=== PATIENT | female | born 1990 | race Caucasian/White ===

== ENCOUNTER → 2016-09-28 | Outpatient (CLI) | payer MEDICAID | END | disposition home or self-care (01) | LOC: LABWHC1 14:36 | PROVIDERS: ATTEND Internal Medicine Endocrinology, Diabetes & Metabolism | DX: E03.8 Other specified hypothyroidism (principal) | CPT/HCPCS: 36415; 84443 ==

== ENCOUNTER → 2017-02-01 | Outpatient (CLI) | payer MEDICAID | END | disposition home or self-care (01) | LOC: LABWHC1 07:43 | PROVIDERS: ATTEND Internal Medicine Endocrinology, Diabetes & Metabolism | DX: E03.8 Other specified hypothyroidism (principal) | CPT/HCPCS: 36415; 84443 ==

== ENCOUNTER → 2017-03-18 | Outpatient (CLI) | payer MEDICAID | END | disposition home or self-care (01) | LOC: LABWHC1 07:55 | PROVIDERS: ATTEND Internal Medicine Endocrinology, Diabetes & Metabolism | DX: E03.8 Other specified hypothyroidism (principal) | CPT/HCPCS: 36415; 84443 ==

== ENCOUNTER → 2017-03-30 | Outpatient (CLI) | payer MEDICAID ==
--- NOTE | 2017-03-30 15:01 | US ---
EXAMINATION TYPE: US OB <=14 wks transvag DATE OF EXAM: 03/30/2017 COMPARISON: NONE CLINICAL HISTORY: O46.91 BLEEDING AND SPOTTING. EXAM PERFORMED: Transvaginal (TV) and Transabdominal (TA) EXAM MEASUREMENTS: GESTATIONAL AGE / DATING Physician Established: Not established Dates by LMP: (7 weeks/3 days) EDC: 11/13/2017 Dates by First Scan: No previous Dates by Current Scan for: No pole visualized on this exam MATERNAL ANATOMY Uterus: 7.4 x 3.4 x 4.2 cm Right Ovary: 3.2 x 1.3 x 1.3 Left Ovary: 3.2 x 2.3 x 2.8 Post CDS / Adnexa: wnl Presence of free fluid: No Presence of corpus luteal cyst: Hypoechoic area visualized on left ovary measuring 1.6 x 1.1 x 1.3 cm Presence of subchorionic bleed: Yes, measuring 0.4 x 0.1 x 0.4 cm GESTATION / SURVEY MSD: 0.6 cm - too early to date IUP: No yolk sac or pole visualized on this exam Date of LMP: 02/06/2017 Beta HcG (if available): Not available at time of exam Anteverted uterus is seen. Endometrium appears thickened up to 17 mmr. There is 6 x 6 x 7 mm round an echoic area could reflect early gestational sac.No yolk sac or pole is present. No free fluid i s seen in pelvic cul-de-sac. Tiny curvilinear fluid collection inferiorly could reflect tiny subchori onic hemorrhage related to implantation. Both ovaries are identified. Within left ovary there is 1.6 cm hypoechoic hypervascular area in perip danyell could reflect corpus luteal cyst. No suspicious solid or cystic extraovarian adnexal masses are noted. IMPRESSION: Findings favor too early to visualize intrauterine however spontaneous is in diffe rential and ectopic is not excluded. Serial beta hCG and ultrasound follow-up is advised.
== END | disposition home or self-care (01) ==
LOC: RADUSWWP 13:10
PROVIDERS: ATTEND Obstetrics & Gynecology
DX: O46.91 Antepartum hemorrhage, unspecified, first trimester (principal); Z3A.14 14 weeks gestation of pregnancy
CPT/HCPCS: 76801; 76817; 84702; 86850; 86900; 86901

== ENCOUNTER → 2017-04-01 | Outpatient (CLI) | payer MEDICAID | END | disposition home or self-care (01) | LOC: LABWHC1 15:16 | PROVIDERS: ATTEND Obstetrics & Gynecology | DX: Z34.01 Encounter for supervision of normal first pregnancy, first trimester (principal) | CPT/HCPCS: 36415; 84702; 86850; 86870; 86880; 86900; 86901 ==

== ENCOUNTER → 2017-04-08 | Outpatient (CLI) | payer MEDICAID ==
[2017-04-08 13:09] LABS: Basophils % (A) 0 %; CH 31.3; CHCM 35.2; Eosinophils # (A) 0.2 k/uL (0-0.7); Eosinophils % (A) 1 %; HCT 43.8 % (34.0-46.0); HDW 2.59; HGB 14.9 gm/dL (11.4-16.0); Luc % (Auto) 1; Lymphocytes # (A) 2.1 k/uL (1.0-4.8); Lymphocytes % (A) 19 %; MCH 30.3 pg (25.0-35.0); MCV 89.3 fL (80.0-100.0); Mean Platelet Volume 6.5; Monocytes # (A) 0.5 k/uL (0-1.0); Monocytes % (A) 4 %; Neutrophils % (A) 74 %; RDW 13.7 % (11.5-15.5); WBC 10.8 k/uL (3.8-10.6); WBC (Perox) 11.17
[2017-04-08 14:11] LABS: ALT 32 U/L (9-52); AST 17 U/L (14-36); Alkaline Phosphatase 72 U/L (38-126); Anion Gap 10 mmol/L; Blood Urea Nitrogen 10 mg/dL (7-17); Calcium 9.9 mg/dL (8.4-10.2); Carbon Dioxide 26 mmol/L (22-30); Chloride 104 mmol/L (98-107); Cholesterol 152 mg/dL (<200); Glucose 84 mg/dL (74-99); HDL Cholesterol 33 mg/dL (40-60); Non-African American GFR(MDRD) >60 (>60 ml/min/1.73 sqM); Potassium 4.2 mmol/L (3.5-5.1); Sodium 140 mmol/L (137-145); Total Protein 7.1 g/dL (6.3-8.2)
[2017-04-08 15:00] LABS: Vitamin B12 561 pg/mL (239-931)
[2017-04-08 20:43] LABS: Hemoglobin A1C 4.9 % (4.2-6.1)
--- NOTE | 2017-04-09 09:08 | US ---
EXAMINATION TYPE: US OB <=14 wks transvag DATE OF EXAM: 04/08/2017 COMPARISON: 03/30/2017 CLINICAL HISTORY: Z36 FOLLOW UP PREV ADN US. Follow up prior abnormal ultrasound 03/30/17, miscarriage yesterday EXAM PERFORMED: Transvaginal (TV) and Transabdominal (TA) EXAM MEASUREMENTS: GESTATIONAL AGE / DATING Physician Established: not established Dates by LMP: (8 weeks/5 days) EDC: 11/13/17 Dates by First Scan: no pole visualized Dates by Current Scan for: no evidence of IUP seen today MATERNAL ANATOMY Uterus: 8.3 x 3.8 x 5.4cm Right Ovary: 3.5 x 2.6 x 1.6cm Left Ovary: 2.5 x 2.0 x 2.2cm Post CDS / Adnexa: wnl Presence of free fluid: no GESTATION / SURVEY IUP: No IUP seen at this time Date of LMP: 02/06/17 Beta HcG (if available): unavailable No evidence of IUP at this time. Nabothian cysts noted. Ectopic and spontaneous could be within the differential. Previous suspected gesta tional sac within the endometrial canal is not identified at this time. IMPRESSION: 1. No intrauterine gestation identified. Correlate with beta hCG. Follow-up exams can be performed as clinically indicated.
== END ==
LOC: RADUSWWP 11:49
PROVIDERS: ATTEND Obstetrics & Gynecology
DX: Z36 Encounter for antenatal screening of mother (principal); O99.281 Endocrine, nutritional and metabolic diseases complicating pregnancy, first trimester; E03.9 Hypothyroidism, unspecified; O99.89 Other specified diseases and conditions complicating pregnancy, childbirth and the puerperium; R73.9 Hyperglycemia, unspecified; O99.284 Endocrine, nutritional and metabolic diseases complicating childbirth; E78.4 Other hyperlipidemia; O26.811 Pregnancy related exhaustion and fatigue, first trimester; Z3A.00 Weeks of gestation of pregnancy not specified
CPT/HCPCS: 76801; 76817; 80053; 80061; 82306; 82607; 83036; 84439; 84443; 84702; 85025

== ENCOUNTER → 2017-04-16 | Outpatient (CLI) | payer MEDICAID | END | disposition home or self-care (01) | LOC: LABWHC1 08:18 | PROVIDERS: ATTEND Obstetrics & Gynecology | DX: O02.1 Missed abortion (principal) | CPT/HCPCS: 36415; 84702 ==

== ENCOUNTER → 2017-09-21 | Outpatient (CLI) | payer MEDICAID ==
[2017-09-21 08:24] LABS: HCT 38.5 % (34.0-46.0); HGB 13.3 gm/dL (11.4-16.0); MCH 29.5 pg (25.0-35.0); MCHC 34.5 g/dL (31.0-37.0); MCV 85.4 fL (80.0-100.0); Mean Platelet Volume 6.3; Platelet Count 346 k/uL (150-450); RBC 4.51 m/uL (3.80-5.40); RDW 13.1 % (11.5-15.5); WBC 12.5 k/uL (3.8-10.6)
[2017-09-21 08:44] LABS: Glucose 86 mg/dL (74-99)
[2017-09-21 08:50] LABS: T4, Free (Free Thyroxine) 1.11 ng/dL (0.78-2.19)
[2017-09-21 12:16] LABS: HIV AB P24 Non-Reactive (Non-Reactive); HIV P24 AG Non-Reactive (Non-Reactive)
[2017-09-22 04:21] LABS: Toxoplasma Antibody (IgG) <3.0 IU/mL (<7.2); Toxoplasma Antibody (IgM) <3.0 AU/mL (<8.0)
--- NOTE | 2017-09-22 08:22 | US ---
EXAMINATION TYPE: US OB <= 14 wk fetus DATE OF EXAM: 09/21/2017 COMPARISON: NONE CLINICAL HISTORY: Z36 CONFIRM DATES. Dates EXAM PERFORMED: Transabdominal (TA) EXAM MEASUREMENTS: GESTATIONAL AGE / DATING Dates by LMP: (8 weeks/5 days) EDC: 04/28/2018 Dates by Current Scan: (7 weeks/5 days) EDC: 05/05/2018 MATERNAL ANATOMY Uterus: 8.8 x 5.3 x 4.8 cm Right Ovary: 2.6 x 1.5 x 1.5 cm Left Ovary: 3.2 x 2.6 x 2.5 cm Post CDS / Adnexa: no free fluid Presence of free fluid: no Presence of subchorionic bleed: no GESTATION / SURVEY CRL: 1.4 cm (7 weeks/5 days) MSD: Seen, not measured Yolk Sac (normal less than 6mm): 2.5 Heart Rate: 168 bpm Rhythm: Normal IUP: Viable IUP Date of LMP: 07/22/2017, Beta HcG (if available): Not available at this time Live single IUP measuring 7 weeks 5 days. Left ovarian cystic appearing lesion seen = 2.5 x 1.9 x 2. 2 cm IMPRESSION: 1. Single intrauterine gestation estimated at 7 weeks 5 days gestation based on the current ultrasoun d measurements of the crown-rump length. This would have a calculated EDC of 05/05/2018. 2. Cardiac activity measures 168 bpm.
== END | disposition home or self-care (01) ==
LOC: RADUSWWP 07:50
PROVIDERS: ATTEND Obstetrics & Gynecology
DX: O26.811 Pregnancy related exhaustion and fatigue, first trimester (principal); O99.284 Endocrine, nutritional and metabolic diseases complicating childbirth; E03.8 Other specified hypothyroidism; Z3A.01 Less than 8 weeks gestation of pregnancy
CPT/HCPCS: 36415; 76801; 82565; 82947; 84439; 84443; 85027; 86762; 86777; 86778; 86780; 86850; 86900; 86901; 87340; 87390

== ENCOUNTER → 2017-10-18 | Outpatient (CLI) | payer MEDICAID ==
[2017-10-18 08:46] LABS: T4, Free (Free Thyroxine) 0.95 ng/dL (0.78-2.19)
== END | disposition home or self-care (01) ==
LOC: LABWHC1 07:46
PROVIDERS: ATTEND Internal Medicine Endocrinology, Diabetes & Metabolism
DX: E03.8 Other specified hypothyroidism (principal)
CPT/HCPCS: 36415; 84439; 84443

== ENCOUNTER → 2017-11-04 | Outpatient (CLI) | payer MEDICAID ==
--- NOTE | 2017-11-05 07:52 | ECHOF ---
Referral Reason:Palpitations MEASUREMENTS -------- HEIGHT: 157.5 cm WEIGHT: 65.8 kg BP: 117/70 RVIDd: 2.3 cm (< 3.3) IVSd: 0.8 cm (0.6 - 1.1) LVIDd: 4.5 cm (3.9 - 5.3) LVPWd: 0.9 cm (0.6 - 1.1) IVSs: 1.4 cm LVIDs: 2.8 cm LVPWs: 1.4 cm LAESV Index (A-L): 20.08 ml/m Ao Diam: 2.6 cm (2.0 - 3.7) AV Cusp: 2.0 cm (1.5 - 2.6) MV EXCURSION: 17.961 mm (> 18.000) MV EF SLOPE: 130 mm/s (70 - 150) EPSS: 0.4 cm MV E Adi: 0.80 m/s MV DecT: 205 ms MV A Adi: 0.50 m/s MV E/A Ratio: 1.61 RAP: 5.00 mmHg RVSP: 20.05 mmHg FINDINGS -------- Sinus rhythm. This was a technically good study. The left ventricular size is normal. Left ventricular wall thickness is normal. Overall left vent ricular systolic function is normal with, an EF between 60 - 65 %. The right ventricle is normal in size and function. Normal LA size by volume 22+/-6 ml/m2. The right atrium is normal in size. The aortic valve is trileaflet, and appears structurally normal. No aortic stenosis or regurgitation. The mitral valve is normal. Trace tricuspid regurgitation present. Right ventricular systolic pressure is normal at < 35 mmHg. Trace/mild (physiologic) pulmonic regurgitation. The aortic root size is normal. Normal inferior vena cava with normal inspiratory collapse consistent with estimated right atrial pre ssure of 5 mmHg. There is no pericardial effusion. CONCLUSIONS -------- 1. Sinus rhythm. 2. This was a technically good study. 3. The left ventricular size is normal. 4. Left ventricular wall thickness is normal. 5. Overall left ventricular systolic function is normal with, an EF between 60 - 65 %. 6. The right ventricle is normal in size and function. 7. Normal LA size by volume 22+/-6 ml/m2. 8. The right atrium is normal in size. 9. The aortic valve is trileaflet, and appears structurally normal. No aortic stenosis or regurgitati on. 10. The mitral valve is normal. 11. Trace tricuspid regurgitation present. 12. Right ventricular systolic pressure is normal at < 35 mmHg. 13. Trace/mild (physiologic) pulmonic regurgitation. 14. The aortic root size is normal. 15. Normal inferior vena cava with normal inspiratory collapse consistent with estimated right atrial pressure of 5 mmHg. 16. There is no pericardial effusion. DIRECTOR OF STRATEGIC SOURCING: Divya Vines RDCS
== END | disposition home or self-care (01) ==
LOC: RADECHMAIN 12:31
PROVIDERS: ATTEND Internal Medicine Interventional Cardiology
DX: I07.1 Rheumatic tricuspid insufficiency (principal); I37.1 Nonrheumatic pulmonary valve insufficiency; R00.2 Palpitations
CPT/HCPCS: 93225; 93226; 93306

== ENCOUNTER → 2017-12-14 | Outpatient (CLI) | payer MEDICAID ==
--- NOTE | 2017-12-15 10:37 | US ---
EXAMINATION TYPE: US OB anatomy transabd DATE OF EXAM: 12/14/2017 COMPARISON: US HISTORY: O36.62XO Maternal care for excessive growth, TECHNIQUE: Transabdominal (TA) EXAM MEASUREMENTS: GESTATIONAL AGE / DATING Physician Established: (19 weeks/5 days) EDC: 05/05/2018 Dates by LMP: (20 weeks/5 days) EDC: 04/28/2018 Dates by First Scan: (19 weeks/5 days) EDC: 05/05/2018 Dates by Current Scan for: (20 weeks/0 days) EDC: 05/03/2018 SURVEY IUP: Single PLACENTA: Posterior PREVIA: No previa LINN: 16.3 cm Normal CERVICAL LENGTH (transabdominal: norm > 3.0cm): 3.9 cm BIOMETRY PRESENTATION: Breech BPD: 4.7 cm 20 weeks / 1 days HC: 17.2 cm 19 weeks / 5 days AC: 15.8 cm 20 weeks / 6 days FL: 3.3 cm 20 weeks / 2 days ESTIMATED WEIGHT IN GRAMS: 360 grams ESTIMATED WEIGHT IN LBS/OZ: 0 lbs. 13 oz. WEIGHT PERCENTAGE BASED ON ESTABLISHED DATE: 88.3 % HC/AC: 1.0 Normal FL/AC: 20.9 Normal HEART RATE: 146 bpm RHYTHM: Normal ANATOMY SEEN (within normal limits): * Lateral Vent (< 1 cm) 0.8 cm * Cisterna Magna (< 1.1 cm) 0.6 cm * Nuchal Fold (< 0.6 cm) 0.3 cm * Cerebellum (varies with age) 2.2 cm Choroid Plexus (bilateral) Midline Falx Cavus Septi Pellucidi Four Chamber Heart Outflow tracts: LVOT/RVOT Stomach Situs Nose / Lips Diaphragm Kidneys (bilateral) Bladder Cord Insert Three Vessel Cord Longitudinal Spine Transverse Spine Arms (bilateral) Legs (bilateral) Growth according to dates, all anatomy appears normal. IMPRESSION: 1. Single intrauterine gestation estimated at 20 weeks 0 days gestation. This would have a calculated EDC of 05/03/2018. Correlate this with her physician established EDC of 05/05/2018. 2. Cardiac activity measures 146 bpm.
== END | disposition home or self-care (01) ==
LOC: RADUSWWP 16:24
PROVIDERS: ATTEND Obstetrics & Gynecology
DX: O36.62X0 Maternal care for excessive fetal growth, second trimester, not applicable or unspecified (principal); Z3A.20 20 weeks gestation of pregnancy
CPT/HCPCS: 76811

== ENCOUNTER → 2017-12-25 | Outpatient (CLI) | payer MEDICAID | END | disposition home or self-care (01) | LOC: LABWHC1 10:30 | PROVIDERS: ATTEND Internal Medicine Endocrinology, Diabetes & Metabolism | DX: E03.8 Other specified hypothyroidism (principal); E55.9 Vitamin D deficiency, unspecified | CPT/HCPCS: 36415; 82306; 84443 ==

== ENCOUNTER → 2018-01-13 | Outpatient (CLI) | payer MEDICAID ==
[2018-01-13 17:53] LABS: HCT 35.3 % (34.0-46.0); HGB 11.8 gm/dL (11.4-16.0); MCH 30.8 pg (25.0-35.0); MCHC 33.2 g/dL (31.0-37.0); MCV 92.6 fL (80.0-100.0); Mean Platelet Volume 5.9; Platelet Count 263 k/uL (150-450); RBC 3.82 m/uL (3.80-5.40); WBC 13.6 k/uL (3.8-10.6)
== END | disposition home or self-care (01) ==
LOC: LABWHC1 16:27
PROVIDERS: ATTEND Obstetrics & Gynecology
DX: Z34.82 Encounter for supervision of other normal pregnancy, second trimester (principal); Z3A.00 Weeks of gestation of pregnancy not specified
CPT/HCPCS: 36415; 82950; 83655; 85027; 86850

== ENCOUNTER → 2018-01-17 | Outpatient (CLI) | payer MEDICAID ==
[2018-01-17 12:51] LABS: Glucose 3 Hour, Gest 106 mg/dL
== END | disposition home or self-care (01) ==
LOC: LABWHC1 08:21
PROVIDERS: ATTEND Obstetrics & Gynecology
DX: O99.810 Abnormal glucose complicating pregnancy (principal); Z3A.00 Weeks of gestation of pregnancy not specified
CPT/HCPCS: 36415; 82951; 82952

== ENCOUNTER 2018-02-14 17:47 | Outpatient (CLI) | payer MEDICAID ==
[2018-02-14 18:46] VITALS: BP 130/72; PULSE 102; RESP 18; TEMP 97.8
--- NOTE | 2018-02-15 05:58 | P.MSEPDOC ---
Presenting Problems - Arrival Data Date of Arrival on Unit: 02/14/18 Time of Arrival on Unit: 17:47 Mode of Transport: Ambulatory - Complaint OB-Reason for Admission/Chief Complaint: Pain Comment: cramping Medical History - Information : 2 Para: 0 Term: 0 : 0 Abortions: Spontaneous or Elective: 1 Number of Living Children: 0 - Gestational Age Gestational Age by CHER (wks/days): 28 Weeks and 4 Days Review of Systems - Review of Systems Constitutional: No problems Breast: No problems ENT: No problems Cardiovascular: No problems Respiratory: No problems Gastrointestinal: No problems Genitourinary: No problems Musculoskeletal: No problems Neurological: No problems Skin: No problems Vital Signs - Temperature Temperature: 97.8 F Temperature Source: Temporal Artery Scan - Pulse Right Brachial Pulse Rate: 102 Pulse Assessment Method: Automatic Cuff - Respirations Respiratory Rate: 18 Oxygen Delivery Method: Room Air O2 Sat by Pulse Oximetry: 98 - Blood Pressure Right Arm Blood Pressure: 130/72 Blood Pressure Mean: 91 Blood Pressure Source: Automatic Cuff Medical Screen Scoring (Pre) - Cervical Exam Dilation: 0 cm = 0 Effacement: Exam Deferred Membranes: Intact - Uterine Contractions Frequency: N/A, > 5 minutes apart = 1 Duration: N/A Intensity: N/A - Maternal Vital Signs Maternal Temperature: N/A Maternal Blood Pressure: N/A Signs of Preeclampsia: N/A Maternal Respirations: N/A - Pain Assessment Pain Location and Character: Abdomen Pain Scale Used: Numeric (1 - 10) Pain Intensity: 4 Pain Management Goal: 2 Pain Description: *Acute Pain Radiation Location: none Pain Frequency: Intermittent Pain Behavior: Vocalization - Maternal Trauma Maternal Trauma: N/A - Assessment Baseline FHR: 140 Heart Rate - NICHD Category: Category I (Normal) = 0 NST: Reactive Position: N/A Station: N/A - Total Score Total Score (Pre): 1 - Level of Risk Level of Risk: Low (0-5) Physician Notification (Pre) - Physician Notified Physician Notified Date: 02/14/18 Physician Notified Time: 18:30 Physician/Practitioner Notifed:: Dr. Recinos Spoke With: Dr. Recinos New Order Received: Yes - Notification Comment Comment: discharge pt home, increase oral fluids, return if it gets stronger or more intense Disposition - Disposition OB Disposition: Discharge to home, Written follow up instructions reviewed Discharge Date: 02/14/18 Discharge Time: 18:40 I agree with the RN Medical Screening Exam: Yes Risk & Benefit of care provided described in d/c instruction: Yes Diagnosis: FALSE LABOR BEFORE 37 COMPLETED WEEKS OF GEST, THIRD TRI
== END 2018-02-14 18:40 | disposition home or self-care (01) ==
LOC: FBPOP 17:47
PROVIDERS: ATTEND Obstetrics & Gynecology
DX: O47.03 False labor before 37 completed weeks of gestation, third trimester (principal); Z3A.28 28 weeks gestation of pregnancy
CPT/HCPCS: 59025; 99213

== ENCOUNTER → 2018-03-31 | Outpatient (CLI) | payer MEDICAID | END | disposition home or self-care (01) | LOC: LABWHC1 07:41 | PROVIDERS: ATTEND Internal Medicine Endocrinology, Diabetes & Metabolism | DX: E03.8 Other specified hypothyroidism (principal) | CPT/HCPCS: 36415; 84443 ==

== ENCOUNTER → 2018-04-01 | Outpatient (CLI) | payer MEDICAID ==
--- NOTE | 2018-04-04 09:27 | US ---
EXAMINATION TYPE: US OB anatomy transabd DATE OF EXAM: 04/01/2018 COMPARISON: 12/14/2017 HISTORY: 27-year-old female O36.63X0 Maternal care for excessive growth, TECHNIQUE: Transabdominal (TA) FINDINGS: EXAM MEASUREMENTS: GESTATIONAL AGE / DATING Physician Established: (35 weeks/1 days) EDC: 05/05/2018 Dates by LMP: (36 weeks/1 days) EDC: 04/28/2018 Dates by First Scan: (35 weeks/1 days) EDC: 05/05/2018 Dates by Current Scan for: (36 weeks/2 days) EDC: 04/27/2018 (six days more growth than expected from 12/14/17). SURVEY IUP: Single PLACENTA: Fundal PREVIA: No previa LINN: 13.9 cm Normal CERVICAL LENGTH (transabdominal: norm > 3.0cm): 3.3 cm BIOMETRY PRESENTATION: Vertex BPD: 9.1 cm 36 weeks / 5 days HC: 32.1 cm 36 weeks / 1 days AC: 33.3 cm 37 weeks / 1 days FL: 7.1 cm 36 weeks / 3 days ESTIMATED WEIGHT IN GRAMS: 3046 grams ESTIMATED WEIGHT IN LBS/OZ: 6 lbs. 11 oz. WEIGHT PERCENTAGE BASED ON ESTABLISHED DATE: 90 % (previously 88th percentile) HC/AC: 0.96 Normal FL/AC: 21.40 Normal HEART RATE: 126 bpm RHYTHM: Normal ANATOMY SEEN (within normal limits): Midline Falx Four Chamber Heart Stomach Situs Diaphragm Kidneys (bilateral) Bladder Three Vessel Cord Transverse Spine ANATOMY NOT SEEN: Due to relatively advanced age Lateral Vent Cisterna Magna Cerebellum (varies with age) Choroid Plexus (bilateral) Cavus Septi Pellucidi Outflow Tracts: LVOT/RVOT Cord Insert Longitudinal Spine Arms (bilateral) Legs (bilateral) Nose / Lips Buffing Machine Tender notes: Viable single IUP measuring 36 weeks 2 days with a heart rate of 126bpm and an est imated delivery date of 04/27/2018. IMPRESSION: 1. Single live intrauterine with established gestational age of 35 weeks 1 day. There has b een 6 days more growth than expected from the patient's ultrasound of 12/14/2017 with measurements tucker cing the gestation now at 36 weeks 2 days. 2. EFW percentile has moved from the 88th percentile now to the 90th percentile. Continued follow-up as indicated.
== END ==
LOC: RADUSWWP 15:51
PROVIDERS: ATTEND Obstetrics & Gynecology
DX: O36.63X0 Maternal care for excessive fetal growth, third trimester, not applicable or unspecified (principal); Z3A.35 35 weeks gestation of pregnancy
CPT/HCPCS: 76811

== ENCOUNTER 2018-04-13 16:32 | Inpatient (IN) | payer MEDICAID ==
--- NOTE | 2018-04-13 17:20 | P.HPOB ---
History of Present Illness H&P Date: 04/13/18 Chief Complaint: Hypertension This patient is a pleasant 27-year-old 2 para 0 female estimated date of confinement 05/05/2018 estimated gestational age 36-6/7 weeks who presented to my office this afternoon for a routine visit. Patient's blood pressure was elevated to 130/88 and 132/82 at that time. Patient states that her blood pressure has been elevated the last 1-2 days at work and at home. 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 Patient has had some peripheral edema. Otherwise is without symptomatology. care has otherwise been uncomplicated with the exception of a kidney stone which she passed. Blood pressure here in labor and delivery has been elevated. Review of Systems Genitourinary: Reports Menstruation: Reports amenorrhea Past Medical History Past Medical History: Thyroid Disorder Additional Past Medical History / Comment(s): Patient has a history of hypothyroidism and renal calculi. History of Any Multi-Drug Resistant Organisms: None Reported Past Surgical History: Orthopedic Surgery Additional Past Surgical History / Comment(s): left foot Past Anesthesia/Blood Transfusion Reactions: No Reported Reaction Past Psychological History: No Psychological Hx Reported Smoking Status: Never smoker Past Alcohol Use History: None Reported Past Drug Use History: None Reported Medications and Allergies Home Medications Medication Instructions Recorded Confirmed Type Folic Acid 0.4 mg PO DAILY 02/14/18 04/13/18 History Levothyroxine Sodium [Tirosint] 88 mcg PO DAILY 02/14/18 04/13/18 History Pnv,Calcium 72/Iron/Folic Acid 1 tab PO DAILY 02/14/18 04/13/18 History [ Plus Tablet] Allergies Allergy/AdvReac Type Severity Reaction Status Date / Time bacitracin AdvReac Rash/Hives Verified 04/13/18 16:44 Exam Intake and Output 04/13/18 04/13/18 04/13/18 06:59 14:59 22:59 Other: Weight 80.739 kg - OBG Physical Exam Abdomen: bowel sounds normal, no diffuse tenderness, no bruit present, no guarding noted, no hepatomegaly, no splenomegaly, no mass Vulva: both: normal Vagina: normal moisture, no discharge Cervix: no lesion (Cervix is 2 cm dilated and uneffaced at this time.), no discharge Uterus: enlarged (Fundal height in the office is 37 cm) Results blood work shows she is A negative, rubella immune, RPR nonreactive, HIV nonreactive, hepatitis B negative, she did receive RhoGAM on February 02, Glucola was abnormal with a normal three-hour gtt. Group B strep was negative. Ultrasound approximately 12 days ago showed the baby to be 6 lbs. 11 oz. with normal fluid index. Assessment and Plan (1) Gestational hypertension Narrative/Plan: This is a pleasant 27-year-old 2 para 0 female 36-6/7 weeks gestation who has gestational hypertension. I have some blood work to rule out preeclampsia. Patient's blood pressure is significantly elevated at this time recommendations are to proceed with delivery at 37 weeks, for this reason we will proceed with induction of labor tomorrow. If there is evidence of maternal or compromise or laboratory abnormalities prior to that we'll proceed with delivery this evening. Patient and I and her family have discussed clinical circumstances and recommendations for delivery and all questions are answered. Current Visit: Yes Status: Acute Code(s): O13.9 - GESTATIONAL HTN W/O SIGNIFICANT PROTEINURIA, UNSP TRIMESTER SNOMED Code(s): 000896545 (2) Rh negative status during Current Visit: Yes Status: Chronic Code(s): O09.899 - SUPERVISION OF OTHER HIGH RISK PREGNANCIES, UNSP TRIMESTER; Z67.91 - UNSPECIFIED BLOOD TYPE, RH NEGATIVE SNOMED Code(s): 615964151
[2018-04-13 17:37] LABS: Basophils % (A) 0 %; Eosinophils # (A) 0.2 k/uL (0-0.7); Eosinophils % (A) 1 %; HCT 39.4 % (34.0-46.0); HGB 12.9 gm/dL (11.4-16.0); Lymphocytes # (A) 1.7 k/uL (1.0-4.8); Lymphocytes % (A) 14 %; MCH 29.7 pg (25.0-35.0); MCHC 32.8 g/dL (31.0-37.0); MCV 90.6 fL (80.0-100.0); Mean Platelet Volume 6.9; Monocytes # (A) 0.8 k/uL (0-1.0); Monocytes % (A) 6 %; Neutrophils # (A) 9.6 k/uL (1.3-7.7); Neutrophils % (A) 78 %; Platelet Count 241 k/uL (150-450); RBC 4.35 m/uL (3.80-5.40); RDW 14.5 % (11.5-15.5); WBC 12.4 k/uL (3.8-10.6)
[2018-04-13 17:40] LABS: Amorphous Sediment,Urine Rare /hpf; Appearance,Urine Clear (Clear); Bacteria,Urine Rare /hpf; Bilirubin,Urine Negative (Negative); Blood,Urine Negative (Negative); Color,Urine Yellow; Glucose,Urine (UA) Negative (Negative); Ketones,Urine Negative (Negative); Leukocyte Esterase,Urine Negative (Negative); Mucus,Urine Rare /hpf; Nitrite,Urine Negative (Negative); Protein,Urine 1+ (Negative); RBC,Urine 1 /hpf (0-5); Specific Gravity,Urine 1.009 (1.001-1.035); Squamous Epithelial Cell,Urine 5 /hpf (0-4); Urobilinogen,Urine <2.0 mg/dL (<2.0); WBC,Urine 3 /hpf (0-5)
[2018-04-13 17:44] LABS: ALT 34 U/L (9-52); AST 29 U/L (14-36); Blood Urea Nitrogen 11 mg/dL (7-17); LDH 522 U/L (313-618); Uric Acid 5.7 mg/dL (3.7-7.4)
[2018-04-14] MEDS ORDERED: OXYTOCIN 10 UNIT/ML 1 ML VIAL IM PRN (05:18)
[2018-04-14] MEDS ORDERED: TERBUTALINE 1 MG/ML VIAL SQ PRN (05:18)
[2018-04-14] MEDS ORDERED: METHYLERGONOVINE 0.2 MG/ML 1 ML AMP IM PRN (05:18)
[2018-04-14] MEDS ORDERED: OXYTOCIN 20 UNITS/1000 ML NS 1,000 ML IV SCH ×2 (05:18→23:15)
[2018-04-14] MEDS ORDERED: CARBOPROST TROMETHAMINE 250 MCG/ML 1 ML AMP IM PRN (05:18)
[2018-04-14] MEDS ORDERED: LIDOCAINE 0.5% (PF) 5 MG/ML (50 ML SDV) SQ PRN (05:18)
[2018-04-14] MEDS: LACTATED RINGERS 1,000 ML IV SCH ×3 (06:00→14:47)
--- NOTE | 2018-04-14 06:15 | P.PN ---
Progress Note - Text Progress Note Date: 04/14/18 Hospital day #2. Patient is resting overnight blood pressures remained 130s over 70s to 80s. Patient's highest blood pressures 150/100. Preeclampsia labs were normal. She does have 1+ proteinuria. As per our discussion last evening plan is to proceed with induction of labor at this time secondary to gestational hypertension. Examination shows patient be to simmers dilated and artificial rupture membranes was done for clear fluid. Plan is induction with Pitocin per protocol.
--- NOTE | 2018-04-14 06:45 | P.MSEPDOC ---
Presenting Problems - Arrival Data Date of Arrival on Unit: 04/13/18 Time of Arrival on Unit: 16:32 Mode of Transport: Ambulatory Vital Signs - Blood Pressure Right Arm Blood Pressure: 131/82 Blood Pressure Mean: 98 Blood Pressure Source: Automatic Cuff Physician Notification (Pre) - Physician Notified Spoke With: Kristopher New Order Received: No - Notification Comment Comment: Called Dr. Summers and reported PIH lab results and most recent blood pressure all wnl other than 1+ protein in urine Physician Notification (Post) - Notification Comment Comment: Dr. Recinos evaluated at [facility] in triage, pt admit to [facility] 10 Disposition - Disposition OB Disposition: [facility] Suite I agree with the RN Medical Screening Exam: Yes Risk & Benefit of care provided described in d/c instruction: Yes Diagnosis: GESTATIONAL HTN W/O SIGNIFICANT PROTEINURIA, THIRD TRIMESTER
[2018-04-14] MEDS ORDERED: ROPIVACAINE 5MG/ML 20ML VIAL ONE (14:35)
[2018-04-14] MEDS ORDERED: SODIUM CHLORIDE 0.9% 100 ML BAG ONE (14:35)
[2018-04-14] MEDS ORDERED: fentaNYL (PF) 50 MCG/ML 5 ML AMP ONE (14:35)
[2018-04-14] MEDS ORDERED: AMPICILLIN 2,000 MG in SODIUM CHLORIDE 0.9% 100 ML IVPB STA (17:57)
[2018-04-14] MEDS ORDERED: CITRIC ACID-SODIUM CITRATE 15 ML CUP PO ONE ×2 (18:52→22:02)
[2018-04-14] MEDS ORDERED: AMPICILLIN 1,000 MG in SODIUM CHLORIDE 0.9% 50 ML IVPB SCH (22:00)
[2018-04-14] MEDS ORDERED: ceFAZolin IN SWFI 2 GM/20 ML SYRINGE IVP STA (22:07)
[2018-04-14] MEDS ORDERED: MORPHINE SULFATE (PF) 0.3 MG/0.3 ML SYR ONE (22:23)
[2018-04-14] MEDS ORDERED: ONDANSETRON 4 MG/2 ML VIAL ONE (22:23)
[2018-04-14] MEDS ORDERED: OXYTOCIN 10 UNIT/ML 1 ML VIAL ONE (22:23)
[2018-04-14] MEDS ORDERED: PHENYLEPHRINE-0.9% NACL SYG 1 MG/10 ML SYRINGE ONE (22:23)
[2018-04-14] MEDS ORDERED: ZOLPIDEM 5 MG TAB PO PRN (23:09)
[2018-04-14] MEDS ORDERED: METOCLOPRAMIDE 5 MG/ML 2 ML VIAL IVP PRN (23:09)
[2018-04-14] MEDS ORDERED: SIMETHICONE 80 MG CHEWABLE PO PRN (23:09)
[2018-04-14] MEDS ORDERED: diphenhydrAMINE 50 MG/ML 1 ML VIAL IVP PRN (23:09)
[2018-04-14] MEDS ORDERED: ONDANSETRON 4 MG/2 ML VIAL IVP PRN (23:09)
[2018-04-14] MEDS ORDERED: LANOLIN CREAM 5 GM TUBE TOPICAL PRN (23:09)
[2018-04-14] MEDS ORDERED: Rhogam IMMUNE GLOBULIN 1,500 UNIT/1 ML IM ONE (23:09)
[2018-04-14] MEDS ORDERED: ACETAMINOPHEN TAB 325 MG TAB PO PRN (23:09)
[2018-04-14] MEDS ORDERED: NALOXONE 0.4 MG/ML 1 ML VIAL IV PRN (23:09)
[2018-04-14] MEDS ORDERED: diphenhydrAMINE 25 MG CAP PO PRN (23:09)
--- NOTE | 2018-04-14 23:20 | P.OP ---
Date of Procedure: 04/14/18 Preoperative Diagnosis: #1: 37-0/7 week . #2: Gestational hypertension. #3: Failure to progress and cephalopelvic dystocia. Postoperative Diagnosis: Same Procedure(s) Performed: Primary low transverse section Anesthesia: spinal Surgeon: Rober Recinos [employer] Production Liaison #1: Olga Lidia Villatoro Estimated Blood Loss (ml): 600 Pathology: other (Placenta) Condition: stable Disposition: floor Indications for Procedure: Please see dictated H&P for intimate details of this patient's admission. Brief summary this is a pleasant 27-year-old 2 para 0 female 37-0/7 weeks gestation admitted from the office with gestational hypertension. Preeclampsia evaluation was negative patient had persistent blood pressure elevations greater than 140/90. This time we elected proceed with induction per recommendations. Patient is 2 cm dilated and progressed well today to 7 cm but despite adequate labor did not progress past -1 station and 7 cm. At this time I discussed continued labor versus section she requests a section at this time. Patient stands the surgery and risks including risks of infection, bleeding, possible injury bowel, bladder, vessels, and/or other organs. Understands risk of DVT and pulmonary embolism. His questions are answered and a written consent is obtained. Operative Findings: This is a viable female infant Apgars 8 and 9 delivery time is 20-39 hours. Infant was in the right occiput transverse presentation. Description of Procedure: This patient has a Grey catheter placed to straight drain. Patient subsequently taken to the operating room where she sat up and the epidural catheter is removed and spinal anesthetic is administered without incident. With adequate level of anesthesia she has abdominal prep and drape. Scalpels and taken Pfannenstiel skin incision is then made. A second scalpel is taken down the fascia the fascia scored with a knife. Fascial incision extended bilaterally using the Fuller scissors. Fascia dissected off the rectus muscles sharply. Rectus muscles are the peritoneum identified and entered sharply. The peritoneal incision extended superior and inferior without difficulty. Bladder blade is then placed. Bladder peritoneum was taken sharply off the lower uterine segment. Scalpels then taken a low transverse uterine incision is then made. Using a hemostat I enter the uterine cavity bluntly and there is loss of clear fluid. This incision is extended bluntly. Infant's head is then guided through the incision with fundal pressure. Infant' s head is found to be right occiput transverse presentation. Mouth and nares are bulb suctioned. There is no evidence of nuchal cord. We then have deliver the rest this 's body. This is a vigorous viable female infant Apgars are 8 and 9 delivery time is 20-39 hours. After delivery of the infant the umbilical cord is doubly clamped and cut appears to be trivascular. Cord blood is obtained for Rh status placenta is manually removed intact. Uterus is externalized and uterine incision demarcated with Barnes clamps and closed using 0 Vicryl running locked fashion 2 layers. Excellent hemostasis is noted. Bladder peritoneum was then reapproximated using a 3-0 running fashion. Excess fluid is removed from the abdomen and pelvis uterus placed back into the abdomen. Uterus tubes and ovary appear normal for term gestation. Parietal peritoneum was then closed using 0 Vicryl running fashion. Rectus muscles reapproximated Vicryl interrupted fashion. Fascial incision is closed using 0 PDS in a running fashion. Fascial incision is intact and hemostatic. Subcutaneous tissues and closed using a 3-0 Vicryl. Skin is and closed using basilia. All counts are correct 3. There are no complications. Infant and mother taken the birthing suite in satisfactory condition.
[2018-04-15] MEDS: KETOROLAC 30 MG/ML 1 ML VIAL IVP PRN ×2 (00:57→07:21)
[2018-04-15] MEDS: LACTATED RINGERS 1,000 ML IV SCH ×4 (00:59→17:08)
[2018-04-15] MEDS: ceFAZolin IN SWFI 2 GM/20 ML SYRINGE IVP SCH ×2 (05:54→12:08)
--- NOTE | 2018-04-15 05:57 | P.PNOBGPC ---
Subjective - Subjective Patient reports: Reports appetite normal, Reports voiding normally, Reports pain well controlled, Reports ambulating normally : doing well Objective - Vital Signs Latest vital signs: Vital Signs Temp Pulse Resp BP Pulse Ox 04/15/18 04:00 98.2 F 80 16 138/70 99 04/15/18 01:14 93 16 134/68 04/15/18 00:44 98.3 F 96 16 144/69 97 04/15/18 00:14 98.3 F 90 16 138/78 98 04/14/18 23:59 92 16 148/75 98 04/14/18 23:44 104 H 16 129/73 94 L 04/14/18 23:20 111 H 16 140/80 96 04/14/18 23:05 98.4 F 121 H 16 130/62 100 04/14/18 06:45 131/82 Intake and Output 04/14/18 04/14/18 04/15/18 14:59 22:59 06:59 Intake Total 1000 52.5 Output Total 100 Balance 1000 -47.5 Intake: Intake, IV Titration 1000 52.5 Amount Lactated Ringers 1,000 ml 1000 @ 125 mls/hr IV .Q8H MAI Rx#:[id number] Oxytocin 20 Units/1000 ml 52.5 Ns 1,000 ml @ 1 MILLIUNIT/MIN 3 mls/hr IV .Q24H MAI Rx#:[id number] Output: Urine 100 Other: # Voids 4 - Exam Lungs: bilateral: normal Chest: Normal S1, Normal S2 Extremities: Present: normal Abdomen: Present: normal appearance, soft. Absent: distention, tenderness Incision: Present: normal, dry, intact Uterus: Present: normal, firm Assessment and Plan Assessment: Post operative day #1. Patient is resting without complaints. Vital signs are stable she's afebrile. Uterus is firm nontender and her incision is intact and dry. Blood pressures are remaining stable. My impression is a normal postoperative course. Plan is to advance her diet, encourage ambulation, check a CBC, and continue routine postoperative care (1) Gestational hypertension Current Visit: Yes Status: Acute Code(s): O13.9 - GESTATIONAL HTN W/O SIGNIFICANT PROTEINURIA, UNSP TRIMESTER SNOMED Code(s): 816332543 (2) Rh negative status during Current Visit: Yes Status: Chronic Code(s): O09.899 - SUPERVISION OF OTHER HIGH RISK PREGNANCIES, UNSP TRIMESTER; Z67.91 - UNSPECIFIED BLOOD TYPE, RH NEGATIVE SNOMED Code(s): 025819339
[2018-04-15 08:11] LABS: Basophils % (A) 0 %; Eosinophils # (A) 0.1 k/uL (0-0.7); Eosinophils % (A) 0 %; HCT 36.9 % (34.0-46.0); HGB 12.4 gm/dL (11.4-16.0); Lymphocytes # (A) 1.6 k/uL (1.0-4.8); Lymphocytes % (A) 8 %; MCH 30.3 pg (25.0-35.0); MCHC 33.7 g/dL (31.0-37.0); MCV 89.9 fL (80.0-100.0); Mean Platelet Volume 7.2; Monocytes # (A) 0.8 k/uL (0-1.0); Monocytes % (A) 4 %; Neutrophils # (A) 17.5 k/uL (1.3-7.7); Neutrophils % (A) 88 %; Platelet Count 218 k/uL (150-450); RDW 14.4 % (11.5-15.5)
[2018-04-15] MEDS: SENNOSIDES-DOCUSATE SODIUM 1 EACH TAB PO SCH ×2 (08:41→20:30)
--- NOTE | 2018-04-15 10:48 | P.PN ---
Progress Note - Text Progress Note Date: 04/15/18 Postoperative day 1 status post section under spinal anesthesia, and intrathecal morphine given for postoperative analgesia, patient doing well, there is no anesthesia related complications, Patient had no headache, vital signs stable , Assessment and plan= postop day 1 status post , doing well there is no anesthesia related complication.
[2018-04-15] MEDS: IBUPROFEN 600 MG TAB PO PRN ×2 (14:26→20:30)
[2018-04-15] MEDS: HYDROcodone/APAP 5-325MG 1 EACH TAB PO PRN (23:27)
--- NOTE | 2018-04-16 06:28 | P.PNOBGPC ---
Subjective - Subjective Patient reports: Reports appetite normal, Reports voiding normally, Reports pain well controlled, Reports ambulating normally : doing well Objective - Vital Signs Latest vital signs: Vital Signs Temp Pulse Resp BP Pulse Ox 04/16/18 00:00 98.0 F 68 16 120/55 04/15/18 20:00 98.2 F 85 18 117/60 04/15/18 16:00 98.0 F 79 18 117/58 95 04/15/18 12:00 98.9 F 90 18 138/77 98 04/15/18 08:00 98.9 F 88 18 124/82 95 Intake and Output 04/15/18 04/15/18 04/16/18 14:59 22:59 06:59 Intake Total 600 Output Total 100 450 Balance 500 -450 Intake: Oral 600 Output: Urine 100 450 Other: # Voids 800 - Exam Lungs: bilateral: normal Chest: Normal S1, Normal S2 Extremities: Present: normal Abdomen: Present: normal appearance, soft. Absent: distention, tenderness Incision: Present: normal, dry, intact Uterus: Present: normal, firm - Labs Labs: Abnormal Lab Results - Last 24 Hours (Table) 04/15/18 Range/Units 07:37 WBC 20.0 H (3.8-10.6) k/uL Neutrophils # 17.5 H (1.3-7.7) k/uL Assessment and Plan Assessment: Post operative day #2. Patient is resting without complaints. Vital signs are stable blood pressures are excellent. Uterus is firm nontender her incision is intact and dry. My impression this is a normal postoperative course. Plan is to continue routine postoperative care and discharge home tomorrow. (1) Gestational hypertension Current Visit: Yes Status: Acute Code(s): O13.9 - GESTATIONAL HTN W/O SIGNIFICANT PROTEINURIA, UNSP TRIMESTER SNOMED Code(s): 394045935 (2) Rh negative status during Current Visit: Yes Status: Chronic Code(s): O09.899 - SUPERVISION OF OTHER HIGH RISK PREGNANCIES, UNSP TRIMESTER; Z67.91 - UNSPECIFIED BLOOD TYPE, RH NEGATIVE SNOMED Code(s): 365152900
[2018-04-16] MEDS: SENNOSIDES-DOCUSATE SODIUM 1 EACH TAB PO SCH ×2 (08:49→20:52)
[2018-04-16] MEDS: IBUPROFEN 600 MG TAB PO PRN ×2 (08:49→20:52)
[2018-04-16] MEDS: HYDROcodone/APAP 5-325MG 1 EACH TAB PO PRN ×3 (11:17→23:09)
[2018-04-17] MEDS: IBUPROFEN 600 MG TAB PO PRN (05:01)
--- NOTE | 2018-04-17 07:36 | P.PNOBGPC ---
Subjective - Subjective Patient reports: Reports appetite normal, Reports voiding normally, Reports pain well controlled, Reports ambulating normally : doing well Objective - Vital Signs Latest vital signs: Vital Signs Temp Pulse Resp BP Pulse Ox 04/16/18 23:27 97.8 F 81 16 128/80 04/16/18 16:00 98.5 F 85 18 115/67 97 04/16/18 08:45 97.7 F 78 18 114/62 97 Intake and Output 04/16/18 04/17/18 04/17/18 22:59 06:59 14:59 Other: # Voids 3 2 - Exam Lungs: bilateral: normal Chest: Normal S1, Normal S2 Extremities: Present: normal Abdomen: Present: normal appearance, soft. Absent: distention, tenderness Incision: Present: normal, dry, intact Uterus: Present: normal, firm Assessment and Plan Assessment: Post operative day #3. Patient is resting without complaints wishes to go home. Vital signs are stable and she is afebrile. Uterus is firm nontender and her incision is intact and dry. My impression is a normal postoperative course. Plan is to continue routine postoperative care and discharge home later today. (1) Gestational hypertension Current Visit: Yes Status: Acute Code(s): O13.9 - GESTATIONAL HTN W/O SIGNIFICANT PROTEINURIA, UNSP TRIMESTER SNOMED Code(s): 854939299 (2) Rh negative status during Current Visit: Yes Status: Chronic Code(s): O09.899 - SUPERVISION OF OTHER HIGH RISK PREGNANCIES, UNSP TRIMESTER; Z67.91 - UNSPECIFIED BLOOD TYPE, RH NEGATIVE SNOMED Code(s): 024655736
--- NOTE | 2018-04-17 07:54 | P.DS ---
Providers Date of admission: 04/13/18 17:08 Expected date of discharge: 04/17/18 Attending physician: Rober Recinos Primary care physician: Stated None - Discharge Diagnosis(es) (1) Gestational hypertension Current Visit: Yes Status: Acute (2) Rh negative status during Current Visit: Yes Status: Chronic Hospital Course: Please see dictated H&P for intimate details of this patient's admission. Brief summary this a pleasant 27-year-old 2 para 0 female 37 weeks gestation admitted for gestational hypertension. Patient has induction of labor and subsequent was on have a primary low transverse section for cephalopelvic dystocia. Postoperative patient does well. Blood pressures returned to normal after delivery. Postoperative 3 she felt to be stable for discharge home follow up with me in 1 week. Procedures: Induction of labor and primary low transverse section. Patient Condition at Discharge: Good Plan - Discharge Summary New Discharge Prescriptions: New HYDROcodone/APAP 5-325MG [Magee 5-325] 2 each PO Q4HR PRN #36 tab PRN Reason: Pain Ibuprofen [Motrin] 600 mg PO Q6HR PRN #40 tab PRN Reason: Mild Pain Or Fever >= 100.5 No Action Folic Acid 0.4 mg PO DAILY Pnv,Calcium 72/Iron/Folic Acid [ Plus Tablet] 1 tab PO DAILY Levothyroxine Sodium [Tirosint] 88 mcg PO DAILY Discharge Medication List Folic Acid 0.4 mg PO DAILY 02/14/18 [History] Levothyroxine Sodium [Tirosint] 88 mcg PO DAILY 02/14/18 [History] Pnv,Calcium 72/Iron/Folic Acid [ Plus Tablet] 1 tab PO DAILY 02/14/18 [ History] HYDROcodone/APAP 5-325MG [Magee 5-325] 2 each PO Q4HR PRN #36 tab 04/17/18 [Rx] Ibuprofen [Motrin] 600 mg PO Q6HR PRN #40 tab 04/17/18 [Rx] Follow up Appointment(s)/Referral(s): Rober Recinos MD [STAFF PHYSICIAN] - 04/25/18 1:30 pm (Please see me for your check as well on Wednesday, May 25 at 2:30 PM.) Patient Instructions/Handouts: (DC) Activity/Diet/Wound Care/Special Instructions: No strenuous activity or heavy lifting for 6 weeks. No intercourse or anything per vagina for 6 weeks. Please call if any fever, chills, excessive vaginal bleeding, and/or abdominal pain. Discharge Disposition: HOME SELF-CARE
[2018-04-17 08:08] VITALS: BP 128/78; PULSE 79; RESP 18; TEMP 98.2
== END 2018-04-17 11:10 | disposition home or self-care (01) | DRG 766 ==
LOC: FBPOP 16:32 → 4FBP 16:53 → OBSVTOIN 17:08
PROVIDERS: ADMIT Obstetrics & Gynecology; ATTEND Obstetrics & Gynecology
PROC: 00HU33Z Insertion of Infusion Device into Spinal Canal, Percutaneous Approach (ICD-10-PCS; 2018-04-13)
PROC: 3E0R3BZ Introduction of Anesthetic Agent into Spinal Canal, Percutaneous Approach (ICD-10-PCS; 2018-04-13)
PROC: 3E0234Z Introduction of Serum, Toxoid and Vaccine into Muscle, Percutaneous Approach (ICD-10-PCS; 2018-04-14)
PROC: 10D00Z1 Extraction of Products of Conception, Low, Open Approach (ICD-10-PCS; principal; 2018-04-14 22:25)
DX: O12.14 Gestational proteinuria, complicating childbirth (principal); O65.9 Obstructed labor due to maternal pelvic abnormality, unspecified; O62.2 Other uterine inertia; O99.284 Endocrine, nutritional and metabolic diseases complicating childbirth; E03.9 Hypothyroidism, unspecified; Z67.11 Type A blood, Rh negative; O26.893 Other specified pregnancy related conditions, third trimester; Z3A.37 37 weeks gestation of pregnancy; Z37.0 Single live birth; Z23 Encounter for immunization; Z79.890 Hormone replacement therapy; Z79.899 Other long term (current) drug therapy; Z87.442 Personal history of urinary calculi; Z88.1 Allergy status to other antibiotic agents
CPT/HCPCS: 59025; 81001; 82565; 83615; 84450; 84460; 84520; 84550; 85025; 86850; 86870; 86880; 86900; 86901; 88307

== ENCOUNTER → 2018-05-04 | Outpatient (CLI) | payer MEDICAID | END | disposition home or self-care (01) | LOC: LABWHC1 14:36 | PROVIDERS: ATTEND Internal Medicine Endocrinology, Diabetes & Metabolism | DX: E03.8 Other specified hypothyroidism (principal) | CPT/HCPCS: 36415; 84443 ==

== ENCOUNTER → 2018-06-13 | Outpatient (CLI) | payer MEDICAID | END | disposition home or self-care (01) | LOC: LABWHC1 13:18 | PROVIDERS: ATTEND Internal Medicine Endocrinology, Diabetes & Metabolism | DX: E03.8 Other specified hypothyroidism (principal) | CPT/HCPCS: 36415; 84443 ==

== ENCOUNTER → 2019-05-02 | Outpatient (CLI) | payer MEDICAID | END | disposition home or self-care (01) | LOC: LABWHC1 07:52 | PROVIDERS: ATTEND Internal Medicine Endocrinology, Diabetes & Metabolism | DX: E03.8 Other specified hypothyroidism (principal) | CPT/HCPCS: 36415; 82306; 84443 ==

== ENCOUNTER → 2019-07-28 | Outpatient (CLI) | payer MEDICAID | END | disposition home or self-care (01) | LOC: LABWHC1 11:27 | PROVIDERS: ATTEND Internal Medicine Endocrinology, Diabetes & Metabolism | DX: E03.8 Other specified hypothyroidism (principal) | CPT/HCPCS: 36415; 82306; 84443 ==

== ENCOUNTER → 2020-01-24 | Outpatient (CLI) | payer MEDICAID | END | disposition home or self-care (01) | LOC: LABWHC1 08:05 | PROVIDERS: ATTEND Internal Medicine Endocrinology, Diabetes & Metabolism | DX: E03.8 Other specified hypothyroidism (principal); E55.9 Vitamin D deficiency, unspecified | CPT/HCPCS: 36415; 82306; 84443 ==

== ENCOUNTER → 2020-03-28 | Outpatient (CLI) | payer MEDICAID ==
[2020-03-28 08:15] LABS: Basophils # (A) 0.1 k/uL (0-0.2); Basophils % (A) 1 %; Eosinophils # (A) 0.3 k/uL (0-0.7); Eosinophils % (A) 3 %; HCT 42.9 % (34.0-46.0); HGB 13.8 gm/dL (11.4-16.0); Lymphocytes # (A) 2.5 k/uL (1.0-4.8); Lymphocytes % (A) 26 %; MCH 27.8 pg (25.0-35.0); MCHC 32.2 g/dL (31.0-37.0); MCV 86.2 fL (80.0-100.0); Mean Platelet Volume 6.4; Monocytes # (A) 0.5 k/uL (0-1.0); Monocytes % (A) 5 %; Neutrophils # (A) 6.1 k/uL (1.3-7.7); Neutrophils % (A) 64 %; Platelet Count 295 k/uL (150-450); RBC 4.98 m/uL (3.80-5.40); RDW 14.2 % (11.5-15.5); WBC 9.6 k/uL (3.8-10.6)
[2020-03-28 12:02] LABS: African American GFR (CKD) 115.5 (60.0-200.0); Albumin 4.5 g/dL (3.80-4.90); Albumin/Globulin Ratio 2.14 (1.60-3.17); Anion Gap 8.5 mmol/L (4.00-12.00); BUN/Creat Ratio 18.75 Ratio (12.00-20.00); Calcium 9.6 mg/dL (8.7-10.3); Carbon Dioxide 25.5 mmol/L (21.6-31.8); Chol/HDL Ratio 4.7; Globulin 2.1 g/dL (1.6-3.3); LDL Cholesterol,Calculated 88.6 mg/dL (0.0-131.0); Non-African American GFR(CKD) 99.6 (60.0-200.0); Potassium 3.8 mmol/L (3.5-5.5); Total Protein 6.6 g/dL (6.2-8.2); VLDL Calculation 22.4 mg/dL (5.00-40.00)
[2020-03-28 12:09] LABS: T4, Free (Free Thyroxine) 1.4 ng/dL (0.80-1.80)
== END | disposition home or self-care (01) ==
LOC: LABWHC1 07:27
PROVIDERS: ATTEND Internal Medicine Endocrinology, Diabetes & Metabolism
DX: Z00.00 Encounter for general adult medical examination without abnormal findings (principal); R03.0 Elevated blood-pressure reading, without diagnosis of hypertension; E03.8 Other specified hypothyroidism
CPT/HCPCS: 36415; 80053; 80061; 84439; 84443; 85025

== ENCOUNTER → 2020-05-31 | Outpatient (CLI) | payer MEDICAID | END | disposition home or self-care (01) | LOC: LABWHC1 07:53 | PROVIDERS: ATTEND Internal Medicine Endocrinology, Diabetes & Metabolism | DX: E03.8 Other specified hypothyroidism (principal) | CPT/HCPCS: 36415; 84443 ==

== ENCOUNTER → 2020-07-29 | Outpatient (CLI) | payer MEDICAID | END | disposition home or self-care (01) | LOC: LABWHC1 07:41 | PROVIDERS: ATTEND Internal Medicine Endocrinology, Diabetes & Metabolism | DX: E03.8 Other specified hypothyroidism (principal) | CPT/HCPCS: 36415; 84443 ==

== ENCOUNTER → 2020-08-30 | Outpatient (CLI) | payer MEDICAID | END | disposition home or self-care (01) | LOC: LABWHC1 07:37 | PROVIDERS: ATTEND Internal Medicine Endocrinology, Diabetes & Metabolism | DX: E03.8 Other specified hypothyroidism (principal); E55.9 Vitamin D deficiency, unspecified | CPT/HCPCS: 36415; 82306; 84443 ==

== ENCOUNTER → 2020-10-09 | Outpatient (CLI) | payer SELFPAY ==
[2020-10-09 13:23] LABS: African American GFR (CKD) >90 (>60 ml/min/1.73 sqM); Glucose 93 mg/dL (74-99); Non-African American GFR(CKD) >90 (>60 ml/min/1.73 sqM)
[2020-10-09 13:33] LABS: HCT 38.6 % (34.0-46.0); MCH 31.3 pg (25.0-35.0); MCHC 36.3 g/dL (31.0-37.0); MCV 86.3 fL (80.0-100.0); Mean Platelet Volume 6.3; Platelet Count 260 k/uL (150-450); RBC 4.47 m/uL (3.80-5.40); RDW 13.4 % (11.5-15.5); WBC 10.6 k/uL (3.8-10.6)
[2020-10-09 13:41] LABS: T4, Free (Free Thyroxine) 1.15 ng/dL (0.78-2.19)
--- NOTE | 2020-10-09 15:17 | US ---
EXAMINATION TYPE: Transabdominal DATE OF EXAM: 10/09/2020 12:41 PM COMPARISON: NONE CLINICAL HISTORY: Z36 confirm dates. EXAM PERFORMED: Transvaginal (TV) and Transabdominal (TA) EXAM MEASUREMENTS: GESTATIONAL AGE / DATING Physician Established: Not yet established Dates by LMP: 08/14/2020 (8 weeks/0 days) EDC: 05/21/2021 Dates by First Scan: No previous this is first scan Dates by Current Scan for: (7 weeks/1 days) EDC: 05/27/2021 MATERNAL ANATOMY Uterus: 10.6 x 4.7 x 6.6 cm Right Ovary: 3.9 x 2.3 x 2.5 cm Left Ovary: 3.1 x 1.9 x 2.3 cm Post CDS / Adnexa: small amount of free fluid Presence of corpus luteal cyst: 1.7 x 1.6 x 1.9 cm complex lesion right ovary, probable corpus luteal cyst. GESTATION / SURVEY CRL: 1.0 cm (7 weeks/1 days) Yolk Sac (normal less than 6mm): 0.4cm Heart Rate: 141 bpm Rhythm: Normal Date of LMP: 08/14/2020 Beta HcG (if available): not available Single viable IUP. IMPRESSION: Single intrauterine gestation estimated at 7 weeks 1 day gestation based on the current crown rump le ngth. Cardiac activity measures 141 bpm.
[2020-10-09 22:42] LABS: HIV 2 AB Non-Reactive (Non-Reactive); HIV AB P24 Non-Reactive (Non-Reactive); HIV P24 AG Non-Reactive (Non-Reactive)
[2020-10-10 03:55] LABS: T3, Uptake 25 % (23-37)
[2020-10-10 11:43] LABS: Hepatitis B Surface Antigen Non-Reactive (Non-Reactive)
== END | disposition home or self-care (01) ==
LOC: RADUSWWP 12:14
PROVIDERS: ATTEND Obstetrics & Gynecology
DX: Z34.81 Encounter for supervision of other normal pregnancy, first trimester (principal); Z3A.01 Less than 8 weeks gestation of pregnancy
CPT/HCPCS: 76801; 76817; 82565; 82947; 84439; 84443; 84479; 85027; 86762; 86780; 86850; 86900; 86901; 87340; 87390

== ENCOUNTER → 2020-11-29 | Outpatient (CLI) | payer MEDICAID | END | disposition home or self-care (01) | LOC: LABWHC1 07:31 | PROVIDERS: ATTEND Obstetrics & Gynecology | DX: Z34.82 Encounter for supervision of other normal pregnancy, second trimester (principal); Z3A.00 Weeks of gestation of pregnancy not specified | CPT/HCPCS: 36415; 84439; 84443; 84479 ==

== ENCOUNTER → 2020-12-31 | Outpatient (CLI) | payer MEDICAID ==
--- NOTE | 2021-01-01 07:16 | US ---
EXAMINATION TYPE: US OB anatomy transabd DATE OF EXAM: 12/31/2020 COMPARISON: US HISTORY: O36.62X0 large for dates , nausea and vomiting per patient; TECHNIQUE: Transabdominal (TA) EXAM MEASUREMENTS: GESTATIONAL AGE / DATING Physician Established: (19 weeks/0 days) EDC: 05/27/2021 Dates by LMP: (19 weeks/6 days) EDC: 05/21/2021 Dates by First Scan: (19 weeks/0 days) EDC: 05/27/2021 Dates by Current Scan for: (19 weeks/1 day) EDC: 05/26/2021 SURVEY IUP: Single PLACENTA: Anterior ; posterior wall focal myometrial contraction was noted initially, and subsided at exam's end. PREVIA: No previa LINN: 14.6 cm Normal CERVICAL LENGTH (transabdominal: norm > 3.0cm): 4.7 cm BIOMETRY PRESENTATION: Breech LIE: Longitudinal BPD: 4.46 cm 19 weeks / 3 days HC: 16.27 cm 19 weeks / 0 days AC: 14.81 cm 20 weeks / 1 day FL: 2.93 cm 19 weeks / 0 days ESTIMATED WEIGHT IN GRAMS: 297.85 grams ESTIMATED WEIGHT IN LBS/OZ: 0 lbs. 11 oz. WEIGHT PERCENTAGE BASED ON ESTABLISHED DATE: 27.7 % HC/AC: 1.10 Normal FL/AC: 19.78 Normal HEART RATE: 137 bpm RHYTHM: Normal ANATOMY SEEN (within normal limits): * Lateral Vent (< 1 cm) 0.6 cm * Cisterna Magna (< 1.1 cm) 0.4 cm * Nuchal Fold (< 0.6 cm) 0.4 cm * Cerebellum (varies with age) 1.9 cm Choroid Plexus (bilateral) Midline Falx Cavus Septi Pellucidi Four Chamber Heart Outflow tracts: LVOT/RVOT Stomach Situs Diaphragm Kidneys (bilateral) Bladder Cord Insert Three Vessel Cord Longitudinal Spine Transverse Spine Arms (bilateral) Legs (bilateral) ANATOMY NOT SEEN: Nose / Lips: US attempted and may be suboptimal due to gestation less than 20 weeks. Single, live IUP,19 weeks/1 day, EDC: 05/26/2021,HR 137bpm. IMPRESSION: 1. Single live intrauterine measuring 19 weeks and 1 day by sonographic criteria. 2. nose and lips not well seen, likely due to young gestational age.
== END | disposition home or self-care (01) ==
LOC: RADUSWWP 16:20
PROVIDERS: ATTEND Obstetrics & Gynecology
DX: O36.62X0 Maternal care for excessive fetal growth, second trimester, not applicable or unspecified (principal); Z3A.19 19 weeks gestation of pregnancy
CPT/HCPCS: 76811

== ENCOUNTER → 2021-02-17 | Outpatient (CLI) | payer MEDICAID ==
[2021-02-17 16:29] LABS: HCT 32.9 % (37.2-46.3); HGB 10.6 g/dL (12.0-15.0); MCH 30.1 pg (27.0-32.0); MCHC 32.2 g/dL (32.0-37.0); MCV 93.5 fL (80.0-97.0); Mean Platelet Volume 9.6 fL (9.5-12.2); Platelet Count 218 X 10*3/uL (140-440); RBC 3.52 X 10*6/uL (4.10-5.20); WBC 11.99 X 10*3/uL (4.50-10.00)
== END | disposition home or self-care (01) ==
LOC: LABWHC1 07:44
PROVIDERS: ATTEND Obstetrics & Gynecology
DX: Z34.82 Encounter for supervision of other normal pregnancy, second trimester (principal); E55.9 Vitamin D deficiency, unspecified; Z3A.00 Weeks of gestation of pregnancy not specified
CPT/HCPCS: 36415; 82950; 85027; 86850

== ENCOUNTER → 2021-02-21 | Outpatient (CLI) | payer MEDICAID ==
[2021-02-21 13:09] LABS: Glucose 3 Hour, Gest 143 mg/dL
== END | disposition home or self-care (01) ==
LOC: LABWHC1 08:09
PROVIDERS: ATTEND Obstetrics & Gynecology
DX: E55.9 Vitamin D deficiency, unspecified (principal)
CPT/HCPCS: 36415; 82306; 82951; 82952

== ENCOUNTER → 2021-02-28 | Outpatient (CLI) | payer MEDICAID ==
--- NOTE | 2021-02-28 16:17 | US ---
EXAMINATION TYPE: US OB >= 14 wk fetus DATE OF EXAM: 02/28/2021 COMPARISON: None CLINICAL HISTORY: E03.9 HYPOTHYROIDISM, newly diagnosed gestational diabetic, TECHNIQUE: OBTA GESTATIONAL AGE / DATING Physician Established: (27 weeks/3 days) EDC: 05/27/2021 Dates by LMP: (28 weeks/2 days) EDC: 05/21/2021 Dates by First Scan: (27 weeks/3 days) EDC: 05/27/2021 Dates by Current Scan: (26 weeks/6 days) EDC: 05/31/2021 SURVEY IUP: Single PLACENTA: Anterior PREVIA: No Previa LINN: 21.5 cm Normal CERVICAL LENGTH (transabdominal: norm > 3.0cm): 5.2 cm BIOMETRY PRESENTATION: Vertex LIE: Longitudinal BPD: 7.0 cm 28 weeks / 2 days HC: 25.1 cm 27 weeks / 2 days AC: 24.3 cm 28 weeks / 4 days FL: 4.8 cm 26 weeks / 1 days ESTIMATED WEIGHT IN GRAMS: 1100 grams ESTIMATED WEIGHT IN LBS/OZ: 2 lbs. 7 oz. WEIGHT PERCENTAGE BASED ON ESTABLISHED DATES: 44.5% HC/AC: 1.0 low end of normal FL/AC: 19.8 low end of normal HEART RATE: 140 bpm RHYTHM: Normal There are some regions which are out of proportion 4 standard deviation. This includes: Femur length to biparietal diameter which is low at 68.41. Normal 71.0-87.0. Head circumference to abdominal circumference measuring 1.03, normal 1.05-1.22. Femur length to abdominal circumference of 19.75, normal 20.0-24.0 IMPRESSION: 1. Single intrauterine gestation estimated at 26 weeks 6 days gestation based on current ultrasound m easurements. Cardiac activity measures 140 bpm. 2. There are several ratios which are out of the normal ranges. Closer monitoring may be warranted.
== END | disposition home or self-care (01) ==
LOC: RADUSWWP 13:36
PROVIDERS: ATTEND Obstetrics & Gynecology
DX: O99.282 Endocrine, nutritional and metabolic diseases complicating pregnancy, second trimester (principal); Z3A.26 26 weeks gestation of pregnancy
CPT/HCPCS: 76805

== ENCOUNTER 2021-04-03 14:06 | Outpatient (CLI) | payer MEDICAID ==
[2021-04-03 15:12] VITALS: BP 128/70; PULSE 85; RESP 16; TEMP 97.3
--- NOTE | 2021-04-07 12:51 | P.MSEPDOC ---
Presenting Problems - Arrival Data Date of Arrival on Unit: 04/03/21 Time of Arrival on Unit: 14:06 Mode of Transport: Ambulatory - Complaint OB-Reason for Admission/Chief Complaint: NST Medical History - Information : 3 Para: 2 Term: 1 : 0 Abortions: Spontaneous or Elective: 1 Number of Living Children: 1 - Gestational Age Gestational Age by CHER (wks/days): 32 Weeks and 2 Days - History Complications: GDM, Prior Comment: insulin dependent Review of Systems - Review of Systems Constitutional: No problems Breast: No problems ENT: No problems Cardiovascular: No problems Respiratory: No problems Gastrointestinal: No problems Genitourinary: No problems Musculoskeletal: No problems Neurological: No problems Skin: No problems Vital Signs - Temperature Temperature: 97.3 F Temperature Source: Temporal Artery Scan - Pulse Brachial Pulse Rate: 85 Pulse Assessment Method: Automatic Cuff - Respirations Respiratory Rate: 16 Oxygen Delivery Method: Room Air O2 Sat by Pulse Oximetry: 99 - Blood Pressure Right Arm Blood Pressure: 128/70 Blood Pressure Mean: 89 Blood Pressure Source: Automatic Cuff Medical Screen Scoring - Assessment - Baby A Baseline FHR: 130 Heart Rate - NICHD Category: Category I (Normal) NST: Reactive Physician Notification - Physician Notified Physician Notified Date: 04/03/21 Physician Notified Time: 14:55 Physician: Rober Recinos New Order Received: Yes - Notification Comment Comment: discharge with instruction Maternal Triage Index - Maternal Triage Index Presenting for scheduled procedure w/no complaint: Yes - Scheduled/Requesting Priority 5 Scheduled/Requesting Priority 5: No Disposition - Disposition OB Disposition: Triage, Discharge to home, Written follow up instructions reviewed Discharge Date: 04/03/21 Discharge Time: 14:56 I agree with the RN Medical Screening Exam: Yes Case reviewed; plan agreed upon as documented in EMR&OBIX.: Yes Diagnosis: GESTATIONAL DIABETES IN THE PUERPERIUM, DIET CONTROLLED
== END 2021-04-03 14:56 | disposition home or self-care (01) ==
LOC: FBPOP 14:06
PROVIDERS: ATTEND Obstetrics & Gynecology
DX: O24.430 Gestational diabetes mellitus in the puerperium, diet controlled (principal); Z3A.32 32 weeks gestation of pregnancy
CPT/HCPCS: 59025

== ENCOUNTER → 2021-04-03 | Outpatient (CLI) | payer MEDICAID ==
--- NOTE | 2021-04-03 15:59 | US ---
EXAMINATION TYPE: US OB >= 14 wk fetus DATE OF EXAM: 04/03/2021 COMPARISON: 02/28/2021 CLINICAL HISTORY: 30-year-old female E03.9 Hypothyroidism, unspecified TECHNIQUE: Transabdominal (TA) FINDINGS: GESTATIONAL AGE / DATING Physician Established: 32weeks/2 days EDC: 05/27/2021 Dates by LMP: (33weeks/0 days) EDC: 05/21/2021 Dates by First Scan: (32weeks/2 days) EDC: 05/27/2021 Dates by Current Scan: (31weeks/4 days) (1 day less growth than expected compared to 02/28/2021) EDC: 06/01/2021 SURVEY IUP: Single PLACENTA: Anterior PREVIA: No Previa LINN: 9.6m Normal CERVICAL LENGTH (transabdominal: norm > 3.0cm): 4.0 (Supplemental transvaginal imaging performed to verify cervical length.) BIOMETRY PRESENTATION: Vertex LIE: Longitudinal BPD: 8.2m 33eeks / 0 days HC: 29.8 33weeks / 0 days AC: 28.5 32weeks / 4 days FL: 5.9m 30weeks / 5 days ESTIMATED WEIGHT IN GRAMS: 1891ams ESTIMATED WEIGHT IN LBS/OZ: 4 lbs. 3 oz. WEIGHT PERCENTAGE BASED ON ESTABLISHED DATES: 31.7% (versus 44.5%, previously) HC/AC: 1.1Normal FL/AC: 20.6Normal HEART RATE: 135pm RHYTHM: Normal Staking Technician notes: Normal IUP measuring 31w4d with FHR of 135bmp. IMPRESSION: 1. Single live intrauterine with established gestational age of 32 weeks 2 days by previous dating scan. Current ultrasound biometry is concordant (31 weeks 4 days) with 1 day less growth than expected compared to 02/28/2021. 2. Note EFW % 31.7 versus 44.5, previously.
== END | disposition home or self-care (01) ==
LOC: RADUSWWP 14:56
PROVIDERS: ATTEND Obstetrics & Gynecology
DX: O99.282 Endocrine, nutritional and metabolic diseases complicating pregnancy, second trimester (principal); Z3A.16 16 weeks gestation of pregnancy
CPT/HCPCS: 76805

== ENCOUNTER 2021-04-09 20:05 | Outpatient (CLI) | payer MEDICAID ==
[2021-04-09 21:01] VITALS: BP 130/71; PULSE 97; RESP 16; TEMP 98.3
--- NOTE | 2021-04-15 17:19 | P.MSEPDOC ---
Presenting Problems - Arrival Data Date of Arrival on Unit: 04/09/21 Time of Arrival on Unit: 20:05 Mode of Transport: Ambulatory - Complaint OB-Reason for Admission/Chief Complaint: NST Comment: pt. has an order from office for biweekly NST Medical History - Information : 3 Para: 1 Term: 0 : 1 Abortions: Spontaneous or Elective: 1 Number of Living Children: 1 - Gestational Age Gestational Age by CHER (wks/days): 33 Weeks and 1 Days - History Complications: GDM, Prior Review of Systems - Review of Systems Constitutional: No problems Breast: No problems ENT: No problems Cardiovascular: No problems Respiratory: No problems Gastrointestinal: No problems Genitourinary: No problems Musculoskeletal: No problems Neurological: No problems Skin: No problems Vital Signs - Temperature Temperature: 98.3 F Temperature Source: Oral - Pulse Pulse Oximetery Pulse Rate: 97 Pulse Assessment Method: Automatic Cuff - Respirations Respiratory Rate: 16 Oxygen Delivery Method: Room Air - Blood Pressure Right Arm Blood Pressure: 130/71 Blood Pressure Mean: 90 Blood Pressure Source: Automatic Cuff Medical Screen Scoring - Cervical Exam Membranes: Intact - Assessment - Baby A Baseline FHR: 135 Heart Rate - NICHD Category: Category I (Normal) NST: Reactive Physician Notification - Physician Notified Physician Notified Date: 04/09/21 Physician Notified Time: 20:34 Physician: Olga Lidia Villatoro Order Received: Yes - Notification Comment Comment: order to discharge patient home Maternal Triage Index - Maternal Triage Index Presenting for scheduled procedure w/no complaint: No - Stat/Priority 1 Stat Priority 1: No - Urgent/Priority 2 Urgent Priority 2: No - Prompt/Priority 3 Prompt Priority 3: No - Non-Urgent/Priority 4 Non-Urgent Priority 4: No - Scheduled/Requesting Priority 5 Scheduled/Requesting Priority 5: Yes Criteria Met for Priority 5: patient here for a biweekly NST, Reactive NST Disposition - Disposition OB Disposition: Discharge to home Discharge Date: 04/09/21 Discharge Time: 20:40 I agree with the RN Medical Screening Exam: Yes Case reviewed; plan agreed upon as documented in EMR&OBIX.: Yes Diagnosis: ABNORMAL FINDINGS ON SCREENING
== END 2021-04-09 20:40 | disposition home or self-care (01) ==
LOC: FBPOP 20:05
PROVIDERS: ATTEND Obstetrics & Gynecology
DX: P09 Abnormal findings on neonatal screening (principal)
CPT/HCPCS: 59025

== ENCOUNTER 2021-04-15 09:24 | Outpatient (CLI) | payer MEDICAID ==
[2021-04-15 10:01] VITALS: BP 136/80; PULSE 106; RESP 16; TEMP 97.5
--- NOTE | 2021-04-16 19:05 | P.MSEPDOC ---
Presenting Problems - Arrival Data Date of Arrival on Unit: 04/15/21 Time of Arrival on Unit: 09:24 Mode of Transport: Ambulatory - Complaint OB-Reason for Admission/Chief Complaint: NST Medical History - Information : 3 Para: 1 Term: 1 : 0 Abortions: Spontaneous or Elective: 1 Number of Living Children: 1 - Gestational Age Gestational Age by CHER (wks/days): 34 Weeks and 0 Days - History Complications: Prior Review of Systems - Review of Systems Constitutional: No problems Breast: No problems ENT: No problems Cardiovascular: No problems Respiratory: No problems Gastrointestinal: No problems Genitourinary: No problems Musculoskeletal: No problems Neurological: No problems Skin: No problems Vital Signs - Temperature Temperature: 97.5 F Temperature Source: Temporal Artery Scan - Pulse Pulse Oximetery Pulse Rate: 106 Pulse Assessment Method: Pulse Oximetry - Respirations Respiratory Rate: 16 Oxygen Delivery Method: Room Air O2 Sat by Pulse Oximetry: 97 - Blood Pressure Right Arm Blood Pressure: 136/80 Blood Pressure Mean: 98 Blood Pressure Source: Automatic Cuff Medical Screen Scoring - Assessment - Baby A Baseline FHR: 140 Heart Rate - NICHD Category: Category I (Normal) NST: Reactive Physician Notification - Physician Notified Physician Notified Date: 04/15/21 Physician Notified Time: 09:52 Physician: James Lopez Order Received: Yes - Notification Comment Comment: Dr. Lopez called at office, report given on maternal and status, pt. here with orders for an NST because of GDM. NST is reactive and pt reports good . movement. Orders to discharge pt home Maternal Triage Index - Maternal Triage Index Presenting for scheduled procedure w/no complaint: Yes - Scheduled/Requesting Priority 5 Scheduled/Requesting Priority 5: Yes Criteria Met for Priority 5: NST for GDM with orders Disposition - Disposition OB Disposition: Discharge to home Discharge Date: 04/15/21 Discharge Time: 09:55 I agree with the RN Medical Screening Exam: Yes Case reviewed; plan agreed upon as documented in EMR&OBIX.: Yes Diagnosis: GESTATIONAL DIABETES IN , INSULIN CONTROLLED
== END 2021-04-15 09:55 | disposition home or self-care (01) ==
LOC: FBPOP 09:24
PROVIDERS: ATTEND Obstetrics & Gynecology
DX: Z53.9 Procedure and treatment not carried out, unspecified reason (principal)

== ENCOUNTER → 2021-04-15 | Outpatient (CLI) | payer MEDICAID ==
[2021-04-15 16:32] LABS: HCT 36.5 % (37.2-46.3); HGB 12.2 g/dL (12.0-15.0); MCH 31.5 pg (27.0-32.0); MCHC 33.4 g/dL (32.0-37.0); MCV 94.3 fL (80.0-97.0); Mean Platelet Volume 9.7 fL (9.5-12.2); Platelet Count 214 X 10*3/uL (140-440); RBC 3.87 X 10*6/uL (4.10-5.20); RDW 16.5 % (11.5-14.5); WBC 10.11 X 10*3/uL (4.50-10.00)
[2021-04-16 23:10] LABS: T4, Free (Free Thyroxine) 0.87 ng/dL (0.800-1.800)
== END | disposition home or self-care (01) ==
LOC: LABWHC1 10:05
PROVIDERS: ATTEND Internal Medicine
DX: Z34.83 Encounter for supervision of other normal pregnancy, third trimester (principal); E03.9 Hypothyroidism, unspecified
CPT/HCPCS: 36415; 84439; 84443; 85027

== ENCOUNTER 2021-04-18 07:51 | Outpatient (CLI) | payer MEDICAID ==
[2021-04-18 08:35] VITALS: BP 131/65; PULSE 95; RESP 16; TEMP 97.5
--- NOTE | 2021-04-21 13:10 | P.MSEPDOC ---
Presenting Problems - Arrival Data Date of Arrival on Unit: 04/18/21 Time of Arrival on Unit: 07:51 Mode of Transport: Ambulatory - Complaint OB-Reason for Admission/Chief Complaint: NST Comment: arrive with script. patient can be d/c if reactive NST Medical History - Information : 3 Para: 1 Term: 1 : 0 Abortions: Spontaneous or Elective: 1 Number of Living Children: 1 - Gestational Age Gestational Age by CHER (wks/days): 34 Weeks and 3 Days - History Complications: GDM Review of Systems - Review of Systems Constitutional: No problems Breast: No problems ENT: No problems Cardiovascular: No problems Respiratory: No problems Gastrointestinal: No problems Genitourinary: No problems Musculoskeletal: No problems Neurological: No problems Skin: No problems Vital Signs - Temperature Temperature: 97.5 F Temperature Source: Temporal Artery Scan - Pulse Pulse Oximetery Pulse Rate: 95 Pulse Assessment Method: Pulse Oximetry - Respirations Respiratory Rate: 16 Oxygen Delivery Method: Room Air - Blood Pressure Right Arm Blood Pressure: 131/65 Blood Pressure Mean: 87 Blood Pressure Source: Automatic Cuff Medical Screen Scoring - Assessment - Baby A Baseline FHR: 135 Heart Rate - NICHD Category: Category I (Normal) NST: Reactive Physician Notification - Physician Notified Physician Notified Date: 04/18/21 - Notification Comment Comment: pt arrived with script for biweekly NST, discharge home if reactive Maternal Triage Index - Maternal Triage Index Presenting for scheduled procedure w/no complaint: Yes - Scheduled/Requesting Priority 5 Scheduled/Requesting Priority 5: Yes Criteria Met for Priority 5: NST Disposition - Disposition OB Disposition: Discharge to home, Written follow up instructions reviewed Discharge Date: 04/18/21 Discharge Time: 08:26 I agree with the RN Medical Screening Exam: Yes Case reviewed; plan agreed upon as documented in EMR&OBIX.: Yes Diagnosis: GESTATIONAL DIABETES MELLITUS IN , UNSP CONTROL
== END 2021-04-18 08:26 | disposition home or self-care (01) ==
LOC: FBPOP 07:51
PROVIDERS: ATTEND Obstetrics & Gynecology
DX: O24.419 Gestational diabetes mellitus in pregnancy, unspecified control (principal); Z3A.34 34 weeks gestation of pregnancy
CPT/HCPCS: 59025

== ENCOUNTER 2021-04-21 07:59 | Outpatient (CLI) | payer MEDICAID ==
[2021-04-21 09:20] VITALS: BP 126/67; PULSE 92; RESP 18; TEMP 98.5
--- NOTE | 2021-04-21 13:09 | P.MSEPDOC ---
Presenting Problems - Arrival Data Date of Arrival on Unit: 04/21/21 Time of Arrival on Unit: 08:08 Mode of Transport: Ambulatory - Complaint OB-Reason for Admission/Chief Complaint: NST Comment: Pt here for biweekly NST- Gestational DM Medical History - Information : 3 Para: 1 - Gestational Age Gestational Age by CHER (wks/days): 34 Weeks and 6 Days - History Complications: GDM Review of Systems - Review of Systems Constitutional: No problems Breast: No problems ENT: No problems Cardiovascular: No problems Respiratory: No problems Gastrointestinal: No problems Genitourinary: No problems Musculoskeletal: No problems Neurological: No problems Skin: No problems Vital Signs - Temperature Temperature: 98.5 F - Pulse Pulse Oximetery Pulse Rate: 92 Pulse Assessment Method: Automatic Cuff - Respirations Respiratory Rate: 18 Oxygen Delivery Method: Room Air - Blood Pressure Right Arm Blood Pressure: 126/67 Blood Pressure Mean: 86 Blood Pressure Source: Automatic Cuff Medical Screen Scoring - Assessment - Baby A Heart Rate - NICHD Category: Category I (Normal) NST: Reactive Physician Notification - Notification Comment Comment: Ok to discharge home if NST reactive Maternal Triage Index - Maternal Triage Index Presenting for scheduled procedure w/no complaint: Yes - Scheduled/Requesting Priority 5 Scheduled/Requesting Priority 5: Yes Criteria Met for Priority 5: NST Disposition - Disposition OB Disposition: Discharge to home, Written follow up instructions reviewed Discharge Date: 04/21/21 Discharge Time: 08:50 I agree with the RN Medical Screening Exam: Yes Case reviewed; plan agreed upon as documented in EMR&OBIX.: Yes Diagnosis: GESTATIONAL DIABETES MELLITUS IN , UNSP CONTROL
== END 2021-04-21 08:50 | disposition home or self-care (01) ==
LOC: FBPOP 07:59
PROVIDERS: ATTEND Obstetrics & Gynecology
DX: O24.419 Gestational diabetes mellitus in pregnancy, unspecified control (principal); Z3A.34 34 weeks gestation of pregnancy
CPT/HCPCS: 59025

== ENCOUNTER 2021-04-24 09:41 | Outpatient (CLI) | payer MEDICAID ==
--- NOTE | 2021-04-27 05:32 | P.MSEPDOC ---
Presenting Problems - Arrival Data Date of Arrival on Unit: 04/24/21 Time of Arrival on Unit: 09:41 Mode of Transport: Ambulatory - Complaint OB-Reason for Admission/Chief Complaint: NST Medical History - Gestational Age Gestational Age by CHER (wks/days): 35 Weeks and 2 Days - History Complications: GDM Review of Systems - Review of Systems Constitutional: No problems Breast: No problems ENT: No problems Cardiovascular: No problems Respiratory: No problems Gastrointestinal: No problems Genitourinary: No problems Musculoskeletal: No problems Neurological: No problems Skin: No problems Physician Notification - Notification Comment Comment: pt here for 2 times a week nst due to GDM insulin controlled, one variable, Dr. Recinos notified, discharged home Maternal Triage Index - Maternal Triage Index Presenting for scheduled procedure w/no complaint: Yes - Scheduled/Requesting Priority 5 Scheduled/Requesting Priority 5: No Disposition - Disposition OB Disposition: Triage, Discharge to home Discharge Date: 04/24/21 Discharge Time: 10:50 I agree with the RN Medical Screening Exam: Yes Case reviewed; plan agreed upon as documented in EMR&OBIX.: Yes Diagnosis: GESTATIONAL DIABETES MELLITUS IN , DIET CONTROLLED
== END 2021-04-24 10:50 | disposition home or self-care (01) ==
LOC: FBPOP 09:41
PROVIDERS: ATTEND Obstetrics & Gynecology
DX: O24.420 Gestational diabetes mellitus in childbirth, diet controlled (principal); Z3A.35 35 weeks gestation of pregnancy
CPT/HCPCS: 59025

== ENCOUNTER 2021-04-28 07:53 | Outpatient (CLI) | payer MEDICAID ==
[2021-04-28 08:59] VITALS: BP 131/81; PULSE 99; RESP 16; TEMP 97.7
--- NOTE | 2021-04-29 06:30 | P.MSEPDOC ---
Presenting Problems - Arrival Data Date of Arrival on Unit: 04/28/21 Time of Arrival on Unit: 07:53 Mode of Transport: Ambulatory - Complaint OB-Reason for Admission/Chief Complaint: NST Comment: Patient presents to triage with an order from Dr. Recinos for an NST Medical History - Information : 3 Para: 1 Term: 1 : 0 Abortions: Spontaneous or Elective: 0 Number of Living Children: 1 - Gestational Age Gestational Age by CHER (wks/days): 35 Weeks and 6 Days - History Complications: GDM Comment: Insulin controlled Review of Systems - Review of Systems Constitutional: No problems Breast: No problems ENT: No problems Cardiovascular: No problems Respiratory: No problems Gastrointestinal: No problems Genitourinary: No problems Musculoskeletal: No problems Neurological: No problems Skin: No problems Vital Signs - Temperature Temperature: 97.7 F Temperature Source: Temporal Artery Scan - Pulse Pulse Oximetery Pulse Rate: 99 Pulse Assessment Method: Auscultation - Respirations Respiratory Rate: 16 Oxygen Delivery Method: Room Air - Blood Pressure Sitting Blood Pressure: 131/81 Blood Pressure Mean: 97 Blood Pressure Source: Automatic Cuff Medical Screen Scoring - Assessment - Baby A Baseline FHR: 130 Heart Rate - NICHD Category: Category I (Normal) NST: Reactive Physician Notification - Physician Notified Physician: Rober Recinos New Order Received: No - Notification Comment Comment: On written order physician writes if Reactive okay to discharge patient home Maternal Triage Index - Maternal Triage Index Presenting for scheduled procedure w/no complaint: Yes - Scheduled/Requesting Priority 5 Scheduled/Requesting Priority 5: Yes Criteria Met for Priority 5: Presents for Scheduled NST Disposition - Disposition OB Disposition: Discharge to home, Written follow up instructions reviewed I agree with the RN Medical Screening Exam: Yes Case reviewed; plan agreed upon as documented in EMR&OBIX.: Yes Diagnosis: GESTATIONAL DIABETES IN , INSULIN CONTROLLED
== END 2021-04-28 08:51 | disposition home or self-care (01) ==
LOC: FBPOP 07:53
PROVIDERS: ATTEND Obstetrics & Gynecology
DX: O24.414 Gestational diabetes mellitus in pregnancy, insulin controlled (principal); Z3A.35 35 weeks gestation of pregnancy
CPT/HCPCS: 59025

== ENCOUNTER → 2021-04-28 | Outpatient (CLI) | payer MEDICAID ==
--- NOTE | 2021-04-28 17:06 | US ---
EXAMINATION TYPE: US OB >= 14 wk fetus DATE OF EXAM: 04/28/2021 COMPARISON: None CLINICAL HISTORY: E03.9 HYPOTHYROIDISM hypothyroidism TECHNIQUE: Transabdominal (TA) GESTATIONAL AGE / DATING Physician Established: (35 weeks/6 days) EDC: 05/27/21 Dates by LMP: (36 weeks/5 days) EDC: 05/21/21 Dates by First Scan: (35 weeks/6 days) EDC: 05/27/21 Dates by Current Scan: (36 weeks/3 days) EDC: 05/23/21 SURVEY IUP: Single PLACENTA: Anterior PREVIA: No Previa LINN: 10.4 cm Normal CERVICAL LENGTH (transabdominal: norm > 3.0cm): 3.4 cm BIOMETRY PRESENTATION: Vertex LIE: Longitudinal BPD: 9.0 cm 36 weeks / 3 days HC: 32.5 cm 36 weeks / 6 days AC: 32.5 cm 36 weeks / 4 days FL: 6.9 cm 35 weeks / 4 days ESTIMATED WEIGHT IN GRAMS: 2884 grams ESTIMATED WEIGHT IN LBS/OZ: 6 lbs. 6 oz. WEIGHT PERCENTAGE BASED ON ESTABLISHED DATES: 61% HC/AC: 1.00 Normal FL/AC: 21% Normal HEART RATE: 143 bpm RHYTHM: Normal IMPRESSION: Viable of 36 weeks 3 days with the heart rate of 145 bpm. Estimated weight 2884 g cor relate clinically.
== END | disposition home or self-care (01) ==
LOC: RADUSWWP 16:23
PROVIDERS: ATTEND Obstetrics & Gynecology
DX: O36.80X0 Pregnancy with inconclusive fetal viability, not applicable or unspecified (principal); Z3A.35 35 weeks gestation of pregnancy; E03.9 Hypothyroidism, unspecified
CPT/HCPCS: 76805

== ENCOUNTER 2021-05-01 09:55 | Outpatient (CLI) | payer MEDICAID ==
[2021-05-01 10:45] VITALS: BP 131/75; PULSE 103; RESP 16; TEMP 97.2
--- NOTE | 2021-05-02 06:59 | P.MSEPDOC ---
Presenting Problems - Arrival Data Date of Arrival on Unit: 05/01/21 Time of Arrival on Unit: 09:55 Mode of Transport: Ambulatory - Complaint OB-Reason for Admission/Chief Complaint: NST Comment: Patient presents to a triage for a scheduled NST Medical History - Information : 3 Para: 1 Term: 1 : 0 Abortions: Spontaneous or Elective: 1 Number of Living Children: 1 - Gestational Age Gestational Age by CHER (wks/days): 36 Weeks and 2 Days - History Complications: GDM Review of Systems - Review of Systems Constitutional: No problems Breast: No problems ENT: No problems Cardiovascular: No problems Respiratory: No problems Gastrointestinal: No problems Genitourinary: No problems Musculoskeletal: No problems Neurological: No problems Skin: No problems Vital Signs - Temperature Temperature: 97.2 F Temperature Source: Temporal Artery Scan - Pulse Pulse Oximetery Pulse Rate: 103 Pulse Assessment Method: Pulse Oximetry - Respirations Respiratory Rate: 16 Oxygen Delivery Method: Room Air O2 Sat by Pulse Oximetry: 98 - Blood Pressure Sitting Blood Pressure: 131/75 Blood Pressure Mean: 93 Blood Pressure Source: Automatic Cuff Medical Screen Scoring - Assessment - Baby A Baseline FHR: 135 Heart Rate - NICHD Category: Category I (Normal) Physician Notification - Physician Notified Physician Notified Date: 05/01/21 Physician Notified Time: 10:32 Physician: Rober Recinos Order Received: Yes - Notification Comment Comment: Discharge patient home with instructions Maternal Triage Index - Maternal Triage Index Presenting for scheduled procedure w/no complaint: Yes - Scheduled/Requesting Priority 5 Scheduled/Requesting Priority 5: Yes Criteria Met for Priority 5: Patient presents to triage for a scheduled NST with an Order per Dr. Recinos Disposition - Disposition OB Disposition: Discharge to home, Written follow up instructions reviewed Discharge Date: 05/01/21 Discharge Time: 10:32 I agree with the RN Medical Screening Exam: Yes Case reviewed; plan agreed upon as documented in EMR&OBIX.: Yes Diagnosis: GESTATIONAL DIABETES IN , INSULIN CONTROLLED
== END 2021-05-01 10:32 | disposition home or self-care (01) ==
LOC: FBPOP 09:55
PROVIDERS: ATTEND Obstetrics & Gynecology
DX: O24.414 Gestational diabetes mellitus in pregnancy, insulin controlled (principal); Z3A.36 36 weeks gestation of pregnancy
CPT/HCPCS: 59025

== ENCOUNTER 2021-05-06 07:45 | Outpatient (CLI) | payer MEDICAID ==
--- NOTE | 2021-05-07 13:17 | P.MSEPDOC ---
Presenting Problems - Arrival Data Date of Arrival on Unit: 05/06/21 Time of Arrival on Unit: 07:45 Mode of Transport: Ambulatory - Complaint OB-Reason for Admission/Chief Complaint: NST Comment: Patient has written order for biweekly NST. Medical History - Gestational Age Gestational Age by CHER (wks/days): 37 Weeks and 0 Days - History Complications: GDM, Prior Review of Systems - Review of Systems Constitutional: No problems Breast: No problems ENT: No problems Cardiovascular: No problems Respiratory: No problems Gastrointestinal: No problems Genitourinary: No problems Musculoskeletal: No problems Neurological: No problems Skin: No problems Medical Screen Scoring - Assessment - Baby A Baseline FHR: 135 Heart Rate - NICHD Category: Category I (Normal) NST: Reactive Physician Notification - Notification Comment Comment: Vital signs WNL, reactive NST, discharge per written order. Maternal Triage Index - Maternal Triage Index Presenting for scheduled procedure w/no complaint: No - Stat/Priority 1 Stat Priority 1: No - Urgent/Priority 2 Urgent Priority 2: No - Prompt/Priority 3 Prompt Priority 3: No - Non-Urgent/Priority 4 Non-Urgent Priority 4: No - Scheduled/Requesting Priority 5 Scheduled/Requesting Priority 5: Yes Criteria Met for Priority 5: Patient 37 weeks presents for biweekly NST per written order. Disposition - Disposition OB Disposition: Triage, Discharge to home, Written follow up instructions reviewed Discharge Date: 05/06/21 Discharge Time: 08:30 I agree with the RN Medical Screening Exam: Yes Case reviewed; plan agreed upon as documented in EMR&OBIX.: Yes Diagnosis: GESTATIONAL DIABETES IN , INSULIN CONTROLLED
== END 2021-05-06 08:30 | disposition home or self-care (01) ==
LOC: FBPOP 07:45
PROVIDERS: ATTEND Obstetrics & Gynecology
DX: O24.414 Gestational diabetes mellitus in pregnancy, insulin controlled (principal); Z3A.37 37 weeks gestation of pregnancy
CPT/HCPCS: 59025

== ENCOUNTER 2021-05-07 16:48 | Outpatient (CLI) | payer MEDICAID ==
[2021-05-07 17:45] LABS: Basophils % (A) 0 %; Eosinophils # (A) 0.1 k/uL (0-0.7); Eosinophils % (A) 1 %; HCT 40.3 % (34.0-46.0); HGB 13.5 gm/dL (11.4-16.0); Lymphocytes # (A) 1.6 k/uL (1.0-4.8); Lymphocytes % (A) 15 %; MCHC 33.4 g/dL (31.0-37.0); MCV 92.6 fL (80.0-100.0); Mean Platelet Volume 7.5; Monocytes # (A) 0.7 k/uL (0-1.0); Monocytes % (A) 6 %; Neutrophils # (A) 8.1 k/uL (1.3-7.7); Neutrophils % (A) 76 %; Platelet Count 193 k/uL (150-450); RBC 4.35 m/uL (3.80-5.40); RDW 15.6 % (11.5-15.5); WBC 10.8 k/uL (3.8-10.6)
[2021-05-07 17:54] LABS: ALT 35 U/L (4-34); AST 32 U/L (14-36); African American GFR (CKD) >90 (>60 ml/min/1.73 sqM); Blood Urea Nitrogen 6 mg/dL (7-17); LDH 431 U/L (313-618); Non-African American GFR(CKD) >90 (>60 ml/min/1.73 sqM); Uric Acid 4.3 mg/dL (3.7-7.4)
== END 2021-05-07 18:05 | disposition home or self-care (01) ==
LOC: FBPOP 16:48
PROVIDERS: ATTEND Obstetrics & Gynecology
DX: O13.9 Gestational [pregnancy-induced] hypertension without significant proteinuria, unspecified trimester (principal); Z3A.00 Weeks of gestation of pregnancy not specified
CPT/HCPCS: 59025; 82565; 83615; 84450; 84460; 84520; 84550; 85025

== ENCOUNTER 2021-05-13 08:01 | Inpatient (IN) | payer MEDICAID ==
[2021-05-13 09:00] LABS: Basophils % (A) 0 %; Eosinophils # (A) 0.1 k/uL (0-0.7); Eosinophils % (A) 1 %; HCT 38.2 % (34.0-46.0); HGB 13.1 gm/dL (11.4-16.0); Lymphocytes # (A) 1.7 k/uL (1.0-4.8); Lymphocytes % (A) 17 %; MCH 31.5 pg (25.0-35.0); MCHC 34.1 g/dL (31.0-37.0); MCV 92.1 fL (80.0-100.0); Mean Platelet Volume 7.2; Monocytes # (A) 0.5 k/uL (0-1.0); Monocytes % (A) 5 %; Neutrophils # (A) 7.7 k/uL (1.3-7.7); Neutrophils % (A) 75 %; Platelet Count 200 k/uL (150-450); RBC 4.15 m/uL (3.80-5.40); RDW 15.4 % (11.5-15.5); WBC 10.3 k/uL (3.8-10.6)
[2021-05-13 09:25] LABS: ALT 32 U/L (4-34); AST 34 U/L (14-36); African American GFR (CKD) >90 (>60 ml/min/1.73 sqM); Blood Urea Nitrogen 9 mg/dL (7-17); LDH 437 U/L (313-618); Non-African American GFR(CKD) >90 (>60 ml/min/1.73 sqM); Uric Acid 4.6 mg/dL (3.7-7.4)
[2021-05-13 09:48] LABS: Creatinine,Urine Random 113.1 mg/dL; Protein/Creatinine Ratio,Urine 0.239
[2021-05-13 09:49] LABS: Appearance,Urine Cloudy (Clear); Bacteria,Urine Few /hpf; Bilirubin,Urine Negative (Negative); Blood,Urine Large (Negative); Calcium Oxalate Crystals,Urine Few /hpf; Color,Urine Yellow; Glucose,Urine (UA) Negative (Negative); Ketones,Urine Negative (Negative); Leukocyte Esterase,Urine Trace (Negative); Mucus,Urine Few /hpf; Nitrite,Urine Negative (Negative); PH, Urine 5.5 (5.0-8.0); Protein,Urine 1+ (Negative); RBC,Urine 178 /hpf (0-5); Specific Gravity,Urine 1.021 (1.001-1.035); Squamous Epithelial Cell,Urine 8 /hpf (0-4); Urobilinogen,Urine <2.0 mg/dL (<2.0); WBC,Urine 5 /hpf (0-5)
[2021-05-13] MEDS ORDERED: LACTATED RINGERS 1,000 ML IV ONE (10:17)
[2021-05-13] MEDS ORDERED: CITRIC ACID-SODIUM CITRATE 15 ML CUP PO ONE (10:17)
--- NOTE | 2021-05-13 10:33 | P.HPOB ---
History of Present Illness H&P Date: 05/13/21 Chief Complaint: Hypertension, previous section This patient is a pleasant 30-year-old 3 para 1 female estimated date of confinement 05/27/2021 estimated gestational age 38 weeks who presents to labor and delivery for a nonstress tests secondary to insulin-dependent gestational diabetes and history of gestational hypertension. Patient did have an elevated blood pressure at the office last week of 140/80 and preeclampsia labs were done which were normal with one liver test mildly elevated. Patient's been followed closely with twice weekly nonstress tests and blood pressures. Patient presented today in her initial blood pressure was elevated 143 over 80s. Repeat labs were fine. I did discuss management with the patient she understands current recommendations are to proceed with delivery given the fact that she's had 2 elevated blood pressures more than 4 hours apart. is also been complicated by insulin-dependent gestational diabetes with good control per Dr. Tejeda. Patient a previous section for cephalopelvic dystocia and initially wanted to however does have unfavorable/on dilated cervix today. heart tones are category 1. Plan is to proceed with delivery by repeat section at this time. Review of Systems Constitutional: Reports as per HPI Genitourinary: Reports Menstruation: Reports amenorrhea Past Medical History Past Medical History: Thyroid Disorder Additional Past Medical History / Comment(s): Patient has a history of hy pothyroidism and renal calculi. Insulin-dependent gestational diabetes. Patient a previous 37 week delivery for gestational hypertension by section. History of Any Multi-Drug Resistant Organisms: None Reported Past Surgical History: Section, Orthopedic Surgery Additional Past Surgical History / Comment(s): left foot Past Anesthesia/Blood Transfusion Reactions: No Reported Reaction Past Psychological History: No Psychological Hx Reported Smoking Status: Never smoker Past Alcohol Use History: None Reported Past Drug Use History: None Reported - Past Family History Father Family Medical History: Hypertension Medications and Allergies Home Medications Medication Instructions Recorded Confirmed Type Folic Acid 0.4 mg PO DAILY 02/14/18 05/13/21 History Pnv,Calcium 72/Iron/Folic Acid 1 tab PO DAILY 02/14/18 05/13/21 History [ Plus Tablet] INSULIN LISPRO (humaLOG) [humaLOG] 4 units SQ AC-LUNCH 04/03/21 05/13/21 History INSULIN LISPRO (humaLOG) [humaLOG] 4 units SQ AC-SUPPER 04/03/21 05/13/21 History INSULIN LISPRO (humaLOG) [humaLOG] 6 units SQ AC-BRKFST 04/03/21 05/13/21 History Docusate [Colace] 3 tab PO DAILY 04/09/21 05/13/21 History Psyllium Husk [Metamucil] 5 tab PO DAILY 04/09/21 05/13/21 History Aspirin 81 mg PO DAILY 04/15/21 05/13/21 History Cholecalciferol [Vitamin D3 (10 10 mcg PO DAILY 04/15/21 05/13/21 History Mcg = 400 Iu)] Iron 45 mg PO DAILY 04/15/21 05/13/21 History Levothyroxine Sodium [Tirosint-Kristyn] 100 tab PO DAILY 04/21/21 05/13/21 History Allergies Allergy/AdvReac Type Severity Reaction Status Date / Time bacitracin AdvReac Rash/Hives Verified 05/07/21 16:56 Exam Intake and Output 05/12/21 05/13/21 05/13/21 22:59 06:59 14:59 Other: Weight 78.018 kg - OBG Physical Exam Abdomen: bowel sounds normal, no diffuse tenderness, no bruit present, no guarding noted, no hepatomegaly, no splenomegaly, no mass Vulva: both: normal Vagina: normal moisture, no discharge Cervix: no lesion (Cervix is closed and thick), no discharge Uterus: enlarged (Fundal height 38 cm) Results blood work shows she is A negative, rubella immune, RPR nonreactive, hepatitis B negative, HIV was nonreactive, Glucola was 164 with an abnormal 3 hour gtt., ultrasounds have been normal. Group B strep was negative. Patient received RhoGAM on March 11. Result Diagrams: 05/13/21 08:43 05/13/21 08:43 Abnormal Lab Results - Last 24 Hours (Table) 05/13/21 05/13/21 Range/Units 08:30 08:43 Creatinine 0.45 L (0.52-1.04) mg/dL Urine Appearance Cloudy H (Clear) Urine Protein 1+ H (Negative) Urine Blood Large H (Negative) Ur Leukocyte Esterase Trace H (Negative) Urine RBC 178 H (0-5) /hpf Ur Squamous Epith Cells 8 H (0-4) /hpf Calcium Oxalate Crystal Few H (None) /hpf Urine Bacteria Few H (None) /hpf Urine Mucus Few H (None) /hpf Assessment and Plan Assessment: This is a pleasant 30-year-old 3 para 1 female 38-0/7 weeks gestation with diagnostic criteria consistent with gestational hypertension. Per recommendations we'll proceed with delivery at this time. Patient's cervix is unfavorable and therefore induction is not possible and therefore going to proceed with a repeat section. I did discuss this with the patient and her and they understand the clinical findings and indications for delivery and wish to proceed. She understands the risk of surgery including risks of infection, bleeding, possible injury to bowel, bladder, vessels, and/or other organs. All the patient's questions were answered and a written consent obtained. (1) 38 weeks gestation of Current Visit: Yes Status: Acute Code(s): Z3A.38 - 38 WEEKS GESTATION OF SNOMED Code(s): 91869099 (2) Gestational diabetes mellitus Current Visit: Yes Status: Acute Code(s): O24.419 - GESTATIONAL DIABETES MELLITUS IN , UNSP CONTROL SNOMED Code(s): 93162527 (3) Gestational hypertension Current Visit: No Status: Acute Code(s): O13.9 - GESTATIONAL HTN W/O SIGNIFICANT PROTEINURIA, UNSP TRIMESTER SNOMED Code(s): 10745297 (4) Rh negative status during Current Visit: No Status: Chronic Code(s): O09.899 - SUPERVISION OF OTHER HIGH RISK PREGNANCIES, UNSP TRIMESTER; Z67.91 - UNSPECIFIED BLOOD TYPE, RH NEGATIVE SNOMED Code(s): 124737315
[2021-05-13 10:39] LABS: Glucose,Whole Blood 94 mg/dL (75-99)
[2021-05-13] MEDS: LACTATED RINGERS 1,000 ML IV SCH ×3 (10:41→21:04)
[2021-05-13] MEDS ORDERED: KETOROLAC 15 MG/ML 1 ML VIAL ONE (12:17)
[2021-05-13] MEDS ORDERED: NALBUPHINE 10 MG/ML (1 ML AMP) ONE (12:17)
[2021-05-13] MEDS ORDERED: ePHEDrine 50 MG/ML 1 ML AMP ONE (12:17)
[2021-05-13] MEDS ORDERED: ONDANSETRON 4 MG/2 ML VIAL ONE (12:17)
[2021-05-13] MEDS ORDERED: MORPHINE SULFATE (PF) 0.3 MG/0.3 ML SYR ONE (12:17)
[2021-05-13] MEDS ORDERED: NALBUPHINE 10 MG/ML (1 ML AMP) IV PRN (12:50)
[2021-05-13] MEDS ORDERED: HYDROmorphone 0.5 MG/0.5 ML SYRINGE IVP PRN (12:50)
[2021-05-13] MEDS ORDERED: ONDANSETRON 4 MG/2 ML VIAL IVP PRN (12:50)
[2021-05-13] MEDS ORDERED: diphenhydrAMINE 50 MG/ML 1 ML VIAL IVP PRN (12:50)
[2021-05-13] MEDS ORDERED: NALOXONE 0.4 MG/ML 1 ML VIAL IV PRN (12:50)
[2021-05-13] MEDS ORDERED: ZOLPIDEM 5 MG TAB PO PRN (13:07)
[2021-05-13] MEDS ORDERED: Rhogam IMMUNE GLOBULIN 1,500 UNIT/1 ML IM ONE (13:07)
[2021-05-13] MEDS ORDERED: OXYTOCIN 30 UNITS/500 ML NS 30 UNIT in SALINE 1 500ML.BAG IV SCH (13:15)
--- NOTE | 2021-05-13 13:19 | P.OP ---
Date of Procedure: 05/13/21 Preoperative Diagnosis: #1:38 0/7 week intrauterine . #2: Gestational hypertension. #3: Insulin-dependent gestational diabetes. #4: Previous section with unfavorable cervix. Postoperative Diagnosis: same Procedure(s) Performed: Repeat low transverse section Anesthesia: spinal Surgeon: Rober Recinos Rubber Heel And Sole Press Tender #1: Olga Lidia Villatoro Estimated Blood Loss (ml): 800 Pathology: other (placenta) Condition: stable Disposition: floor Indications for Procedure: please see dictated H&P for intimate details of this patient's admission. Brief summary this is a pleasant 30-year-old 3 para 1 female 38 0/7 weeks gestation who is admitted to labor and delivery for evaluation of gestational hypertension. Patient has had 2 elevated blood pressures over 4 hours apart and a history of gestational hypertension. Blood work at this time shows no evidence of preeclampsia. Patient's cervix is closed. Per current ACOG recommendations we've recommended she proceed with delivery for the diagnosis of gestational hypertension. Plan at this time was to proceed with repeat section due to the unfavorable cervix. Patient does understand the surgery and risks and risks of infection, bleeding, possible injury bowel, bladder, vessels, and/or other organs. All the patient's questions are answered and a written consent obtained. Operative Findings: this is a vigorous viable female infant Apgars were 9 and 9 delivery time was 1237 hrs. patient had a normal-appearing uterus, tubes, and ovaries. Description of Procedure: This patient is taken to the operating room where she is laid in the supine position. She already had a Grey catheter placed to straight drain in the room. Patient is then sat up and spinal anesthetic is administered without incident. With an adequate level of anesthesia she has abdominal prep and drape. Scalpels and taken in the previous Pfannenstiel incision is incised. A second scalpel is taken down to the fascia the fascia scored with a knife. Fascial incision extended bilaterally using the Fuller scissors. Fascia is then dissected off the rectus muscles sharply. Rectus muscles are the peritoneum identified and entered sharply. Peritoneal incision extended superior and inferior without difficulty. Bladder blade is then placed. Bladder peritoneum was taken sharply off the lower uterine segment with Metzenbaum scissors. Scalpels then taken and a low transverse uterine incision is then made. Using a hemostat I into the uterine cavity bluntly and there is loss of clear fluid. This incision is extended bluntly. Infant's head is then guided through the incision with fundal pressure delivered. Mouth and nares are bulb suctioned. There is no evidence of a nuchal cord. With gentle fundal pressure we then have deliver the rest of this infant's body. This is a vigorous viable female Apgars are 9 and 9 delivery time is 1237 hrs. After delivery of the infant, the umbilical cord is doubly clamped and cut. It appears to be trivascular. The placenta is then manually extracted intact. Uterus is then externalized and the uterine edges demarcated with Barnes clamps. Uterine cavity is explored appears to be clear of all debris. Uterine incision then closed in 0 Vicryl running locked fashion 2 layers. Excellent hemostasis is noted. The bladder peritoneum was then identified and closed using 3-0 Vicryl running fashion. Excess fluid is removed from the abdomen and pelvis. Uterus placed back into the abdomen. The uterus, tubes, and ovaries all appear normal for term gestation. With this done the parietal peritoneum was identified and the incision inspected once again appears to be hemostatic. The parietal peritoneum was then closed in 0 Vicryl running fashion. Rectus muscles reapproximated in 0 Vicryl interrupted fashion. Fascial incision is then closed using 0 PDS. Fascial incision appears to be intact and hemostatic. Subcutaneous tissues and closed using a 3-0 Vicryl. Skin is and closed using basilia. Sterile dressing is applied. All counts are correct 3. There are no complications. and mother then taken to the birthing suite in satisfactory condition.
[2021-05-13 13:25] LABS: Glucose,Whole Blood 81 mg/dL (75-99)
[2021-05-13 14:24] LABS: Glucose,Whole Blood 99 mg/dL (75-99)
[2021-05-13 15:25] LABS: Glucose,Whole Blood 94 mg/dL (75-99)
[2021-05-13 17:28] LABS: Glucose,Whole Blood 85 mg/dL (75-99)
[2021-05-13] MEDS: METOCLOPRAMIDE 5 MG/ML 2 ML VIAL IVP PRN (17:43)
[2021-05-14] MEDS: METOCLOPRAMIDE 5 MG/ML 2 ML VIAL IVP PRN (00:44)
[2021-05-14] MEDS: KETOROLAC 15 MG/ML 1 ML VIAL IVP SCH ×3 (01:48→13:57)
[2021-05-14] MEDS: LACTATED RINGERS 1,000 ML IV SCH (05:19)
--- NOTE | 2021-05-14 06:27 | P.PNOBGPC ---
Subjective - Subjective Patient reports: Reports appetite normal, Reports voiding normally, Reports pain well controlled, Reports ambulating normally : doing well Objective - Vital Signs Latest vital signs: Vital Signs Temp Pulse Resp BP Pulse Ox 05/14/21 05:00 16 98 05/14/21 04:00 97.9 F 76 16 112/68 98 05/14/21 03:00 16 05/14/21 01:00 16 96 05/14/21 00:00 97.8 F 78 16 111/66 96 05/13/21 23:00 16 05/13/21 21:00 18 98 05/13/21 20:00 97.6 F 81 16 120/66 97 05/13/21 19:00 16 05/13/21 17:00 16 97 05/13/21 15:15 97.4 F L 79 18 120/64 96 05/13/21 14:30 97.1 F L 74 18 139/71 96 05/13/21 14:00 75 126/65 05/13/21 13:45 96.5 F L 90 18 133/70 97 05/13/21 13:30 83 139/69 97 05/13/21 13:15 96.5 F L 102 H 18 131/60 96 05/13/21 13:00 96.4 F L 89 18 127/58 96 05/13/21 10:37 96.7 F L 100 18 143/81 98 Intake and Output 05/13/21 05/13/21 05/14/21 14:59 22:59 06:59 Output Total 600 100 600 Balance -600 -100 -600 Output: Urine 600 100 600 Uretheral (Grey) 300 Other: Weight 78.018 kg - Exam Lungs: bilateral: normal Chest: Normal S1, Normal S2 Extremities: Present: normal Abdomen: Present: normal appearance, soft. Absent: distention, tenderness Incision: Present: normal, dry, intact Uterus: Present: normal, firm - Labs Labs: Abnormal Lab Results - Last 24 Hours (Table) 05/13/21 05/13/21 Range/Units 08:30 08:43 Creatinine 0.45 L (0.52-1.04) mg/dL Urine Appearance Cloudy H (Clear) Urine Protein 1+ H (Negative) Urine Blood Large H (Negative) Ur Leukocyte Esterase Trace H (Negative) Urine RBC 178 H (0-5) /hpf Ur Squamous Epith Cells 8 H (0-4) /hpf Calcium Oxalate Crystal Few H (None) /hpf Urine Bacteria Few H (None) /hpf Urine Mucus Few H (None) /hpf Assessment and Plan Assessment: Post operative day #1. Patient was having a lot of nausea vomiting yesterday but this is resolved. Vital signs are stable she is afebrile. Uterus is firm nontender and her incision is intact and dry. Plan today is to encourage ambulation, encourage her to try to urinate, advanced to diet, and check a CBC. We will continue routine postoperative care. (1) 38 weeks gestation of Current Visit: Yes Status: Acute Code(s): Z3A.38 - 38 WEEKS GESTATION OF SNOMED Code(s): 41443135 (2) Gestational diabetes mellitus Current Visit: Yes Status: Acute Code(s): O24.419 - GESTATIONAL DIABETES MELLITUS IN , UNSP CONTROL SNOMED Code(s): 57671429 (3) Gestational hypertension Current Visit: No Status: Acute Code(s): O13.9 - GESTATIONAL HTN W/O SIGNIFICANT PROTEINURIA, UNSP TRIMESTER SNOMED Code(s): 08814880 (4) Rh negative status during Current Visit: No Status: Chronic Code(s): O09.899 - SUPERVISION OF OTHER HIGH RISK PREGNANCIES, UNSP TRIMESTER; Z67.91 - UNSPECIFIED BLOOD TYPE, RH NEGATIVE SNOMED Code(s): 138838689
[2021-05-14 07:52] LABS: Basophils % (A) 0 %; Eosinophils # (A) 0.1 k/uL (0-0.7); Eosinophils % (A) 0 %; HCT 36.6 % (34.0-46.0); HGB 12.3 gm/dL (11.4-16.0); Lymphocytes # (A) 1.6 k/uL (1.0-4.8); Lymphocytes % (A) 13 %; MCH 30.9 pg (25.0-35.0); MCHC 33.5 g/dL (31.0-37.0); MCV 92.2 fL (80.0-100.0); Mean Platelet Volume 7.8; Monocytes # (A) 0.6 k/uL (0-1.0); Monocytes % (A) 5 %; Neutrophils # (A) 10.5 k/uL (1.3-7.7); Neutrophils % (A) 82 %; Platelet Count 189 k/uL (150-450); RBC 3.97 m/uL (3.80-5.40); RDW 15.4 % (11.5-15.5); WBC 12.9 k/uL (3.8-10.6)
[2021-05-14] MEDS: SENNOSIDES-DOCUSATE SODIUM 1 EACH TAB PO PRN ×2 (08:07→19:58)
--- NOTE | 2021-05-14 09:25 | P.PN ---
Progress Note - Text Progress Note Date: 05/14/21 (700) Anesthesia Postop day 1 Subjective: Status Post section with Duramorph. Patient seen and examined. Doing well currently. Vomiting overnight. Mild pruritus.. VAS 0 out of 10. . Afebrile. Gross lower extremity strength intact. Without apparent anesthetic complications. Objective: Vital signs reviewed Heart: Regular Rate Lungs: Good chest excursion Abdomen: Appears nondistended Assessment: Status post with Duramorph postop day 1 Plan: Continue current care with your medical management.
[2021-05-14] MEDS: IBUPROFEN 600 MG TAB PO PRN ×2 (11:06→17:10)
[2021-05-14] MEDS: ACETAMINOPHEN TAB 500 MG TAB PO PRN ×2 (14:16→19:57)
[2021-05-15] MEDS: IBUPROFEN 600 MG TAB PO PRN ×3 (00:15→14:34)
[2021-05-15] MEDS: ACETAMINOPHEN TAB 500 MG TAB PO PRN ×2 (02:52→12:42)
--- NOTE | 2021-05-15 06:23 | P.PNOBGPC ---
Subjective - Subjective Patient reports: Reports appetite normal, Reports voiding normally, Reports pain well controlled, Reports ambulating normally : doing well Objective - Vital Signs Latest vital signs: Vital Signs Temp Pulse Resp BP Pulse Ox 05/15/21 00:00 98.3 F 81 16 143/61 96 05/14/21 16:00 98.6 F 75 16 127/73 96 05/14/21 12:00 98.5 F 69 16 114/75 98 05/14/21 08:00 97.3 F L 87 16 125/66 97 Intake and Output 05/14/21 05/14/21 05/15/21 14:59 22:59 06:59 Intake Total 600 Output Total 350 Balance 250 Intake: Oral 600 Output: Urine 350 Other: # Voids 1 2 - Exam Lungs: bilateral: normal Chest: Normal S1, Normal S2 Extremities: Present: normal Abdomen: Present: normal appearance, soft. Absent: distention, tenderness Incision: Present: normal, dry, intact Uterus: Present: normal, firm - Labs Labs: Abnormal Lab Results - Last 24 Hours (Table) 05/14/21 Range/Units 07:35 WBC 12.9 H (3.8-10.6) k/uL Neutrophils # 10.5 H (1.3-7.7) k/uL Assessment and Plan Assessment: Postoperative day #2. Patient is resting without complaints and wishes to go home. Vital signs are stable and she is afebrile. Uterus is firm nontender and her incision is intact and dry. Patient is ambulating, urinating and tolerating regular diet. My impression this is a normal postoperative course. Plan is to continue routine postoperative care discharge home later today. (1) 38 weeks gestation of Current Visit: Yes Status: Acute Code(s): Z3A.38 - 38 WEEKS GESTATION OF SNOMED Code(s): 96249664 (2) Gestational diabetes mellitus Current Visit: Yes Status: Acute Code(s): O24.419 - GESTATIONAL DIABETES MELLITUS IN , UNSP CONTROL SNOMED Code(s): 27121693 (3) Gestational hypertension Current Visit: No Status: Acute Code(s): O13.9 - GESTATIONAL HTN W/O SIGNIFICANT PROTEINURIA, UNSP TRIMESTER SNOMED Code(s): 36922648 (4) Rh negative status during Current Visit: No Status: Chronic Code(s): O09.899 - SUPERVISION OF OTHER HIGH RISK PREGNANCIES, UNSP TRIMESTER; Z67.91 - UNSPECIFIED BLOOD TYPE, RH NEGATIVE SNOMED Code(s): 038125022
--- NOTE | 2021-05-15 06:29 | P.DS ---
Providers Date of admission: 05/13/21 10:03 Expected date of discharge: 05/15/21 Attending physician: Rober Recinos Primary care physician: Stated None - Discharge Diagnosis(es) (1) 38 weeks gestation of Current Visit: Yes Status: Acute (2) Gestational diabetes mellitus Current Visit: Yes Status: Acute (3) Gestational hypertension Current Visit: No Status: Acute (4) Rh negative status during Current Visit: No Status: Chronic Hospital Course: Please see dictated H&P for intimate details of this patient's admission. Brief summary this is a pleasant 30-year-old 3 para 1 female 38 0/7 weeks gestation admitted to labor and delivery secondary to gestational hypertension. Patient undergoes a repeat section for viable female . Please see dictated operative note. Postoperative #2 patient's felt be stable for discharge home follow up with me in 1 week. Procedures: Repeat low transverse section Patient Condition at Discharge: Good Plan - Discharge Summary New Discharge Prescriptions: New Ibuprofen [Motrin] 600 mg PO Q6H PRN #30 tab PRN Reason: Pain oxyCODONE HCL [OxyIR] 5 mg PO Q4HR PRN #18 tab PRN Reason: Pain No Action Folic Acid 0.4 mg PO DAILY Pnv,Calcium 72/Iron/Folic Acid [ Plus Tablet] 1 tab PO DAILY INSULIN LISPRO (humaLOG) [humaLOG] 6 units SQ AC-BRKFST Psyllium Husk [Metamucil] 5 tab PO DAILY Aspirin 81 mg PO DAILY Iron 45 mg PO DAILY Levothyroxine Sodium [Tirosint-Kristyn] 100 tab PO DAILY INSULIN LISPRO (humaLOG) [humaLOG] 4 units SQ AC-LUNCH INSULIN LISPRO (humaLOG) [humaLOG] 4 units SQ AC-SUPPER Docusate [Colace] 3 tab PO DAILY Cholecalciferol [Vitamin D3 (10 Mcg = 400 Iu)] 10 mcg PO DAILY Discharge Medication List Folic Acid 0.4 mg PO DAILY 02/14/18 [History] Pnv,Calcium 72/Iron/Folic Acid [ Plus Tablet] 1 tab PO DAILY 02/14/18 [History] INSULIN LISPRO (humaLOG) [humaLOG] 4 units SQ AC-LUNCH 04/03/21 [History] INSULIN LISPRO (humaLOG) [humaLOG] 4 units SQ AC-SUPPER 04/03/21 [History] INSULIN LISPRO (humaLOG) [humaLOG] 6 units SQ AC-BRKFST 04/03/21 [History] Docusate [Colace] 3 tab PO DAILY 04/09/21 [History] Psyllium Husk [Metamucil] 5 tab PO DAILY 04/09/21 [History] Aspirin 81 mg PO DAILY 04/15/21 [History] Cholecalciferol [Vitamin D3 (10 Mcg = 400 Iu)] 10 mcg PO DAILY 04/15/21 [History] Iron 45 mg PO DAILY 04/15/21 [History] Levothyroxine Sodium [Tirosint-Kristyn] 100 tab PO DAILY 04/21/21 [History] Ibuprofen [Motrin] 600 mg PO Q6H PRN #30 tab 05/15/21 [Rx] oxyCODONE HCL [OxyIR] 5 mg PO Q4HR PRN #18 tab 05/15/21 [Rx] Follow up Appointment(s)/Referral(s): Rober Recinos MD [STAFF PHYSICIAN] - 06/23/21 11:15 am (Please see me for a postop appointment on 05-21-2021 @ 01:30 p.m.) Patient Instructions/Handouts: (DC) Activity/Diet/Wound Care/Special Instructions: No heavy lifting or strenuous activity for 6 weeks. No intercourse or anything per vagina for 6 weeks. Please call if any fever, chills, excessive vaginal bleeding, and/or abdominal pain. Discharge Disposition: HOME SELF-CARE
[2021-05-15] MEDS: SENNOSIDES-DOCUSATE SODIUM 1 EACH TAB PO PRN (07:55)
[2021-05-15 12:15] VITALS: BP 125/75; PULSE 61; RESP 20; TEMP 97.7
== END 2021-05-15 15:40 | disposition home or self-care (01) | DRG 788 ==
LOC: FBPOP 08:01 → 4FBP 10:03
PROVIDERS: ADMIT Obstetrics & Gynecology; ATTEND Obstetrics & Gynecology
PROC: 10D00Z1 Extraction of Products of Conception, Low, Open Approach (ICD-10-PCS; principal; 2021-05-13 12:30)
DX: O13.4 Gestational [pregnancy-induced] hypertension without significant proteinuria, complicating childbirth (principal); Z37.0 Single live birth; O34.211 Maternal care for low transverse scar from previous cesarean delivery; O26.893 Other specified pregnancy related conditions, third trimester; Z67.91 Unspecified blood type, Rh negative; Z3A.38 38 weeks gestation of pregnancy; O24.424 Gestational diabetes mellitus in childbirth, insulin controlled; O99.284 Endocrine, nutritional and metabolic diseases complicating childbirth; E03.9 Hypothyroidism, unspecified; L29.9 Pruritus, unspecified; O12.14 Gestational proteinuria, complicating childbirth; O66.9 Obstructed labor, unspecified; Z79.82 Long term (current) use of aspirin; Z82.49 Family history of ischemic heart disease and other diseases of the circulatory system; Z87.442 Personal history of urinary calculi
CPT/HCPCS: 59025; 81001; 82565; 82570; 83615; 84156; 84450; 84460; 84520; 84550; 85025; 86850; 86870; 86880; 86900; 86901; 88307; 99215

== ENCOUNTER → 2021-08-15 | Outpatient (CLI) | payer MEDICAID ==
[2021-08-15 18:05] LABS: Basophils # (A) 0.04 X 10*3/uL (0.00-0.10); Basophils % (A) 0.4 %; Eosinophils % (A) 2.2 %; HCT 41.8 % (37.2-46.3); HGB 14.1 g/dL (12.0-15.0); Lymphocytes # (A) 2.28 X 10*3/uL (0.90-5.00); Lymphocytes % (A) 25.1 %; MCH 30.3 pg (27.0-32.0); MCHC 33.7 g/dL (32.0-37.0); MCV 89.7 fL (80.0-97.0); Mean Platelet Volume 9.1 fL (9.5-12.2); Monocytes # (A) 0.71 X 10*3/uL (0.20-1.00); Monocytes % (A) 7.8 %; Neutrophils # (A) 5.85 X 10*3/uL (1.80-7.70); Neutrophils % (A) 64.3 %; Platelet Count 291 X 10*3/uL (140-440); RBC 4.66 X 10*6/uL (4.10-5.20); RDW 13.2 % (11.5-14.5)
[2021-08-15 18:27] LABS: African American GFR (CKD) 136.1 (60.0-200.0); Albumin 4.5 g/dL (3.8-4.9); Albumin/Globulin Ratio 1.93 (1.60-3.17); Anion Gap 12.1 mmol/L (10.00-18.00); BUN/Creat Ratio 24.21 Ratio (12.00-20.00); Blood Urea Nitrogen 16.1 mg/dL (9.0-27.0); Calcium 9.7 mg/dL (8.7-10.3); Carbon Dioxide 24.9 mmol/L (20.0-27.5); Globulin 2.3 g/dL (1.6-3.3); Non-African American GFR(CKD) 117.4 (60.0-200.0); Potassium 3.9 mmol/L (3.5-5.5); T4, Free (Free Thyroxine) 1.35 ng/dL (0.800-1.800); Total Bilirubin 0.9 mg/dL (0.30-1.20); Total Protein 6.8 g/dL (6.2-8.2)
== END | disposition home or self-care (01) ==
LOC: LABWHC1 14:38
PROVIDERS: ATTEND Internal Medicine
DX: O24.419 Gestational diabetes mellitus in pregnancy, unspecified control (principal); E03.9 Hypothyroidism, unspecified; R10.9 Unspecified abdominal pain
CPT/HCPCS: 36415; 80053; 82150; 83036; 83690; 84439; 84443; 85025

== ENCOUNTER → 2023-11-25 | Outpatient (CLI) | payer MEDICAID ==
[2023-11-25 15:51] LABS: T4, Free (Free Thyroxine) 1.33 ng/dL (0.80-1.80)
== END | disposition home or self-care (01) ==
LOC: LABWHC1 09:16
PROVIDERS: ATTEND Internal Medicine
DX: O24.419 Gestational diabetes mellitus in pregnancy, unspecified control (principal); E03.9 Hypothyroidism, unspecified; Z3A.00 Weeks of gestation of pregnancy not specified
CPT/HCPCS: 36415; 83036; 84439; 84443

== ENCOUNTER → 2024-01-03 | Outpatient (CLI) | payer MEDICAID ==
[2024-01-03 10:35] LABS: T4, Free (Free Thyroxine) 1.21 ng/dL (0.80-1.80)
== END | disposition home or self-care (01) ==
LOC: LABWHC1 07:56
PROVIDERS: ATTEND Internal Medicine
DX: E03.9 Hypothyroidism, unspecified (principal)
CPT/HCPCS: 36415; 84439; 84443

== ENCOUNTER → 2024-04-24 | Outpatient (CLI) | payer MEDICAID ==
[2024-04-24 15:19] LABS: T4, Free (Free Thyroxine) 0.9 ng/dL (0.80-1.80)
== END | disposition home or self-care (01) ==
LOC: LABWHC1 09:17
PROVIDERS: ATTEND Internal Medicine
DX: E03.9 Hypothyroidism, unspecified (principal)
CPT/HCPCS: 36415; 84439; 84443

== ENCOUNTER → 2024-05-02 | Outpatient (CLI) | payer MEDICAID | END | disposition home or self-care (01) | LOC: LABWHC1 12:20 | PROVIDERS: ATTEND Obstetrics & Gynecology | DX: Z34.82 Encounter for supervision of other normal pregnancy, second trimester (principal) | CPT/HCPCS: 86850; 86900; 86901 ==

== ENCOUNTER → 2024-05-04 | Outpatient (CLI) | payer MEDICAID ==
[2024-05-04] MEDS: Rhogam IMMUNE GLOBULIN 1,500 UNIT/1 ML IM ONE (13:17)
[2024-05-04 13:21] VITALS: BP 137/79; PULSE 92; RESP 16; TEMP 98.2
== END | disposition home or self-care (01) ==
LOC: PROCWHC3 12:51
PROVIDERS: ATTEND Obstetrics & Gynecology
DX: Z29.13 Encounter for prophylactic Rho(D) immune globulin (principal)
CPT/HCPCS: 96372; J2790

== ENCOUNTER → 2024-05-30 | Outpatient (CLI) | payer MEDICAID ==
[2024-05-30 16:33] LABS: T4, Free (Free Thyroxine) 0.88 ng/dL (0.80-1.80)
== END | disposition home or self-care (01) ==
LOC: LABWHC1 08:51
PROVIDERS: ATTEND Internal Medicine
DX: E03.9 Hypothyroidism, unspecified (principal)
CPT/HCPCS: 36415; 84439; 84443

== ENCOUNTER 2024-07-17 05:58 | Inpatient (IN) | payer MEDICAID ==
[2024-07-17 06:35] LABS: Glucose,Whole Blood 89 mg/dL (70-110)
[2024-07-17] MEDS ORDERED: miSOPROStoL 200 MCG TAB PO PRN (06:35)
[2024-07-17] MEDS ORDERED: TRANEXAMIC 1,000 MG/100ML-NACL 1,000 MG in EMPTY BAG 1 BAG IV PRN (06:35)
[2024-07-17] MEDS ORDERED: OXYTOCIN 10 UNIT/ML 1 ML VIAL IM PRN (06:35)
[2024-07-17] MEDS ORDERED: CARBOPROST TROMETHAMINE 250 MCG/ML 1 ML AMP IM PRN (06:35)
[2024-07-17] MEDS ORDERED: METHYLERGONOVINE 0.2 MG/ML 1 ML AMP IM PRN (06:35)
[2024-07-17 06:46] LABS: Basophils % (A) 0 %; Eosinophils # (A) 0.1 k/uL (0-0.7); Eosinophils % (A) 1 %; HCT 39.2 % (34.0-46.0); HGB 12.9 gm/dL (11.4-16.0); Lymphocytes # (A) 1.6 k/uL (1.0-4.8); Lymphocytes % (A) 14 %; MCH 29.9 pg (25.0-35.0); MCV 90.7 fL (80.0-100.0); Mean Platelet Volume 7.1; Monocytes # (A) 0.6 k/uL (0-1.0); Monocytes % (A) 5 %; Neutrophils # (A) 9.4 k/uL (1.3-7.7); Neutrophils % (A) 79 %; Platelet Count 203 k/uL (150-450); RBC 4.32 m/uL (3.80-5.40); RDW 14.8 % (11.5-15.5); WBC 11.9 k/uL (3.8-10.6)
[2024-07-17] MEDS: LACTATED RINGERS 1,000 ML IV ONE (06:46)
[2024-07-17] MEDS: CITRIC ACID-SODIUM CITRATE 15 ML CUP PO ONE (07:43)
[2024-07-17] MEDS ORDERED: MORPHINE SULFATE (PF) 0.3 MG/0.3 ML SYR ONE (08:05)
[2024-07-17] MEDS ORDERED: KETOROLAC 15 MG/ML 1 ML VIAL ONE (08:05)
[2024-07-17] MEDS ORDERED: NALBUPHINE (ANES) 10 MG/ML - 1 ML AMP ONE (08:05)
[2024-07-17] MEDS ORDERED: PHENYLEPHRINE-0.9% NACL SYG 1,000 MCG/10 ML SYRINGE ONE (08:05)
[2024-07-17] MEDS ORDERED: OXYTOCIN 30 UNITS/500 ML NS BAG IV ONE (08:05)
[2024-07-17] MEDS ORDERED: ONDANSETRON 4 MG/2 ML VIAL ONE (08:05)
[2024-07-17] MEDS ORDERED: HYDROmorphone 0.5 MG/0.5 ML SYRINGE IVP PRN (09:02)
[2024-07-17] MEDS ORDERED: NALBUPHINE 10 MG/ML (10 ML MDV) IV PRN (09:02)
[2024-07-17] MEDS ORDERED: KETOROLAC 15 MG/ML 1 ML VIAL IVP PRN (09:02)
[2024-07-17] MEDS ORDERED: diphenhydrAMINE 50 MG/ML 1 ML VIAL IVP PRN ×3 (09:02→09:41)
[2024-07-17] MEDS ORDERED: NALOXONE 0.4 MG/ML 1 ML VIAL IV PRN ×2 (09:02→09:41)
--- NOTE | 2024-07-17 09:36 | P.HPOB ---
History of Present Illness H&P Date: 07/17/24 Chief Complaint: Scheduled section Ms. Son is a 34 year old at 38 weeks and 5 days gestation who presents for scheduled repeat section with bilateral salpingectomy. Her has been complicated by pre-gestational diabetes on insulin (24 to 30u Humalog with meals) and Metformin (500mg daily). The patient also has hypothyroidism for which she takes Tirosint 88 mcg daily. She is followed by endocrinology for management of these conditions. The fetus has undergone surveillance which has been reassuring. The fetus is estimated to w eight in the 31%ile based on a 30 week growth US. Obstetric history: 2 FTCS, 1 SAB work-up: blood type A negative (s/p rhogam 05/04), antibody screen negative, rubella immune, VDRL non-reactive, HBsAg negative, HCV Ab non- reactive, gonorrhea negative, chlamydia negative, GBS negative. Past Medical History Past Medical History: GERD/Reflux, Thyroid Disorder Additional Past Medical History / Comment(s): Patient has a history of hypothyroidism and renal calculi. Insulin-dependent gestational diabetes AND HTN, History of Any Multi-Drug Resistant Organisms: None Reported Past Surgical History: Section, Orthopedic Surgery Additional Past Surgical History / Comment(s): RT foot SX, LT KNEE, Past Anesthesia/Blood Transfusion Reactions: Postoperative Nausea & Vomiting (PONV) Past Psychological History: No Psychological Hx Reported Smoking Status: Never smoker Past Alcohol Use History: None Reported Past Drug Use History: None Reported - Past Family History Father Family Medical History: Hypertension Medications and Allergies Home Medications Medication Instructions Recorded Confirmed Type Cholecalciferol (Vitamin D3) 1,250 mcg PO BAXTER 10/13/23 07/17/24 History [Vitamin D3 (1250 Mcg = 50,000 Iu)] Levothyroxine Sodium [Tirosint] 75 mcg PO QAM 10/13/23 07/17/24 History Omeprazole 20 - 40 mg PO DAILY 10/13/23 07/17/24 History INSULIN LISPRO (HumaLOG) [humaLOG] 24 - 30 units SQ TID 07/17/24 07/17/24 History metFORMIN HCL 1 tab PO DAILY 07/17/24 07/17/24 History Allergies Allergy/AdvReac Type Severity Reaction Status Date / Time bacitracin AdvReac Rash/Hives Verified 07/17/24 06:30 Exam Vital Signs Temp Pulse Resp BP Pulse Ox 07/17/24 06:30 97.0 F L 105 H 18 133/85 97 Intake and Output 07/16/24 07/17/24 07/17/24 22:59 06:59 14:59 Other: Weight 84.368 kg Focused physical exam is performed. This is a healthy-appearing in no apparent distress. Breathing is non-labored. Abdomen is gravid and non-tender. Extremities non-tender and non-edematous. heart tones are reactive and reassuring on NST. Results Result Diagrams: 07/17/24 06:35 Abnormal Lab Results - Last 24 Hours (Table) 07/17/24 Range/Units 06:35 WBC 11.9 H (3.8-10.6) k/uL Neutrophils # 9.4 H (1.3-7.7) k/uL Assessment and Plan Assessment: 34 year old at 38 weeks and 5 days presenting for scheduled repeat section with bilateral salpingectomy Plan: Admit, NPO, initiate protocol
[2024-07-17] MEDS ORDERED: SIMETHICONE 80 MG CHEWABLE PO PRN (09:41)
[2024-07-17] MEDS ORDERED: diphenhydrAMINE 25 MG CAP PO PRN (09:41)
[2024-07-17] MEDS ORDERED: ZOLPIDEM 5 MG TAB PO PRN (09:41)
[2024-07-17] MEDS ORDERED: ONDANSETRON 4 MG/2 ML VIAL IVP PRN (09:41)
[2024-07-17] MEDS ORDERED: diphenhydrAMINE 50 MG CAP PO PRN (09:41)
--- NOTE | 2024-07-17 09:41 | P.OP ---
Date of Procedure: 07/17/24 Preoperative Diagnosis: 1. Term IUP at 38 weeks and 5 days 2. Type 2 Diabetes Mellitus 3. History of prior section x2 4. Family Planning Postoperative Diagnosis: Same Procedure(s) Performed: Repeat Lower Transverse Section with Bilateral Salpingectomy Implants: None Anesthesia: spinal Surgeon: Adelaide Coats Plaster Caster #1: Milton Nash Estimated Blood Loss (ml): 352 Urine output (ml): 200 Pathology: other (bilateral fallopian tubes) Indications for Procedure: Ms. Son is a 34 year old at 38 weeks and 5 days presenting for scheduled repeat section with Type 2 DM. The risks, benefits, and alternatives to section with bilateral salpingectomy were discussed with the patient including risk of bleeding, infection, damage to surrounding structures including bladder/bowels/ureters, and post-operative VTE. We reviewed the possibility of regret and the fact that bilateral salpingectomy is irreversible. The patient understands these risks and desires to proceed with section. Operative Findings: Cephalic presentation, clear amniotic fluid. Viable male infant. Apgars 9/9. Weight 8 pounds and 12 ounces (3980 grams). Moderate adhesive disease. Normal uterus, bilateral fallopian tubes, and ovaries. Description of Procedure: The patient was taken back to the operating room where spinal anesthesia was found to be adequate. Two grams of Ancef were given for infection prophylaxis. She was prepared and draped in the dorsal supine position with a leftward tilt. A Pfannenstiel skin incision was made with the scalpel. The incision was carried down to the fascia with a bovie. The fascia was incised and extended laterally with Fuller scissors. The superior aspect of the fascia was grasped with the Devika clamps. The underlying rectus muscle was dissected off sharply with Fuller scissors. In a similar fashion, the inferior aspect of the fascia was elevated with Devika clamps and the rectus muscle and pyramidalis were dissected off. Excellent hemostasis was achieved with the bovie. The rectus muscle was in the midline down to the level of the pubic symphysis. Pre- peritoneal fatty tissue was bluntly dissected to expose the peritoneum. The peritoneum was found to be free of adherent bowel and entered sharply with Fuller scissors. The peritoneal incision was extended superiorly and inferiorly to the bladder reflection with good visualization of the bladder. The bladder blade was inserted and vesicouterine peritoneum was identified. Intraabdominal survey revealed scant, clear peritoneal fluid and the thinned-out lower uterine segment. The bladder blade was repositioned to keep the bladder out of the operative field. The lower uterine segment was incised with a scalpel. The amniotic sac was ruptured with an Allis clamp and clear fluid was noted. The uterine incision was extended bluntly with lateral and upward traction. The fetus was in cephalic presentation. The head was elevated out of the pelvis with special attention paid to avoid using the uterine incision as a fulcrum. Gentle fundal pressure was applied once the head was brought into the incision. The was delivered with no difficulty and was noted to be crying spontaneously. The mouth and nose were suctioned with a bulb. The cord was clamped and cut. The infant was handed off to the telephone recorder. IV oxytocin was initiated to facilitate uterine contractions. The placenta was delivered intact with manual massage of uterine fundus. The uterus was then exteriorized and the inside of the uterus was gently wiped with a lap sponge to assure complete removal of placental membranes. The uterine incision was closed with 0-Vicryl suture in a running locked fashion. A second imbricating layer was placed with 0-Vicryl. The ovaries and tubes were found to be normal. The Ligasure device was used to sequentially cauterize and then cut the fallopian tubes from the fimbriated ends to the cornua, bilaterally. The uterus and ovaries were then gently returned to the abdominal cavity. The abdomen was copiously suction irrigated. The uterine incision was reinspected and excellent hemostasis was noted. The fascial layer was closed with a 0-Vicryl suture. The subcutaneous tissue was reapproximated with 2-0 Plain Gut. The skin was closed with 4-0 Monocryl in a subcuticular fashion.The patient tolerated the procedure well. All the counts were correct times two. The patient was taken to the recovery room in a stable condition. A physician surgical aide was utilized for the entire procedure due to the need for tissue retraction, dissection of vital structures, prevention and management of blood loss, and reduction in overall operative and anesthesia time as is the standard of care.
[2024-07-17] MEDS: KETOROLAC 15 MG/ML 1 ML VIAL IVP SCH (10:29)
[2024-07-17] MEDS: IBUPROFEN 800 MG TAB PO SCH (10:34)
[2024-07-17] MEDS: METOCLOPRAMIDE 5 MG/ML 2 ML VIAL IVP PRN (12:39)
[2024-07-17 12:48] LABS: Glucose,Whole Blood 90 mg/dL (70-110)
[2024-07-17] MEDS: ONDANSETRON 4 MG/2 ML VIAL IVP PRN (15:30)
[2024-07-17] MEDS: Rhogam IMMUNE GLOBULIN 1,500 UNIT/1 ML IM ONE (18:02)
[2024-07-17] MEDS: INSULIN ASPART (NovoLOG) 100 UNIT/ML VIAL SQ SCH (18:07)
[2024-07-17] MEDS: LACTATED RINGERS 1,000 ML IV SCH (20:26)
[2024-07-17] MEDS: ACETAMINOPHEN TAB 500 MG TAB PO SCH (20:27)
[2024-07-17] MEDS: SENNOSIDES-DOCUSATE SODIUM 1 EACH TAB PO SCH (20:59)
[2024-07-18 06:15] LABS: Basophils % (A) 0 %; Eosinophils # (A) 0.2 k/uL (0-0.7); Eosinophils % (A) 2 %; HCT 35.2 % (34.0-46.0); Lymphocytes # (A) 1.5 k/uL (1.0-4.8); Lymphocytes % (A) 13 %; MCH 31.4 pg (25.0-35.0); MCHC 34.2 g/dL (31.0-37.0); MCV 91.6 fL (80.0-100.0); Mean Platelet Volume 7.5; Monocytes # (A) 0.7 k/uL (0-1.0); Monocytes % (A) 5 %; Neutrophils # (A) 9.6 k/uL (1.3-7.7); Neutrophils % (A) 79 %; Platelet Count 173 k/uL (150-450); RBC 3.84 m/uL (3.80-5.40); RDW 14.8 % (11.5-15.5); WBC 12.1 k/uL (3.8-10.6)
--- NOTE | 2024-07-18 07:34 | P.PN ---
Progress Note - Text Progress Note Date: 07/18/24 Postoperative day 1 status post section under spinal anesthesia, and intrathecal morphine given for postoperative analgesia, patient doing well, there is no anesthesia related complications, Patient had no headache, vital signs stable , Assessment and plan= postop day 1 status post , doing well there is no anesthesia related complication.
--- NOTE | 2024-07-18 08:47 | P.PNOBGPC ---
Subjective - Subjective Patient reports: Reports appetite normal, Reports voiding normally, Reports pain well controlled, Reports ambulating normally : doing well Objective - Vital Signs Latest vital signs: Vital Signs Temp Pulse Resp BP Pulse Ox 07/18/24 08:00 97.9 F 80 16 115/73 96 07/18/24 00:00 97.9 F 76 16 109/61 97 07/17/24 20:00 98.2 F 87 16 107/64 97 07/17/24 18:09 97 07/17/24 14:02 73 16 119/64 97 07/17/24 12:02 94 16 07/17/24 11:17 98.1 F 100 16 142/72 97 07/17/24 11:00 82 16 128/73 97 07/17/24 10:47 83 135/81 07/17/24 10:23 81 16 131/80 07/17/24 10:20 81 16 131/80 97 07/17/24 09:47 94 16 130/86 96 07/17/24 09:32 89 16 124/74 96 07/17/24 09:17 96.7 F L 89 16 124/74 96 07/17/24 09:02 82 16 132/70 96 Intake and Output 07/17/24 07/18/24 07/18/24 22:59 06:59 14:59 Output Total 1800 550 Balance -1800 -550 Output: Urine 1800 550 Uretheral (Grey) 600 Other: # Voids 1 1 # Bowel Movements 1 - Exam Extremities: Present: normal Abdomen: Present: normal appearance, soft. Absent: distention, tenderness Incision: Present: normal, dry, intact Uterus: Present: normal, firm (The uterine fundus is tonic and appropriately tender just below the umbilicus.) - Labs Labs: Abnormal Lab Results - Last 24 Hours (Table) 07/18/24 Range/Units 05:27 WBC 12.1 H (3.8-10.6) k/uL Neutrophils # 9.6 H (1.3-7.7) k/uL Assessment and Plan (1) Status post section Current Visit: Yes Status: Acute Code(s): Z98.891 - HISTORY OF UTERINE SCAR FROM PREVIOUS SURGERY SNOMED Code(s): 813147232 Plan: Continue routine and postoperative care. I would anticipate discharge home tomorrow pending no complications. I have encouraged the patient ambulate in the hallways routinely today and have provided her with a prescription for narcotics for when she goes home as outpatient pharmacy will be closed tomorrow.
--- NOTE | 2024-07-19 08:46 | P.DS ---
Providers Date of admission: 07/17/24 05:58 Expected date of discharge: 07/19/24 Attending physician: Adelaide Coats MD Primary care physician: Nik Mosquera - Discharge Diagnosis(es) (1) Status post section Current Visit: Yes Status: Acute (2) 38 weeks gestation of Current Visit: No Status: Acute (3) Gestational diabetes mellitus Current Visit: No Status: Acute (4) Rh negative status during Current Visit: No Status: Chronic Hospital Course: This is a 34-year-old 4 now para 3-0-1-3 that presented to labor and delivery on 07/17 for scheduled repeat section with bilateral salpingectomy. Patient had been receiving routine care which had been essentially uncomplicated. Patient has a known history of pregestational diabetes and was on insulin and metformin. Patient in addition had a history of hypothyroidism that was controlled with oral medication. For full details on this patient please see the dictated history and physical. Patient was admitted and taken back to the operating room where repeat section with bilateral salpingectomy was completed without difficulty. For full details on the please see the dictated operative report. Patient delivered a viable male infant at 827, weight of 8 pounds 12 ounces, Apgars of 9 and 9 at 1 and 5 minutes respectively. Patient's postoperative course has been uneventful. In this postoperative day #2 she is ambulating and voiding without difficulty. She is tolerating a regular diet without nausea or vomiting. States her pain is well-controlled. She is requesting discharge home. Patient Condition at Discharge: Good Plan - Discharge Summary New Discharge Prescriptions: No Action Cholecalciferol (Vitamin D3) [Vitamin D3 (1250 Mcg = 50,000 Iu)] 1,250 mcg PO BAXTER Omeprazole 20 - 40 mg PO DAILY Levothyroxine Sodium [Tirosint] 75 mcg PO QAM metFORMIN HCL 1 tab PO DAILY INSULIN LISPRO (HumaLOG) [humaLOG] 24 - 30 units SQ TID Discharge Medication List Cholecalciferol (Vitamin D3) [Vitamin D3 (1250 Mcg = 50,000 Iu)] 1,250 mcg PO BAXTER 10/13/23 [History] Levothyroxine Sodium [Tirosint] 75 mcg PO QAM 10/13/23 [History] Omeprazole 20 - 40 mg PO DAILY 10/13/23 [History] INSULIN LISPRO (HumaLOG) [humaLOG] 24 - 30 units SQ TID 07/17/24 [History] metFORMIN HCL 1 tab PO DAILY 07/17/24 [History] Follow up Appointment(s)/Referral(s): Adelaide Coats MD [STAFF PHYSICIAN] - 08/02/24 9:45 am (Post Appointment 08-23-2024 at 9:45am) Patient Instructions/Handouts: (DC), (GEN) Activity/Diet/Wound Care/Special Instructions: No tub baths or intercourse until 6 weeks postoperatively. Routine postoperative check at [address] Coats. Should she have any concerns prior to this appointment she is urged to call the office. Patient is given prescriptions for oxy, encouraged Motrin 600 mg or 3 tablets every 6 hours as needed for pain. Discharge Disposition: HOME SELF-CARE
[2024-07-19 09:14] VITALS: BP 149/80; PULSE 69; RESP 14; TEMP 98.4
== END 2024-07-19 12:00 | disposition home or self-care (01) | DRG 784 ==
LOC: 4FBP 05:58
PROVIDERS: ADMIT Obstetrics & Gynecology; ATTEND Obstetrics & Gynecology
PROC: 0UB70ZZ Excision of Bilateral Fallopian Tubes, Open Approach (ICD-10-PCS; 2024-07-17)
PROC: 10D00Z1 Extraction of Products of Conception, Low, Open Approach (ICD-10-PCS; principal; 2024-07-17 08:05)
DX: O24.12 Pre-existing type 2 diabetes mellitus, in childbirth (principal); O10.92 Unspecified pre-existing hypertension complicating childbirth; E03.9 Hypothyroidism, unspecified; Z37.0 Single live birth; Z3A.38 38 weeks gestation of pregnancy; O34.211 Maternal care for low transverse scar from previous cesarean delivery; O99.284 Endocrine, nutritional and metabolic diseases complicating childbirth; Z79.890 Hormone replacement therapy; Z30.2 Encounter for sterilization; Z67.91 Unspecified blood type, Rh negative
CPT/HCPCS: 85025; 85461; 86850; 86900; 86901; 88302

== ENCOUNTER → 2024-09-27 | Outpatient (CLI) | payer MEDICAID ==
[2024-09-27 15:21] LABS: Blood Urea Nitrogen 14.7 mg/dL (9.0-27.0); Calcium 10.6 mg/dL (8.7-10.3); Carbon Dioxide 25.3 mmol/L (21.6-31.8); Chloride 106 mmol/L (96-109); Glucose 96 mg/dL (70-110); Potassium 4.5 mmol/L (3.5-5.5); Sodium 142 mmol/L (135-145); T4, Free (Free Thyroxine) 1.06 ng/dL (0.80-1.80)
== END | disposition home or self-care (01) ==
LOC: LABWHC1 09:09
PROVIDERS: ATTEND Internal Medicine
DX: O24.419 Gestational diabetes mellitus in pregnancy, unspecified control (principal); O99.280 Endocrine, nutritional and metabolic diseases complicating pregnancy, unspecified trimester; E03.9 Hypothyroidism, unspecified; Z3A.00 Weeks of gestation of pregnancy not specified
CPT/HCPCS: 36415; 80048; 83036; 84439; 84443

== ENCOUNTER 2024-12-23 07:38 | Inpatient (IN) | payer MEDICAID ==
--- NOTE | 2024-12-23 08:13 | ED ---
Abdominal Pain HPI - General Chief Complaint: Abdominal Pain Stated Complaint: Back Pain Time Seen by Provider: 12/23/24 07:54 Source: patient, RN notes reviewed Mode of arrival: ambulatory Limitations: no limitations - History of Present Illness Initial Comments: This is a 34-year-old female who presents to the emergency department for abdominal pain. Patient has been dealing with postprandial epigastric pain radiating to the back for the last month. She had an ultrasound done at her PCPs office 3 days ago and received a call last night saying that it demonstrated acute cholecystitis. States that around 4 AM she developed a flareup that has been more severe than what she has experienced before. She has nausea but no vomiting. States that all she had last night was water and has not had anything to eat or drink since. Denies any fevers or chills. Denies any diarrhea or constipation. MD Complaint: abdominal pain - Related Data Home Medications Medication Instructions Recorded Confirmed Cholecalciferol (Vitamin D3) 1,250 mcg PO BAXTER 10/13/23 12/23/24 [Vitamin D3 (1250 Mcg = 50,000 Iu)] Omeprazole 20 mg PO BID 10/13/23 12/23/24 Levothyroxine Sodium [Tirosint] 75 mcg PO DAILY 12/23/24 12/23/24 Xby-Bril-Wipay Acid 1 cap PO DAILY 12/23/24 12/23/24 [-U Capsule (formulary)] Allergies Allergy/AdvReac Type Severity Reaction Status Date / Time bacitracin AdvReac Rash/Hives Verified 12/23/24 12:18 Review of Systems ROS Statement: Those systems with pertinent positive or pertinent negative responses have been documented in the HPI. ROS Other: All systems not noted in ROS Statement are negative. Past Medical History Past Medical History: GERD/Reflux, Thyroid Disorder Additional Past Medical History / Comment(s): Patient has a history of hypothyroidism and renal calculi. Insulin-dependent gestational diabetes AND HTN, History of Any Multi-Drug Resistant Organisms: None Reported Past Surgical History: Section, Orthopedic Surgery Additional Past Surgical History / Comment(s): RT foot SX, LT KNEE, Past Anesthesia/Blood Transfusion Reactions: Postoperative Nausea & Vomiting (PONV) Past Psychological History: No Psychological Hx Reported Smoking Status: Never smoker Past Alcohol Use History: None Reported Past Drug Use History: None Reported - Past Family History Father Family Medical History: Hypertension General Exam Limitations: no limitations General appearance: alert, in no apparent distress Head exam: Present: atraumatic, normocephalic, normal inspection Respiratory exam: Present: normal lung sounds bilaterally. Absent: respiratory distress, wheezes, rales, rhonchi, stridor Cardiovascular Exam: Present: regular rate, normal rhythm GI/Abdominal exam: Present: soft, tenderness (Epigastric), normal bowel sounds. Absent: distended Neurological exam: Present: alert, oriented X3, CN II-XII intact Psychiatric exam: Present: normal affect, normal mood Skin exam: Present: warm, dry, intact, normal color. Absent: rash Course Vital Signs 12/23/24 12/23/24 12/23/24 07:46 08:28 09:05 Temperature 97.3 F L 98.3 F Pulse Rate 78 77 75 Respiratory 16 16 18 Rate Blood Pressure 114/75 103/69 109/59 O2 Sat by Pulse 98 100 98 Oximetry 12/23/24 12/23/24 10:01 11:08 Temperature 97.8 F Pulse Rate 77 78 Respiratory 16 16 Rate Blood Pressure 101/62 112/71 O2 Sat by Pulse 99 97 Oximetry Medical Decision Making - Medical Decision Making This is a 34-year-old female who presents to the emergency department for abdominal pain. Was pt. sent in by a medical professional or institution? @ -No Did you speak to anyone other than the patient for history? @ -No Did you review nursing and triage notes? @ -Yes, and I agree, it is accurate with regards to the patient's symptoms. Were old charts reviewed? @ -Yes, abdominal ultrasound from 12/20/2024 revealing a thickened gallbladder wall with increased vascularity concerning for acute cholecystitis. Differential Diagnosis? @ -Differential Abdominal Pain Women: Appendicitis, Cholecystitis, diverticulosis, ischemic bowel, pancreatitis, hepatitis, UTI, gastroenteritis, AAA, incarcerated hernia, bowel obstruction, constipation, inflammatory bowel, hepatitis, peptic ulcer disease, splenic infarction, perforated viscus, vulvitis, ovarian torsion, PID, kidney stone, placenta abruption, this is not meant to be an all-inclusive list EKG interpreted by me (3pts min.)? @ -EKG interpreted by me demonstrating the following: Sinus rhythm. Ventricular rate 68 bpm, NM interval 169 ms, QRS duration 88 ms, QTc 399 ms. X-rays interpreted by me (1pt min.)? @ -Not obtained CT interpreted by me (1pt min.)? @ -Not obtained U/S interpreted by me (1pt. min.)? @ -Gallbladder ultrasound obtained. My interpretation identifies choleli thiasis. What testing was considered but not performed? (CT, X-rays, U/S, labs)? Why? @ -None What meds were considered but not given? Why? @ -None Did you discuss the management of the patient with other professionals? @ -Yes, Dr. Gorman, general surgery, who is agreeable to admission at this facility with medical admission. Dr. Krishnan accepts the patient for admission to medicine. Did you reconcile home meds? @ -Yes Was smoking cessation discussed for >3mins.? @ -No Was critical care preformed (if so, how long)? @ -No Were there social determinants of health that impacted care today? How? (Homelessness, low income, unemployed, alcoholism, drug addiction, transportation, low edu. Level, literacy, decrease access to med. care, retirement, rehab)? @ -No Was there de-escalation of care discussed even if they declined? (Discuss DNR or withdrawal of care, Hospice)? @ -No What co-morbidities impacted this encounter? (DM, HTN, Smoking, COPD, CAD, Cancer, CVA, Hep., AIDS, mental health diagnosis, sleep apnea, morbid obesity)? @ -None Was patient admitted / discharged? @ -Admitted. Patient had an outpatient ultrasound of her gallbladder done 3 days ago and received a call yesterday advising that it demonstrated acute cholecystitis. Given this finding, blood culture was obtained and she was started on ceftriaxone and Flagyl. Lab work obtained today demonstrates leukocytosis with a white blood cell count of 14.08. LFTs did return elevated with a bilirubin of 1.7, AST of 246, ALT of 107, and alkaline phosphatase of 159. Given the elevation in her LFTs, we did repeat an ultrasound of the gallbladder. Repeat ultrasound shows cholelithiasis and adenomyomatosis of the gallbladder. CBD is not dilated. Patient is employed here as a nurse and is requesting surgery with Dr. Gorman, specifically. Case discussed with Dr. Gorman, who is agreeable to consulting on the patient. He advised that nothing would likely take place over the weekend and because Dr. Miguel will be available on Wednesday, she does not need to be transferred out for the elevated LFTs. This was discussed with the patient who is in agreement with this plan. Patient admitted to medicine for cholecystitis with surgery listed as consult. Patient kept on antibiotics and maintenance fluids. Case discussed with ED attending, Dr. Simons. Undiagnosed new problem with uncertain prognosis? @ -None Drug Therapy requiring intensive monitoring for toxicity (Heparin, Nitro, Insulin, Cardizem)? @ -None Were any procedures done? @ -None Diagnosis/symptom? @ -Acute cholecystitis Acute, or Chronic, or Acute on Chronic? @ -Acute Uncomplicated (without systemic symptoms) or Complicated (systemic symptoms)? @ -Complicated Side effects of treatment? @ -None Exacerbation, Progression, or Severe Exacerbation] @ -Not applicable Poses a threat to life or bodily function? @ -Yes, can lead to life-threatening infection - Lab Data Result diagrams: 12/23/24 08:18 12/23/24 08:15 Lab Results 12/23/24 12/23/24 12/23/24 Range/Units 08:15 08:18 08:18 WBC 14.08 H (4.50-10.00) 10*3/uL RBC 5.25 H (4.10-5.20) 10*6/uL Hgb 15.9 H (12.0-15.0) g/dL Hct 47.6 H (37.2-46.3) % MCV 90.7 (80.0-97.0) fL MCH 30.3 (27.0-32.0) pg MCHC 33.4 (32.0-37.0) g/dL Plt Count 281 (140-440) 10*3/uL MPV 9.1 L (9.5-12.2) fL Immature Gran % (Auto) 0.4 % Neutrophils % 84.1 % Lymphocytes % 10.4 % Monocytes % 4.3 % Eosinophils % 0.4 % Basophils % 0.4 % Immature Gran # 0.05 H (0.00-0.04) 10*3/uL Neutrophils # 11.83 H (1.80-7.70) 10*3/uL Lymphocytes # 1.47 (0.90-5.00) 10*3/uL Monocytes # 0.61 (0.20-1.00) 10*3/uL Eosinophils # 0.06 (0.04-0.35) 10*3/uL Basophils # 0.06 (0.00-0.10) 10*3/uL PT (10.0-12.5) sec INR (<1.2) APTT (22.0-30.0) sec Sodium 142 (137-145) mmol/L Potassium 4.3 (3.5-5.1) mmol/L Chloride 104 (98-107) mmol/L Carbon Dioxide 28 (22-30) mmol/L Anion Gap 10 mmol/L BUN 18 H (7-17) mg/dL Creatinine 0.61 (0.52-1.04) mg/dL Est GFR (CKD-EPI)AfAm >90 (>60 ml/min/1.73 sqM) Est GFR (CKD-EPI)NonAf >90 (>60 ml/min/1.73 sqM) Glucose 115 H (74-99) mg/dL Plasma Lactic Acid Mehdi 1.4 (0.7-2.0) mmol/L Calcium 10.0 (8.4-10.2) mg/dL Total Bilirubin 1.7 H (0.2-1.3) mg/dL AST 246 H (14-36) U/L ALT 107 H (4-34) U/L Alkaline Phosphatase 159 H (38-126) U/L Total Protein 8.0 (6.3-8.2) g/dL Albumin 5.0 (3.5-5.0) g/dL Amylase 56 (30-110) U/L Lipase 88 (23-300) U/L HCG, Qual Not Detected 12/23/24 Range/Units 08:25 WBC (4.50-10.00) 10*3/uL RBC (4.10-5.20) 10*6/uL Hgb (12.0-15.0) g/dL Hct (37.2-46.3) % MCV (80.0-97.0) fL MCH (27.0-32.0) pg MCHC (32.0-37.0) g/dL Plt Count (140-440) 10*3/uL MPV (9.5-12.2) fL Immature Gran % (Auto) % Neutrophils % % Lymphocytes % % Monocytes % % Eosinophils % % Basophils % % Immature Gran # (0.00-0.04) 10*3/uL Neutrophils # (1.80-7.70) 10*3/uL Lymphocytes # (0.90-5.00) 10*3/uL Monocytes # (0.20-1.00) 10*3/uL Eosinophils # (0.04-0.35) 10*3/uL Basophils # (0.00-0.10) 10*3/uL PT 10.7 (10.0-12.5) sec INR 1.0 (<1.2) APTT 23.5 (22.0-30.0) sec Sodium (137-145) mmol/L Potassium (3.5-5.1) mmol/L Chloride (98-107) mmol/L Carbon Dioxide (22-30) mmol/L Anion Gap mmol/L BUN (7-17) mg/dL Creatinine (0.52-1.04) mg/dL Est GFR (CKD-EPI)AfAm (>60 ml/min/1.73 sqM) Est GFR (CKD-EPI)NonAf (>60 ml/min/1.73 sqM) Glucose (74-99) mg/dL Plasma Lactic Acid Mehdi (0.7-2.0) mmol/L Calcium (8.4-10.2) mg/dL Total Bilirubin (0.2-1.3) mg/dL AST (14-36) U/L ALT (4-34) U/L Alkaline Phosphatase (38-126) U/L Total Protein (6.3-8.2) g/dL Albumin (3.5-5.0) g/dL Amylase (30-110) U/L Lipase (23-300) U/L HCG, Qual - Radiology Data Radiology results: report reviewed, image reviewed Disposition Clinical Impression: Acute cholecystitis Disposition: ADMITTED IP TO THIS HOSP
[2024-12-23] MEDS: SODIUM CHLORIDE 0.9% 1,000 ML IV SCH (08:20)
[2024-12-23] MEDS: ONDANSETRON 4 MG/2 ML VIAL IVP STA (08:30)
[2024-12-23 08:31] LABS: Basophils # (A) 0.06 10*3/uL (0.00-0.10); Basophils % (A) 0.4 %; Eosinophils # (A) 0.06 10*3/uL (0.04-0.35); Eosinophils % (A) 0.4 %; HCT 47.6 % (37.2-46.3); HGB 15.9 g/dL (12.0-15.0); Lymphocytes # (A) 1.47 10*3/uL (0.90-5.00); Lymphocytes % (A) 10.4 %; MCH 30.3 pg (27.0-32.0); MCHC 33.4 g/dL (32.0-37.0); MCV 90.7 fL (80.0-97.0); Mean Platelet Volume 9.1 fL (9.5-12.2); Monocytes # (A) 0.61 10*3/uL (0.20-1.00); Monocytes % (A) 4.3 %; Neutrophils # (A) 11.83 10*3/uL (1.80-7.70); Neutrophils % (A) 84.1 %; Platelet Count 281 10*3/uL (140-440); RBC 5.25 10*6/uL (4.10-5.20); RDW 12.8 % (11.5-14.5); WBC 14.08 10*3/uL (4.50-10.00)
[2024-12-23] MEDS: KETOROLAC 15 MG/ML 1 ML VIAL IVP STA ×2 (08:35→10:03)
[2024-12-23] MEDS: HYDROmorphone 1 MG/ML 1 ML SYRINGE IVP STA (08:37)
[2024-12-23] MEDS: cefTRIAXone IN SWFI 1,000 MG/10 ML SYRINGE IVP ONE (08:37)
[2024-12-23] MEDS: PANTOPRAZOLE 40 MG/10 ML VIAL IVP STA (08:40)
[2024-12-23] MEDS: SODIUM CHLORIDE 0.9% 1,000 ML IV STA (08:42)
[2024-12-23 08:44] LABS: HCG,Qualitative Serum Not Detected
[2024-12-23] MEDS: metroNIDAZOLE-NS PMX 500 MG in SALINE 1 100ML.BAG IVPB SCH (08:44)
[2024-12-23 08:46] LABS: ALT 107 U/L (4-34); African American GFR (CKD) >90 (>60 ml/min/1.73 sqM); Amylase 56 U/L (30-110); Anion Gap 10 mmol/L; Blood Urea Nitrogen 18 mg/dL (7-17); Carbon Dioxide 28 mmol/L (22-30); Chloride 104 mmol/L (98-107); Glucose 115 mg/dL (74-99); Lipase 88 U/L (23-300); Non-African American GFR(CKD) >90 (>60 ml/min/1.73 sqM); Sodium 142 mmol/L (137-145); Total Bilirubin 1.7 mg/dL (0.2-1.3)
[2024-12-23 08:59] LABS: AST 246 U/L (14-36); Alkaline Phosphatase 159 U/L (38-126); Potassium 4.3 mmol/L (3.5-5.1)
[2024-12-23 09:07] LABS: Partial Thromboplastin Time 23.5 sec (22.0-30.0); Prothrombin Time 10.7 sec (10.0-12.5)
--- NOTE | 2024-12-23 09:46 | US ---
EXAMINATION TYPE: US gallbladder DATE OF EXAM: 12/23/2024 COMPARISON: NONE CLINICAL INDICATION: Female, 34 years old with history of Epigastric pain, LFTs; US 3 days ago, acute cholicystistis, increasing pain TECHNIQUE: Grayscale and color Doppler imaging of the right upper quadrant was performed. FINDINGS: EXAM MEASUREMENTS: Liver Length: 17.8 cm Gallbladder Wall: 0.3 cm CBD: 0.6 cm Right Kidney: 12.3 x 5.1 x 4.6 cm Pancreas: wnl Liver: wnl Gallbladder: multiple tiny stones with debris, anterior wall comet tail - probable ademomyomatosis, 12cm in length Evidence for sonographic Sinclair's sign: YES CBD: wnl Right Kidney: wnl IMPRESSION: 1 mild hepatomegaly. 2. Cholelithiasis. 3. There may be some adenomyomatosis of the gallbladder. [facility], , 12/23/2024 9:43 AM
[2024-12-23] MEDS ORDERED: NALOXONE 0.4 MG/ML 1 ML VIAL IV PRN (10:16)
[2024-12-23] MEDS: MORPHINE SULFATE 4 MG/ML SYRINGE IV PRN (14:16)
--- NOTE | 2024-12-23 20:34 | P.HPIM ---
History of Present Illness H&P Date: 12/23/24 Chief Complaint: Abdominal pain 34-year-old female who presents to the emergency department for abdominal pain. Patient has been dealing with postprandial epigastric pain radiating to the back for the last month. She had an ultrasound done at her PCPs office 3 days ago and received a call last night saying that it demonstrated acute cholecystitis. States that around 4 AM she developed a flareup that has been more severe than what she has experienced before. She has nausea but no vomiting. States that all she had last night was water and has not had anything to eat or drink since. Denies any fevers or chills. Denies any diarrhea or constipation. Blood work completed immediately reveals a WBC of 14.08, hemoglobin of 15.9 and platelet count of 281, sodium 142, potassium 4.3, BUN/creatinine of 18/0.61, total bilirubin of 1.7, AST of 246, ALT of 107, amylase lipase within normal limit gallbladder ultrasound reveals mild hepatomegaly and cholelithiasis Patient is admitted for further evaluation by surgery Review of Systems REVIEW OF SYSTEMS: CONSTITUTIONAL: No fever, no malaise, no fatigue. HEENT: No recent visual problems or hearing problems. Denied any sore throat. CARDIOVASCULAR: No chest pain, orthopnea, PND, no palpitations, no syncope. PULMONARY: No shortness of breath, no cough, no hemoptysis. GASTROINTESTINAL: No diarrhea, no nausea, no vomiting, no abdominal pain. NEUROLOGICAL: No headaches, no weakness, no numbness. HEMATOLOGICAL: Denies any bleeding or petechiae. GENITOURINARY: Denies any burning micturition, frequency, or urgency. MUSCULOSKELETAL/RHEUMATOLOGICAL: Denies any joint pain, swelling, or any muscle pain. ENDOCRINE: Denies any polyuria or polydipsia. The rest of the 14-point review of systems is negative. Past Medical History Past Medical History: GERD/Reflux, Thyroid Disorder Additional Past Medical History / Comment(s): Patient has a history of hypothyroidism and renal calculi. Insulin-dependent gestational diabetes AND HTN, History of Any Multi-Drug Resistant Organisms: None Reported Past Surgical History: Section, Orthopedic Surgery Additional Past Surgical History / Comment(s): RT foot SX, LT KNEE, Past Anesthesia/Blood Transfusion Reactions: Postoperative Nausea & Vomiting (PONV) Past Psychological History: No Psychological Hx Reported Smoking Status: Never smoker Past Alcohol Use History: None Reported Past Drug Use History: None Reported - Past Family History Father Family Medical History: Hypertension Medications and Allergies Home Medications Medication Instructions Recorded Confirmed Type Cholecalciferol (Vitamin D3) 1,250 mcg PO BAXTER 10/13/23 12/23/24 History [Vitamin D3 (1250 Mcg = 50,000 Iu)] Omeprazole 20 mg PO BID 10/13/23 12/23/24 History Levothyroxine Sodium [Tirosint] 75 mcg PO DAILY 12/23/24 12/23/24 History Ced-Tzqf-Lbrrz Acid 1 cap PO DAILY 12/23/24 12/23/24 History [-U Capsule (formulary)] Allergies Allergy/AdvReac Type Severity Reaction Status Date / Time bacitracin AdvReac Rash/Hives Verified 12/23/24 12:18 Physical Exam Vitals: Vital Signs Temp Pulse Resp BP Pulse Ox 12/23/24 11:08 78 16 112/71 97 12/23/24 10:01 97.8 F 77 16 101/62 99 12/23/24 09:05 75 18 109/59 98 12/23/24 08:28 98.3 F 77 16 103/69 100 12/23/24 07:46 97.3 F L 78 16 114/75 98 Intake and Output 12/22/24 12/23/24 12/23/24 22:59 06:59 14:59 Other: Weight 65.771 kg General appearance: alert, in no apparent distress Head exam: Present: atraumatic, normocephalic, normal inspection Respiratory exam: Present: normal lung sounds bilaterally. Absent: respiratory distress, wheezes, rales, rhonchi, stridor Cardiovascular Exam: Present: regular rate, normal rhythm GI/Abdominal exam: Present: soft, tenderness (Epigastric), normal bowel sounds. Absent: distended Neurological exam: Present: alert, oriented X3, CN II-XII intact Psychiatric exam: Present: normal affect, normal mood Skin exam: Present: warm, dry, intact, normal color. Absent: rash Results CBC & Chem 7: 12/23/24 08:18 12/23/24 08:15 Labs: Abnormal Lab Results - Last 24 Hours (Table) 12/23/24 12/23/24 Range/Units 08:15 08:18 WBC 14.08 H (4.50-10.00) 10*3/uL RBC 5.25 H (4.10-5.20) 10*6/uL Hgb 15.9 H (12.0-15.0) g/dL Hct 47.6 H (37.2-46.3) % MPV 9.1 L (9.5-12.2) fL Immature Gran # 0.05 H (0.00-0.04) 10*3/uL Neutrophils # 11.83 H (1.80-7.70) 10*3/uL BUN 18 H (7-17) mg/dL Glucose 115 H (74-99) mg/dL Total Bilirubin 1.7 H (0.2-1.3) mg/dL AST 246 H (14-36) U/L ALT 107 H (4-34) U/L Alkaline Phosphatase 159 H (38-126) U/L Assessment and Plan Assessment: 1. Abdominal pain; cholelithiasis with possible acute cholecystitis -Patient is admitted for IV hydration and pain control - General Surgery is consulted 2. Elevated liver enzymes; ultrasound reveals mild hepatomegaly and cholelithiasis; will monitor liver enzymes 3. Cholelithiasis; gallbladder ultrasound reveals multiple tiny stones with debris with possible adenomyomatosis; Sinclair sign positive - General Surgery to evaluate patient and make further recommendations 4. Hypothyroidism; levothyroxine 75 mcg daily 5. GERD/gastritis; PPI 6. Vitamin D deficiency; continue with supplement
[2024-12-23] MEDS ORDERED: NON FORMULARY DRUG (Omeprazole [Omeprazole] 20 MG Capsule.Dr) PO SCH (21:00)
[2024-12-23] MEDS: ONDANSETRON 4 MG/2 ML VIAL IVP PRN (21:25)
[2024-12-24] MEDS: DEXAMETHASONE SOD PHOSPHATE 4 MG/ML 1 ML VIAL IVP STA (03:33)
[2024-12-24] MEDS: TIROSINT 75 MCG PO SCH (06:07)
[2024-12-24] MEDS ORDERED: MD COMMUNICATION TO PHARMACY 1 EACH MISC PO SCH (06:30)
[2024-12-24] MEDS ORDERED: LEVOTHYROXINE 75 MCG TAB PO SCH (06:30)
[2024-12-24] MEDS: PRENATAL VIT-IRON-FOLIC ACID 1 EACH TABLET PO SCH (08:18)
[2024-12-24] MEDS: CHOLECALCIFEROL 125 MCG (5000 IU) TABLET PO SCH (08:18)
[2024-12-24] MEDS: PANTOPRAZOLE 40 MG/10 ML VIAL IV SCH (08:18)
[2024-12-24 09:17] LABS: Basophils # (A) 0.02 10*3/uL (0.00-0.10); Basophils % (A) 0.3 %; Eosinophils # (A) 0.01 10*3/uL (0.04-0.35); Eosinophils % (A) 0.2 %; HCT 41.8 % (37.2-46.3); HGB 13.9 g/dL (12.0-15.0); Lymphocytes # (A) 0.45 10*3/uL (0.90-5.00); Lymphocytes % (A) 7.8 %; MCH 30.1 pg (27.0-32.0); MCHC 33.3 g/dL (32.0-37.0); MCV 90.5 fL (80.0-97.0); Mean Platelet Volume 9.1 fL (9.5-12.2); Monocytes % (A) 1.7 %; Neutrophils # (A) 5.16 10*3/uL (1.80-7.70); Neutrophils % (A) 89.5 %; Platelet Count 243 10*3/uL (140-440); RBC 4.62 10*6/uL (4.10-5.20); RDW 12.9 % (11.5-14.5); WBC 5.77 10*3/uL (4.50-10.00)
[2024-12-24 09:32] LABS: ALT 734 U/L (4-34); AST 536 U/L (14-36); African American GFR (CKD) >90 (>60 ml/min/1.73 sqM); Albumin 4.3 g/dL (3.5-5.0); Alkaline Phosphatase 263 U/L (38-126); Anion Gap 9 mmol/L; Bilirubin,Unconjugated 2.3 mg/dL (0.0-1.1); Blood Urea Nitrogen 13 mg/dL (7-17); Calcium 9.3 mg/dL (8.4-10.2); Carbon Dioxide 23 mmol/L (22-30); Chloride 107 mmol/L (98-107); Glucose 128 mg/dL (74-99); Lipase 122 U/L (23-300); Non-African American GFR(CKD) >90 (>60 ml/min/1.73 sqM); Potassium 4.1 mmol/L (3.5-5.1); Sodium 139 mmol/L (137-145); Total Bilirubin 4.3 mg/dL (0.2-1.3); Total Protein 6.6 g/dL (6.3-8.2)
--- NOTE | 2024-12-24 10:50 | P.GSCN ---
History of Present Illness Consult date: 12/24/24 Reason for Consult: choledocholithiasis History of present illness: this is a 34-year-old female who has had a several month history of inter mittent abdominal pain. Patient had an outpatient ultrasound which shows cholelithiasis. Patient's liver function tests showed mildly elevated transaminases. Patient is 5 months . Past Medical History Past Medical History: GERD/Reflux, Thyroid Disorder Additional Past Medical History / Comment(s): Patient has a history of hypothyroidism and renal calculi. Insulin-dependent gestational diabetes AND HTN, History of Any Multi-Drug Resistant Organisms: None Reported Past Surgical History: Section, Orthopedic Surgery Additional Past Surgical History / Comment(s): RT foot SX, LT KNEE, Past Anesthesia/Blood Transfusion Reactions: Postoperative Nausea & Vomiting (PONV) Past Psychological History: No Psychological Hx Reported Smoking Status: Never smoker Past Alcohol Use History: None Reported Past Drug Use History: None Reported - Past Family History Father Family Medical History: Hypertension Medications and Allergies Home Medications Medication Instructions Recorded Confirmed Type Cholecalciferol (Vitamin D3) 1,250 mcg PO BAXTER 10/13/23 12/23/24 History [Vitamin D3 (1250 Mcg = 50,000 Iu)] Omeprazole 20 mg PO BID 10/13/23 12/23/24 History Levothyroxine Sodium [Tirosint] 75 mcg PO DAILY 12/23/24 12/23/24 History Lle-Tqpi-Zosak Acid 1 cap PO DAILY 12/23/24 12/23/24 History [-U Capsule (formulary)] Allergies Allergy/AdvReac Type Severity Reaction Status Date / Time bacitracin AdvReac Rash/Hives Verified 12/23/24 12:18 Surgical - Exam Vital Signs Temp Pulse Resp BP Pulse Ox 97.3 F L 78 16 114/75 98 12/23/24 07:46 12/23/24 07:46 12/23/24 07:46 12/23/24 07:46 12/23/24 07:46 - General well developed, well nourished, no distress - Eyes PERRL - ENT normal pinna, normal nares - Neck no masses - Respiratory normal expansion - Cardiovascular Rhythm: regular - Abdomen Abdomen: soft, non tender Results - Labs 12/24/24 08:34 12/24/24 08:34 Abnormal Lab Results - Last 24 Hours (Table) 12/24/24 12/24/24 Range/Units 08:34 08:34 MPV 9.1 L (9.5-12.2) fL Lymphocytes # 0.45 L (0.90-5.00) 10*3/uL Monocytes # 0.10 L (0.20-1.00) 10*3/uL Eosinophils # 0.01 L (0.04-0.35) 10*3/uL Glucose 128 H (74-99) mg/dL Total Bilirubin 4.3 H (0.2-1.3) mg/dL Conjugated Bilirubin 1.0 H (0.0-0.3) mg/dL Unconjugated Bilirubin 2.3 H (0.0-1.1) mg/dL Delta Bilirubin 1.0 H (0.0-0.2) mg/dL AST 536 H (14-36) U/L ALT 734 H (4-34) U/L Alkaline Phosphatase 263 H (38-126) U/L Diabetes panel 12/24/24 Range/Units 08:34 Sodium 139 (137-145) mmol/L Potassium 4.1 (3.5-5.1) mmol/L Chloride 107 (98-107) mmol/L Carbon Dioxide 23 (22-30) mmol/L BUN 13 (7-17) mg/dL Creatinine 0.62 (0.52-1.04) mg/dL Glucose 128 H (74-99) mg/dL Calcium 9.3 (8.4-10.2) mg/dL AST 536 H (14-36) U/L ALT 734 H (4-34) U/L Alkaline Phosphatase 263 H (38-126) U/L Total Protein 6.6 (6.3-8.2) g/dL Albumin 4.3 (3.5-5.0) g/dL Calcium panel 12/24/24 Range/Units 08:34 Calcium 9.3 (8.4-10.2) mg/dL Albumin 4.3 (3.5-5.0) g/dL Pituitary panel 12/24/24 Range/Units 08:34 Sodium 139 (137-145) mmol/L Potassium 4.1 (3.5-5.1) mmol/L Chloride 107 (98-107) mmol/L Carbon Dioxide 23 (22-30) mmol/L BUN 13 (7-17) mg/dL Creatinine 0.62 (0.52-1.04) mg/dL Glucose 128 H (74-99) mg/dL Calcium 9.3 (8.4-10.2) mg/dL Adrenal panel 12/24/24 Range/Units 08:34 Sodium 139 (137-145) mmol/L Potassium 4.1 (3.5-5.1) mmol/L Chloride 107 (98-107) mmol/L Carbon Dioxide 23 (22-30) mmol/L BUN 13 (7-17) mg/dL Creatinine 0.62 (0.52-1.04) mg/dL Glucose 128 H (74-99) mg/dL Calcium 9.3 (8.4-10.2) mg/dL Total Bilirubin 4.3 H (0.2-1.3) mg/dL AST 536 H (14-36) U/L ALT 734 H (4-34) U/L Alkaline Phosphatase 263 H (38-126) U/L Total Protein 6.6 (6.3-8.2) g/dL Albumin 4.3 (3.5-5.0) g/dL Assessment and Plan Assessment: Cholelithiasis. Patient most likely has passed a gallstone. She will have her liver function tests repeated in the a.m.. She will remain NPO tomorrow morning.
--- NOTE | 2024-12-24 15:45 | P.PN ---
Subjective Progress Note Date: 12/24/24 34-year-old female who presents to the emergency department for abdominal pain. Patient has been dealing with postprandial epigastric pain radiating to the back for the last month. She had an ultrasound done at her PCPs office 3 days ago and received a call last night saying that it demonstrated acute cholecystitis. States that around 4 AM she developed a flareup that has been more severe than what she has experienced before. She has nausea but no vomiting. States that all she had last night was water and has not had anything to eat or drink since. Denies any fevers or chills. Denies any diarrhea or constipation. Blood work completed immediately reveals a WBC of 14.08, hemoglobin of 15.9 and platelet count of 281, sodium 142, potassium 4.3, BUN/creatinine of 18/0.61, total bilirubin of 1.7, AST of 246, ALT of 107, amylase lipase within normal limit gallbladder ultrasound reveals mild hepatomegaly and cholelithiasis Patient is admitted for further evaluation by surgery --Patient continues to have abdominal pain which is relieved by pain medication; has been evaluated by surgery; currently n.p.o. -- Liver enzymes are reviewed and continuing to trend up with total bilirubin up to 4.3, AST/ALT trending up to 536 and 734 - We will order MRCP; GI and surgery to evaluate tomorrow morning Objective - Vital Signs Vital signs: Vital Signs Temp 97.6 F 12/24/24 08:12 Pulse 79 12/24/24 08:26 Resp 18 12/24/24 08:12 BP 114/78 12/24/24 08:12 Pulse Ox 97 12/24/24 08:12 FiO2 Intake & Output 12/23/24 12/24/24 12/24/24 18:59 06:59 18:59 Intake Total 480 325 Balance 480 325 Weight 65.771 kg 66.2 kg Intake: IV 225 0.9 225 Intake, IV Titration 100 Amount metroNIDAZOLE-NS PMX 500 100 mg In Saline 1 100ml.bag @ 100 mls/hr IVPB Q8HR [facility] Rx#:[id number] Oral 480 Other: Voiding Method Toilet Toilet # Voids 2 - Exam General appearance: alert, in no apparent distress Head exam: Present: atraumatic, normocephalic, normal inspection Respiratory exam: Present: normal lung sounds bilaterally. Absent: respiratory distress, wheezes, rales, rhonchi, stridor Cardiovascular Exam: Present: regular rate, normal rhythm GI/Abdominal exam: Present: soft, tenderness (Epigastric), normal bowel sounds. Absent: distended Neurological exam: Present: alert, oriented X3, CN II-XII intact Psychiatric exam: Present: normal affect, normal mood Skin exam: Present: warm, dry, intact, normal color. Absent: rash - Labs CBC & Chem 7: 12/24/24 08:34 12/24/24 08:34 Labs: Abnormal Lab Results - Last 24 Hours (Table) 12/24/24 12/24/24 Range/Units 08:34 08:34 MPV 9.1 L (9.5-12.2) fL Lymphocytes # 0.45 L (0.90-5.00) 10*3/uL Monocytes # 0.10 L (0.20-1.00) 10*3/uL Eosinophils # 0.01 L (0.04-0.35) 10*3/uL Glucose 128 H (74-99) mg/dL Total Bilirubin 4.3 H (0.2-1.3) mg/dL Conjugated Bilirubin 1.0 H (0.0-0.3) mg/dL Unconjugated Bilirubin 2.3 H (0.0-1.1) mg/dL Delta Bilirubin 1.0 H (0.0-0.2) mg/dL AST 536 H (14-36) U/L ALT 734 H (4-34) U/L Alkaline Phosphatase 263 H (38-126) U/L Assessment and Plan Assessment: 1. Abdominal pain; cholelithiasis with possible acute cholecystitis -Patient is admitted for IV hydration and pain control - General Surgery is consulted 2. Elevated liver enzymes; ultrasound reveals mild hepatomegaly and cholelithiasis; will monitor liver enzymes 3. Cholelithiasis; gallbladder ultrasound reveals multiple tiny stones with debris with possible adenomyomatosis; Sinclair sign positive - General Surgery to evaluate patient and make further recommendations 4. Hypothyroidism; levothyroxine 75 mcg daily 5. GERD/gastritis; PPI 6. Vitamin D deficiency; continue with supplement
[2024-12-24] MEDS: METOCLOPRAMIDE 5 MG/ML 2 ML VIAL IVP PRN (15:50)
[2024-12-25] MEDS: KETOROLAC 15 MG/ML 1 ML VIAL IVP PRN (05:02)
[2024-12-25] MEDS: SODIUM CHLORIDE 0.9% 1,000 ML IV SCH (05:04)
[2024-12-25 07:29] LABS: HCT 39.7 % (37.2-46.3); HGB 13.2 g/dL (12.0-15.0); MCH 30.3 pg (27.0-32.0); MCHC 33.2 g/dL (32.0-37.0); MCV 91.1 fL (80.0-97.0); Mean Platelet Volume 9.5 fL (9.5-12.2); Platelet Count 228 10*3/uL (140-440); RBC 4.36 10*6/uL (4.10-5.20); RDW 12.7 % (11.5-14.5); WBC 6.68 10*3/uL (4.50-10.00)
[2024-12-25 08:03] LABS: ALT 549 U/L (4-34); AST 224 U/L (14-36); African American GFR (CKD) >90 (>60 ml/min/1.73 sqM); Albumin 3.9 g/dL (3.5-5.0); Alkaline Phosphatase 247 U/L (38-126); Anion Gap 11 mmol/L; Bilirubin, Conjugated 1.1 mg/dL (0.0-0.3); Bilirubin, Delta 1.4 mg/dL (0.0-0.2); Bilirubin,Unconjugated 1.9 mg/dL (0.0-1.1); Blood Urea Nitrogen 11 mg/dL (7-17); Calcium 8.9 mg/dL (8.4-10.2); Carbon Dioxide 22 mmol/L (22-30); Chloride 108 mmol/L (98-107); Glucose 113 mg/dL (74-99); Non-African American GFR(CKD) >90 (>60 ml/min/1.73 sqM); Potassium 3.4 mmol/L (3.5-5.1); Sodium 141 mmol/L (137-145); Total Bilirubin 4.4 mg/dL (0.2-1.3); Total Protein 6.2 g/dL (6.3-8.2)
[2024-12-25] MEDS ORDERED: Potassium Replacement Protocol 1 EACH MISC MISCELLANE PRN (09:05)
--- NOTE | 2024-12-25 10:43 | P.PN ---
Subjective Progress Note Date: 12/25/24 SURGICAL PROGRESS NOTE CHIEF COMPLAINT: Choledocholithiasis HISTORY OF PRESENT ILLNESS: Patient reports her pain is better this morning. Patient had another episode early this morning around 6 AM epigastric pain that radiated to the back. Did get relief with pain medication. She had vomiting yesterday. Afebrile. WBC 6.68 total bilirubin 4.4 LFTs are trending downwards. Patient scheduled for ERCP today with GI service PHYSICAL EXAM: VITAL SIGNS: Reviewed. GENERAL: Well-developed in no acute distress. HEENT: No sclera icterus. Extraocular movements grossly intact. Moist buccal mucosa. Head is atraumatic, normocephalic. ABDOMEN: Soft. Nondistended. Mild discomfort palpation right upper quadrant NEUROLOGIC: Alert and oriented. Cranial nerves II through XII grossly intact. ASSESSMENT: 1. Cholecystitis 2. Choledocholithiasis with elevated LFTs and total bilirubin PLAN: -Patient scheduled for ERCP today with GI service -Patient scheduled for laparoscopic cholecystectomy tomorrow with Dr. Gorman -Continue antibiotics -Potassium being replaced Physician Roofing Layer note has been reviewed by physician. Signing provider agrees with the documented findings, assessment, and plan of care. Objective - Vital Signs Vital signs: Vital Signs Temp 97.7 F 12/25/24 08:30 Pulse 69 12/25/24 08:30 Resp 17 12/25/24 08:30 BP 119/75 12/25/24 08:30 Pulse Ox 98 12/25/24 08:30 FiO2 Intake & Output 12/24/24 12/25/24 12/25/24 18:59 06:59 18:59 Intake Total 1020 625 Balance 1020 625 Weight 66.2 kg Intake: IV 525 0.9 525 Intake, IV Titration 100 Amount metroNIDAZOLE-NS PMX 500 100 mg In Saline 1 100ml.bag @ 100 mls/hr IVPB Q8HR [facility] Rx#:[id number] Oral 1020 Other: Voiding Method Toilet Toilet # Voids 3 1 - Labs CBC & Chem 7: 12/25/24 06:58 12/25/24 06:58 Labs: Abnormal Lab Results - Last 24 Hours (Table) 12/25/24 Range/Units 06:58 Potassium 3.4 L (3.5-5.1) mmol/L Chloride 108 H (98-107) mmol/L Glucose 113 H (74-99) mg/dL Total Bilirubin 4.4 H (0.2-1.3) mg/dL Conjugated Bilirubin 1.1 H (0.0-0.3) mg/dL Unconjugated Bilirubin 1.9 H (0.0-1.1) mg/dL Delta Bilirubin 1.4 H (0.0-0.2) mg/dL AST 224 H (14-36) U/L ALT 549 H (4-34) U/L Alkaline Phosphatase 247 H (38-126) U/L Total Protein 6.2 L (6.3-8.2) g/dL Microbiology - Last 24 Hours (Table) 12/23/24 08:18 Blood Culture - Preliminary Blood
[2024-12-25] MEDS: POTASSIUM CHLORIDE 10 MEQ in WATER FOR INJECTION 1 100ML.BAG IVPB SCH (11:41)
[2024-12-25] MEDS: HEPARIN SODIUM,PORCINE 5,000 UNIT/ML 1 ML VIAL SQ SCH (11:42)
--- NOTE | 2024-12-25 11:48 | P.CONS ---
History of Present Illness - Reason for Consult Consult date: 12/25/24 Elevated LFTs, cholecystitis Requesting physician: Kevin Gorman - Chief Complaint Abdominal pain - History of Present Illness This a pleasant 34-year-old female who presented to the emergency department 2 days ago with complaints of abdominal pain. She states she has had intermittent abdominal pain for the last 1 month duration. Patient is 5 months . Couple weeks ago she was seen by her PCP who ordered a abdominal ultrasound. She was called this past week and notified that ultrasound had shown cholecystitis. Over the last few days it has become more frequent and more intense.It is associated with nausea and vomiting. Patient was admitted with consultation to general surgery for concerns for cholecystitis. Patient was noted to have elevated LFTs with concerns for possible choledocholithiasis. Gastroenterology was consulted for further evaluation. Currently she states pain is well-controlled but she had morphine this morning. Otherwise she states she has still had dry heaves especially as pain returns. She has been afebrile. She had leukocytosis on admission. Started on IV Rocephin and Flagyl. Today's labs WBC 6.6 hemoglobin 13.2 platelet count 228,000 sodium 141 potassium 3.4 BUN 11 creatinine 0.6 total bilirubin 4.4 conjugated bili 1.1 unconjugated bilirubin 1.9 AST 224 ALT 549 alkaline phosphatase 247 Review of Systems REVIEW OF SYSTEMS: CARDIOPULMONARY: No chest pain or shortness of breath. Gastrointestinal: Abdominal pain. Nausea and vomiting. No hematemesis, coffee- ground emesis. No rectal bleeding, or melena. GENITOURINARY: No dysuria or hematuria. MUSCULOSKELETAL: Reports normal range of motion. SKIN: No rashes. No jaundice. ENDOCRINE: No chills, fevers. No excessive weight gain or loss. No polydipsia or polyuria. PSYCHIATRIC: Unremarkable. NEUROLOGY: No change in mental status. Denies dizziness, headache. ENT: Vision unremarkable. CONSTITUTIONAL: No recent weight loss. No fever, chills, night sweats. Past Medical History Past Medical History: GERD/Reflux, Thyroid Disorder Additional Past Medical History / Comment(s): Patient has a history of hypothyroidism and renal calculi. Insulin-dependent gestational diabetes AND HTN, History of Any Multi-Drug Resistant Organisms: None Reported Past Surgical History: Section, Orthopedic Surgery Additional Past Surgical History / Comment(s): RT foot SX, LT KNEE, Past Anesthesia/Blood Transfusion Reactions: Postoperative Nausea & Vomiting (PONV) Past Psychological History: No Psychological Hx Reported Smoking Status: Never smoker Past Alcohol Use History: None Reported Past Drug Use History: None Reported - Past Family History Father Family Medical History: Hypertension Medications and Allergies Home Medications Medication Instructions Recorded Confirmed Type Cholecalciferol (Vitamin D3) 1,250 mcg PO BAXTER 10/13/23 12/23/24 History [Vitamin D3 (1250 Mcg = 50,000 Iu)] Omeprazole 20 mg PO BID 10/13/23 12/23/24 History Levothyroxine Sodium [Tirosint] 75 mcg PO DAILY 12/23/24 12/23/24 History Pvs-Alrg-Wzbeg Acid 1 cap PO DAILY 12/23/24 12/23/24 History [-U Capsule (formulary)] Allergies Allergy/AdvReac Type Severity Reaction Status Date / Time bacitracin AdvReac Rash/Hives Verified 12/23/24 12:18 Physical Exam Vitals: Vital Signs Temp Pulse Resp BP Pulse Ox 12/25/24 03:31 97.9 F 83 16 120/80 99 12/25/24 02:00 75 12/24/24 23:35 97.8 F 71 16 96/62 98 12/24/24 20:00 75 12/24/24 19:50 97.8 F 75 17 123/78 99 12/24/24 15:56 89 17 121/76 99 12/24/24 11:26 75 17 109/69 98 Intake and Output 12/24/24 12/25/24 12/25/24 22:59 06:59 14:59 Intake Total 480 625 Balance 480 625 Intake: IV 525 0.9 525 Intake, IV Titration 100 Amount metroNIDAZOLE-NS PMX 500 100 mg In Saline 1 100ml.bag @ 100 mls/hr IVPB Q8HR [facility] Rx#:[id number] Oral 480 Other: Voiding Method Toilet Toilet # Voids 3 1 General appearance: The patient is alert, oriented, appears in no acute distress. HET: Head is normocephalic and atraumatic. Conjunctiva pink. Sclera anicteric. Neck: Supple without lymphadenopathy. Trachea midline. Heart: Regular. Lungs: Equal expansion, normal respiratory effort. Abdomen: Soft, right upper quadrant and epigastric tenderness, nondistended. Skin: No rashes. No jaundice. Extremities: Normal skin color and turgor. No pedal edema. Neurological: No focal deficits. Alert and oriented x3. Results CBC & Chem 7: 12/25/24 06:58 12/25/24 06:58 Labs: Abnormal Lab Results - Last 24 Hours (Table) 12/24/24 12/24/24 12/25/24 Range/Units 08:34 08:34 06:58 MPV 9.1 L (9.5-12.2) fL Lymphocytes # 0.45 L (0.90-5.00) 10*3/uL Monocytes # 0.10 L (0.20-1.00) 10*3/uL Eosinophils # 0.01 L (0.04-0.35) 10*3/uL Potassium 3.4 L (3.5-5.1) mmol/L Chloride 108 H (98-107) mmol/L Glucose 128 H 113 H (74-99) mg/dL Total Bilirubin 4.3 H 4.4 H (0.2-1.3) mg/dL Conjugated Bilirubin 1.0 H 1.1 H (0.0-0.3) mg/dL Unconjugated Bilirubin 2.3 H 1.9 H (0.0-1.1) mg/dL Delta Bilirubin 1.0 H 1.4 H (0.0-0.2) mg/dL AST 536 H 224 H (14-36) U/L ALT 734 H 549 H (4-34) U/L Alkaline Phosphatase 263 H 247 H (38-126) U/L Total Protein 6.2 L (6.3-8.2) g/dL Microbiology - Last 24 Hours (Table) 12/23/24 08:18 Blood Culture - Preliminary Blood Comments: Gallbladder ultrasound reports mild hepatomegaly. Cholelithiasis. There may be some adenomyomatosis of the gallbladder. CBD measures 0.6 cm. Assessment and Plan (1) Transaminitis Narrative/Plan: 34-year-old female with ongoing right upper quadrant abdominal pain over the last 1 month duration with outpatient follow-up and gallbladder evidence of acute cholecystitis presenting with increased abdominal pain associated with nausea nausea and vomiting. Leukocytosis on admission with elevated LFTs in a cholestatic pattern. Need to consider choledocholithiasis. Will plan for ERCP for further evaluation. Current Visit: Yes Status: Acute Code(s): R74.01 - ELEVATION OF LEVELS OF LIVER TRANSAMINASE LEVELS SNOMED Code(s): 741242136 (2) Acute cholecystitis Narrative/Plan: General surgery following Current Visit: Yes Status: Acute Code(s): K81.0 - ACUTE CHOLECYSTITIS SNOMED Code(s): 87012438 (3) Abdominal pain Current Visit: Yes Status: Acute Code(s): R10.9 - UNSPECIFIED ABDOMINAL PAIN SNOMED Code(s): 34142546 Plan: 1. Keep n.p.o. 2. Replace potassium per protocol 3. Indomethacin as ordered 1 hour prior to procedure 4. Continue IV antibiotics 5. Repeat CMP daily 6. General surgery following, continue with their recommendations 7. Patient scheduled for ERCP this afternoon. Procedure discussed with patient including risks and benefits. Patient seemingly understands and is agreeable with proceeding. For this consultation, we will continue to follow. Dr. Santos Miguel I agree with the dictator's note, documented as a scribe by Shannon Hall.
--- NOTE | 2024-12-25 11:53 | XR ---
EXAMINATION TYPE: XR chest 1V portable DATE OF EXAM: 12/25/2024 11:47 AM COMPARISON: None. CLINICAL INDICATION: Female, 34 years old with history of pre op, TECHNIQUE: XR chest 1V portable view(s) obtained. FINDINGS: The heart size is normal. The pulmonary vasculature is normal. The lungs are clear. IMPRESSION: 1. No acute pulmonary process. [facility], , 12/25/2024 11:51 AM
[2024-12-25] MEDS: INDOMETHACIN 100 MG SUPPOSITORY RECTAL ONE (12:37)
--- NOTE | 2024-12-25 13:20 | PN ---
PROGRESS NOTE DATE OF SERVICE: 12/25/2024 SUBJECTIVE: This is a 34-year-old woman who was admitted with possible cholelithiasis and cholecystitis, scheduled to have ERCP today by GI. The Surgery is also following the patient closely. The gallbladder ultrasound showed cholelithiasis and possibly adenomyomatosis. No chest pain or palpitation. PHYSICAL EXAMINATION: VITAL SIGNS: Pulse is 69, blood pressure n respirations 16. CHEST: Clear to auscultation bilaterally. CARDIOVASCULAR: S1 and S2. ABDOMEN: Soft, mild diffuse tenderness. LABORATORY DATA: Potassium 3.4, rest of the labs are noted. ASSESSMENT: 1. Abdominal pain, acute cholelithiasis with cholecystitis, possible adenomyomatosis. 2. Elevated liver enzymes, possibly choledocholithiasis. 3. Hypothyroidism. 4. Hypokalemia, mild. 5. Elevated WBC on admission. RECOMMENDATIONS AND DISCUSSION: This 34-year-old woman presented with multiple medical issues, we will monitor the patient closely. Continue with the current medications. Continue with the empiric antibiotics and symptomatic treatment. Otherwise, we will continue to monitor, follow with the surgery, repeat labs. Further recommendations to follow. DVT prophylaxis. MMODL / IJN: [id number] / MTDFlaca
[2024-12-25] MEDS ORDERED: MIDAZOLAM 2 MG/2 ML VIAL ONE (13:35)
[2024-12-25] MEDS ORDERED: PROPOFOL 10 MG/ML 20 ML VIAL IV ONE (13:35)
[2024-12-25] MEDS ORDERED: fentaNYL (PF) 50 MCG/ML 2 ML AMP ONE (13:35)
[2024-12-25] MEDS ORDERED: ONDANSETRON 4 MG/2 ML VIAL ONE (13:35)
[2024-12-25] MEDS ORDERED: IOPAMIDOL-300 30ML BTL INJ ONE (13:45)
[2024-12-25] MEDS: IOPAMIDOL-300 50ML BTL INJ ONE (13:45)
--- NOTE | 2024-12-25 13:58 | P.PCN ---
Date of Procedure: 12/25/24 Procedure(s) Performed: Brief history: Patient is a 34 year-old pleasant lady scheduled for an ERCP as part of evaluation of abdominal pain and elevated serum transaminases/jaundice for the last 2 days' duration. Labs reveal a bilirubin of 4.4 and elevated serum transaminases. Ultrasound did show evidence of gallstones but no biliary ductal dilation. Procedure performed: ERCP with biliary sphincterotomy y and balloon sweep Preoperative diagnoses: Elevated LFTs jaundice and epigastric pain IV sedation per anesthesia: Procedure: After informed consent was obtained from the patient and after the risks benefits and complications including bleeding perforation and pancreatitis explained in detail the patient was brought into the endoscopy unit. The patient was placed in prone position and IV conscious sedation was administered by anesthesia under continuous monitoring. The Olympus side-viewing duodenoscope was then inserted into the mouth and esophagus intubated without any difficulty. The scope was gradually advanced into the stomach and duodenum. The major papilla was identified without any difficulty. Initial cannulation resulted in opacification of the common bile duct which appeared with a faint filling defect in the distal common bile duct. At this time the catheter was exchanged over the guidewire with a biliary sphincterotome and a biliary sphincterotomy was performed at 11 o'clock position and extended to 1 cm in length. Following this an 8.5 mm balloon was passed of the common bile into the proximal CBD, gently inflated and withdrawn and I did not see any stone exiting the ampulla. This maneuver was repeated at least 4 times. Following this an occlusion cholangiogram was performed and no other filling defects were noted and the patient tolerated the procedure well. The pancreatic duct was intentionally not cannulated during the entire procedure. Impression: Normal-appearing common bile duct with a faint filling defect in the distal CBD status post biliary sphincterotomy followed by balloon sweep. No stones were seen exiting the ampulla Pancreatic duct intentionally not cannulated Recommendations: The findings of this examination were discussed with the patient as well as a family. She will be started on clear liquids. Repeat labs in the morning tomorrow. Proceed with gallbladder surgery tomorrow.
[2024-12-25] MEDS: IV FLUID CONTINUATION 1,000 ML IV ONE (13:59)
--- NOTE | 2024-12-25 14:15 | FL ---
EXAMINATION TYPE: FL ERCP Intraoperative/procedural fluoroscopic services were provided. CLINICAL INDICATION:Female, 34 years old with history of cholelithiasis; , [facility] FINDINGS: 2 fluoroscopic images for ERCP. No radiographic evidence for complication. Total fluoroscopy time is 15.8 seconds. DAP: 0.7411 Gycm2 Please see the operative/procedural note for further details. [facility], , 12/25/2024 2:13 PM
[2024-12-25] MEDS: LACTATED RINGERS 1,000 ML IV SCH (17:14)
[2024-12-26] MEDS ORDERED: MIDAZOLAM 2 MG/2 ML VIAL IV PRN (07:00)
[2024-12-26 07:16] LABS: Basophils # (A) 0.03 10*3/uL (0.00-0.10); Basophils % (A) 0.4 %; Eosinophils # (A) 0.08 10*3/uL (0.04-0.35); Eosinophils % (A) 1.1 %; HCT 40.4 % (37.2-46.3); HGB 13.5 g/dL (12.0-15.0); Lymphocytes % (A) 18.8 %; MCH 30.5 pg (27.0-32.0); MCHC 33.4 g/dL (32.0-37.0); MCV 91.2 fL (80.0-97.0); Mean Platelet Volume 9.1 fL (9.5-12.2); Monocytes # (A) 0.46 10*3/uL (0.20-1.00); Monocytes % (A) 6.2 %; Neutrophils # (A) 5.45 10*3/uL (1.80-7.70); Neutrophils % (A) 73.2 %; Platelet Count 234 10*3/uL (140-440); RBC 4.43 10*6/uL (4.10-5.20); RDW 12.7 % (11.5-14.5); WBC 7.44 10*3/uL (4.50-10.00)
[2024-12-26 07:42] LABS: ALT 361 U/L (4-34); AST 70 U/L (14-36); African American GFR (CKD) >90 (>60 ml/min/1.73 sqM); Albumin 4.1 g/dL (3.5-5.0); Alkaline Phosphatase 240 U/L (38-126); Anion Gap 12 mmol/L; Blood Urea Nitrogen 11 mg/dL (7-17); Calcium 9.2 mg/dL (8.4-10.2); Carbon Dioxide 20 mmol/L (22-30); Chloride 104 mmol/L (98-107); Glucose 58 mg/dL (74-99); Non-African American GFR(CKD) >90 (>60 ml/min/1.73 sqM); Sodium 136 mmol/L (137-145); Total Protein 6.2 g/dL (6.3-8.2)
[2024-12-26] MEDS: DEXTROSE 50% SYRINGE 50 ML IVP STA ×2 (08:41→12:56)
[2024-12-26] MEDS: DEXTROSE 5%-0.9% NACL 1,000 ML IV SCH ×2 (10:07→15:36)
[2024-12-26 11:06] LABS: Glucose,Whole Blood 63 mg/dL (70-110)
--- NOTE | 2024-12-26 11:10 | P.PN ---
Subjective Progress Note Date: 12/26/24 Principal diagnosis: Transaminitis, cholelithiasis with cholecystitis This a pleasant 34-year-old female who presented to the emergency department 2 days ago with complaints of abdominal pain. She states she has had intermittent abdominal pain for the last 1 month duration. Patient is 5 months . Couple weeks ago she was seen by her PCP who ordered a abdominal ultrasound. She was called this past week and notified that ultrasound had shown cholecystitis. Over the last few days it has become more frequent and more intense.It is associated with nausea and vomiting. Patient was admitted with consultation to general surgery for concerns for cholecystitis. Patient was noted to have elevated LFTs with concerns for possible choledocholithiasis. Gastroenterology was consulted for further evaluation. Currently she states pain is well-controlled but she had morphine this morning. Otherwise she states she has still had dry heaves especially as pain returns. She has been afebrile. She had leukocytosis on admission. Started on IV Rocephin and Flagyl. 12/26/2024 Patient seen and examined today as a follow-up. Yesterday she underwent ERCP with normal-appearing common bile duct with faint filling defect in the distal CBD status post biliary stent enterectomy followed by balloon sweep. There were no stones seen exiting the ampulla. Patient states abdominal pain has improved but still has some tenderness and nausea. She is scheduled to undergo c holecystectomy today with general surgery. She has been afebrile. No leukocytosis noted improvement in LFTs. Total bilirubin 2.0 AST 70 ALT 361 alkaline phosphatase 240 Objective - Vital Signs Vital signs: Vital Signs Temp 97.9 F 12/26/24 07:50 Pulse 72 12/26/24 07:50 Resp 16 12/26/24 07:50 BP 129/75 12/26/24 07:50 Pulse Ox 98 12/26/24 07:50 FiO2 Intake & Output 12/25/24 12/26/24 12/26/24 18:59 06:59 18:59 Intake Total 1730 450 Balance 1730 450 Weight 65.3 kg Intake: IV 950 0.9 750 Intake, IV Titration 300 450 Amount Sodium Chloride 0.9% 1, 150 450 000 ml @ 75 mls/hr IV . [id number] [facility] Rx#:[id number] cefTRIAXone 1 gm In 50 Sodium Chloride 0.9% 50 ml @ 100 mls/hr IVPB DAILY [facility] Rx#:[id number] metroNIDAZOLE-NS PMX 500 100 mg In Saline 1 100ml.bag @ 100 mls/hr IVPB Q8HR [facility] Rx#:[id number] Oral 480 Other: Voiding Method Toilet Toilet Toilet # Voids 3 1 - Labs CBC & Chem 7: 12/26/24 06:51 12/26/24 06:51 Labs: Abnormal Lab Results - Last 24 Hours (Table) 12/26/24 12/26/24 Range/Units 06:51 06:51 MPV 9.1 L (9.5-12.2) fL Sodium 136 L (137-145) mmol/L Carbon Dioxide 20 L (22-30) mmol/L Glucose 58 L (74-99) mg/dL Total Bilirubin 2.0 H (0.2-1.3) mg/dL AST 70 H (14-36) U/L ALT 361 H (4-34) U/L Alkaline Phosphatase 240 H (38-126) U/L Total Protein 6.2 L (6.3-8.2) g/dL Microbiology - Last 24 Hours (Table) 12/23/24 08:18 Blood Culture - Preliminary Blood Assessment and Plan (1) Transaminitis Current Visit: Yes Status: Acute Code(s): R74.01 - ELEVATION OF LEVELS OF LIVER TRANSAMINASE LEVELS SNOMED Code(s): 270581683 (2) Acute cholecystitis Current Visit: Yes Status: Acute Code(s): K81.0 - ACUTE CHOLECYSTITIS [facility] Code(s): 23374627 (3) Abdominal pain Current Visit: Yes Status: Acute Code(s): R10.9 - UNSPECIFIED ABDOMINAL PAIN SNOMED Code(s): 51064083
[2024-12-26 11:36] LABS: Glucose,Whole Blood 189 mg/dL (70-110)
[2024-12-26] MEDS: IV FLUID CONTINUATION 1,000 ML IV ONE ×2 (11:46→13:06)
[2024-12-26] MEDS: SCOPOLAMINE 1 MG/72 HR PATCH TRANSDERM STA (11:47)
[2024-12-26] MEDS: DEXAMETHASONE SOD PHOSPHATE 4 MG/ML 1 ML VIAL IVP STA (11:48)
[2024-12-26] MEDS ORDERED: LIDOCAINE 1% INJ 10MG/ML (20 ML MDV) ONE (11:49)
[2024-12-26] MEDS ORDERED: NEOSTIGMINE 1 MG/ML 10 ML VIAL ONE (11:49)
[2024-12-26] MEDS ORDERED: SUCCINYLCHOLINE CHLORIDE 200 MG/10 ML VIAL IV ONE (11:49)
[2024-12-26] MEDS ORDERED: ROCURONIUM 10 MG/ML (5 ML VIAL) IV ONE (11:49)
[2024-12-26] MEDS ORDERED: fentaNYL (PF) 50 MCG/ML 2 ML AMP ONE (11:49)
[2024-12-26] MEDS ORDERED: PROPOFOL 10 MG/ML 20 ML VIAL IV ONE (11:49)
[2024-12-26] MEDS ORDERED: MIDAZOLAM 2 MG/2 ML VIAL ONE (11:49)
[2024-12-26] MEDS ORDERED: GLYCOPYRROLATE 0.2 MG/ML 2 ML VIAL ONE (11:49)
[2024-12-26] MEDS ORDERED: HEPARIN SODIUM,PORCINE 5,000 UNIT/ML 1 ML VIAL ONE (11:49)
[2024-12-26] MEDS: BUPIVACAINE (PF) 0.25% 30 ML VIAL SQ ONE (12:08)
--- NOTE | 2024-12-26 12:55 | P.OP ---
Date of Procedure: 12/26/24 Procedure(s) Performed: PREOPERATIVE DIAGNOSIS: Choledocholithiasis POSTOPERATIVE DIAGNOSIS: Same PROCEDURE: Laparoscopic cholecystectomy SURGEON: Vita EBL: 5 ruby ANESTHESIA: Gen. COMPLICATIONS: None OPERATIVE PROCEDURE: The patient was brought and placed on the operating room table in the supine position. The patient was placed under general anesthesia at that time. The abdomen was prepped and draped in the usual sterile fashion. A small vertical infraumbilical incision was made. The fascia was grasped with the Devika forceps. The fascia was retracted anteriorly. The Veress needle was advanced into the peritoneal cavity. The saline drop test was normal. Insufflation took place up to 15 mmHg. A 5 mm optical trocar was advanced and the peritoneal cavity. 2 additional 5 mm trochars were placed in the right upper quadrant under direct visualization. A 12 mm trocar was advanced into the epigastric incision site. The gallbladder was retracted superiorly and laterally. The peritoneum overlying the infundibulum was bluntly dissected. The patient's cystic duct was visualized. The junction between the cystic duct common and hepatic duct was identified. The critical view of safety was achieved after blunt dissection. The cystic duct was prominent in diameter which is anticipated given the recent passage of a stone. The cystic duct proximally was divided after a 2-0 Ethibond stitch was used to ligate the cystic duct on the patient's side. This was tied down using a tie knot device. 2 additional 12 mm clips were also placed on the cystic duct just distal to the 2- 0 Ethibond stitch. The cystic artery was identified and clipped as well. A small vessel was seen along the gallbladder fossa and clipped as well. The gallbladder was then removed from the liver bed using electrocautery. The gallbladder was then removed from the epigastric trocar site with an Endo Catch bag. The gallbladder fossa was irrigated with saline. There was no evidence of any bleeding or biliary drainage seen. The fascia at the 12 millimeter site was closed using a Deuce-Juan Jose 0 Vicryl stitch. The trochars were then removed. The skin at all 4 sites was closed using a 4-0 Monocryl stitch. Skin glue was utilized on the incision sites. At the end of this procedure the sponge and ne edle counts were correct. DISPOSITION: Stable to the recovery room
[2024-12-26] MEDS: HYDROmorphone 0.5 MG/0.5 ML SYRINGE IVP STA (13:19)
[2024-12-26] MEDS: MORPHINE SULFATE 2 MG/ML SYRINGE IVP STA ×2 (14:06→14:15)
--- NOTE | 2024-12-26 14:08 | PN ---
PROGRESS NOTE DATE OF SERVICE: 12/26/2024 SUBJECTIVE: This is a 34-year-old woman who was admitted with abdominal pain, acute cholelithiasis and underwent ERCP yesterday. The patient has some mild hypoglycemia today. No chest pain. No palpitations. Bilirubin is improving, slated for cholecystectomy today. PHYSICAL EXAMINATION: VITAL SIGNS: Pulse is 72, blood pressure 110/70, and respirations 16. CHEST: Clear to auscultation. CARDIOVASCULAR: S1 and S2. ABDOMEN: Soft. Minimal discomfort. LABORATORY DATA: Reviewed. ASSESSMENT: 1. Abdominal pain, acute cholelithiasis with cholecystitis, possible adenomyomatosis. 2. Status post ERCP with choledocholithiasis. 3. Elevated liver enzymes. 4. Hypothyroidism. 5. Hypokalemia, mild. 6. Elevated WBC on admission. RECOMMENDATIONS: Recommend to continue current management and continue symptomatic treatment. Otherwise repeat labs in the morning. Closely follow with Surgery, Gastroenterology. Change the IV fluids to D5 0.9. Further recommendations to follow. MMODL / IJN: [id number] /
[2024-12-26 14:54] LABS: Glucose,Whole Blood 75 mg/dL (70-110)
[2024-12-26] MEDS: D5-0.9% NACL WITH KCL 20 MEQ/L 1,000 ML IV SCH (15:40)
[2024-12-26 16:42] LABS: Glucose,Whole Blood 82 mg/dL (70-110)
[2024-12-26] MEDS: IBUPROFEN 400 MG TAB PO PRN (18:00)
[2024-12-26 20:17] LABS: Glucose,Whole Blood 99 mg/dL (70-110)
[2024-12-27 06:20] LABS: Glucose,Whole Blood 77 mg/dL (70-110)
[2024-12-27] MEDS ORDERED: ACETAMINOPHEN TAB 325 MG TAB PO PRN (07:48)
[2024-12-27] MEDS ORDERED: HYDROcodone/APAP 5-325MG 1 EACH TAB PO PRN (07:49)
[2024-12-27 08:30] VITALS: RESP 17; TEMP 98
[2024-12-27 09:07] LABS: Basophils # (A) 0.02 10*3/uL (0.00-0.10); Basophils % (A) 0.2 %; Eosinophils # (A) 0.05 10*3/uL (0.04-0.35); Eosinophils % (A) 0.5 %; HCT 40.7 % (37.2-46.3); HGB 13.7 g/dL (12.0-15.0); Lymphocytes % (A) 18.8 %; MCH 30.5 pg (27.0-32.0); MCHC 33.7 g/dL (32.0-37.0); MCV 90.6 fL (80.0-97.0); Mean Platelet Volume 9.1 fL (9.5-12.2); Monocytes % (A) 8.4 %; Neutrophils # (A) 6.87 10*3/uL (1.80-7.70); Neutrophils % (A) 71.8 %; Platelet Count 254 10*3/uL (140-440); RBC 4.49 10*6/uL (4.10-5.20); WBC 9.57 10*3/uL (4.50-10.00)
[2024-12-27 09:32] LABS: ALT 263 U/L (4-34); AST 40 U/L (14-36); African American GFR (CKD) >90 (>60 ml/min/1.73 sqM); Albumin 3.9 g/dL (3.5-5.0); Alkaline Phosphatase 232 U/L (38-126); Anion Gap 12 mmol/L; Blood Urea Nitrogen 10 mg/dL (7-17); Calcium 9.4 mg/dL (8.4-10.2); Carbon Dioxide 24 mmol/L (22-30); Chloride 100 mmol/L (98-107); Glucose 75 mg/dL (74-99); Non-African American GFR(CKD) >90 (>60 ml/min/1.73 sqM); Potassium 3.6 mmol/L (3.5-5.1); Sodium 136 mmol/L (137-145); Total Bilirubin 1.7 mg/dL (0.2-1.3); Total Protein 6.1 g/dL (6.3-8.2)
--- NOTE | 2024-12-27 10:29 | P.PN ---
Subjective Progress Note Date: 12/27/24 Principal diagnosis: Transaminitis, cholelithiasis with cholecystitis This a pleasant 34-year-old female who presented to the emergency department 2 days ago with complaints of abdominal pain. She states she has had intermittent abdominal pain for the last 1 month duration. Patient is 5 months . Couple weeks ago she was seen by her PCP who ordered a abdominal ultrasound. She was called this past week and notified that ultrasound had shown cholecystitis. Over the last few days it has become more frequent and more intense.It is associated with nausea and vomiting. Patient was admitted with consultation to general surgery for concerns for cholecystitis. Patient was noted to have elevated LFTs with concerns for possible choledocholithiasis. Gastroenterology was consulted for further evaluation. Currently she states pain is well-controlled but she had morphine this morning. Otherwise she states she has still had dry heaves especially as pain returns. She has been afebrile. She had leukocytosis on admission. Started on IV Rocephin and Flagyl. 12/26/2024 Patient seen and examined today as a follow-up. Yesterday she underwent ERCP with normal-appearing common bile duct with faint filling defect in the distal CBD status post biliary stent enterectomy followed by balloon sweep. There were no stones seen exiting the ampulla. Patient states abdominal pain has improved but still has some tenderness and nausea. She is scheduled to undergo c holecystectomy today with general surgery. She has been afebrile. No leukocytosis noted improvement in LFTs. Total bilirubin 2.0 AST 70 ALT 361 alkaline phosphatase 240 12/27/2024 Patient seen and examined today as a follow-up. Still having some mild right upper quadrant discomfort but she thinks it is secondary to gas. She is postop day #1 for laparoscopic cholecystectomy. She has been afebrile. Tolerating regular diet. Has been up and ambulating. No nausea or vomiting. LFTs continue to trend down. No leukocytosis. Objective - Vital Signs Vital signs: Vital Signs Temp 98.0 F 12/27/24 08:25 Pulse 84 12/27/24 08:25 Resp 17 12/27/24 08:25 BP 120/71 12/27/24 08:25 Pulse Ox 98 12/27/24 08:25 FiO2 Intake & Output 12/26/24 12/27/24 12/27/24 18:59 06:59 18:59 Intake Total 1500 540 Output Total 5 Balance 1495 540 Weight 65 kg Intake: IV 1500 Oral 540 Output: Estimated Blood Loss 5 Other: Voiding Method Toilet Toilet Toilet # Voids 3 - Exam General appearance: The patient is alert, oriented, appears in no acute distress. HET: Head is normocephalic and atraumatic. Conjunctiva pink. Sclera anicteric. Neck: Supple without lymphadenopathy. Abdomen: Soft, mild right upper quadrant tenderness, nondistended. Extremities: Normal skin color and turgor. No pedal edema Skin: No rashes, no jaundice Neurological: No focal deficits. Alert and oriented. - Labs CBC & Chem 7: 12/27/24 07:17 12/27/24 07:17 Labs: Abnormal Lab Results - Last 24 Hours (Table) 12/26/24 12/26/24 12/27/24 Range/Units 11:05 11:35 07:17 MPV 9.1 L (9.5-12.2) fL POC Glucose (mg/dL) 63 L 189 H (70-110) mg/dL Microbiology - Last 24 Hours (Table) 12/23/24 08:18 Blood Culture - Preliminary Blood Assessment and Plan (1) Transaminitis Narrative/Plan: 34-year-old female with ongoing right upper quadrant abdominal pain over the la st 1 month duration with outpatient follow-up and gallbladder evidence of acute cholecystitis presenting with increased abdominal pain associated with nausea nausea and vomiting. Leukocytosis on admission with elevated LFTs in a cholestatic pattern. Need to consider choledocholithiasis. Will plan for ERCP for further evaluation. Current Visit: Yes Status: Acute Code(s): R74.01 - ELEVATION OF LEVELS OF LIVER TRANSAMINASE LEVELS SNOMED Code(s): 204173441 (2) Acute cholecystitis Narrative/Plan: General surgery following. Patient is postop day #1 for laparoscopic cholecystectomy Current Visit: Yes Status: Acute Code(s): K81.0 - ACUTE CHOLECYSTITIS SNOMED Code(s): 96526952 (3) Abdominal pain Current Visit: Yes Status: Acute Code(s): R10.9 - UNSPECIFIED ABDOMINAL PAIN SNOMED Code(s): 88135732 Plan: 1. Diet per general surgery 2. No further workup from gastroenterology 3. Continue with recommendations from general surgery Thank you for this consultation, patient is cleared from gastroenterology for discharge Dr. Santos Miguel I agree with the dictator's note, documented as a scribe by Shannon Hall.
[2024-12-27 11:18] VITALS: BP 123/83; PULSE 71
[2024-12-27 11:41] LABS: Glucose,Whole Blood 71 mg/dL (70-110)
--- NOTE | 2024-12-27 12:10 | P.DS ---
Providers Date of admission: 12/23/24 10:08 Expected date of discharge: 12/27/24 Attending physician: Noah Clark Consults: 12/23/24 10:16 Consult Physician Urgent Consulting Provider: Kevin Gorman Consult Reason/Comments: Cholecystitis Do you want consulting provider notified?: Yes 12/24/24 09:55 Consult Physician Urgent Consulting Provider: Dee Dee Miguel Consult Reason/Comments: elevating LFTs, cholecystitis Do you want consulting provider notified?: Yes, Notify in am Primary care physician: Nik Mosquera Hospital Course: Discharge diagnosis 1. Choledocholithiasis Hospital course This is a 34-year-old female who presented with right upper quadrant abdominal pain. Ultrasound reported cholelithiasis, mild hepatomegaly, there may be some adenomyomatosis of the gallbladder. Patient did have an elevated liver enzymes and total bilirubin. There were concerns for choledocholithiasis. Patient seen by GI service and had ERCP completed that reported a normal-appearing common bile duct with a faint filling defect in the distal CBD status post biliary sphincterotomy. No evidence of stones. Patient is status post laparoscopic cholecystectomy. She tolerated surgery well. Her pain is controlled. She is tolerating diet. She is afebrile. She has been up and ambulating. She is having flatus. She is stable for discharge. Physician Le[employer] Artisan note has been reviewed by physician. Signing provider agrees with the documented findings, assessment, and plan of care. Patient Condition at Discharge: Stable Plan - Discharge Summary New Discharge Prescriptions: New Acetaminophen Tab [Tylenol] 1,000 mg PO Q6HR PRN #30 tablet PRN Reason: Pain Ibuprofen [Motrin] 600 mg PO Q8HR PRN #30 tab PRN Reason: Pain Continue Cholecalciferol (Vitamin D3) [Vitamin D3 (1250 Mcg = 50,000 Iu)] 1,250 mcg PO BAXTER [id number]-Leutq Acid [-U Capsule (formulary)] 1 cap PO DAILY Omeprazole 20 mg PO BID Levothyroxine Sodium [Tirosint] 75 mcg PO DAILY Discharge Medication List Cholecalciferol (Vitamin D3) [Vitamin D3 (1250 Mcg = 50,000 Iu)] 1,250 mcg PO BAXTER 10/13/23 [History] Omeprazole 20 mg PO BID 10/13/23 [History] Levothyroxine Sodium [Tirosint] 75 mcg PO DAILY 12/23/24 [History] Ege-Oirq-Jjvpo Acid [-U Capsule (formulary)] 1 cap PO DAILY 12/23/24 [History] Acetaminophen Tab [Tylenol] 1,000 mg PO Q6HR PRN #30 tablet 12/27/24 [Rx] Ibuprofen [Motrin] 600 mg PO Q8HR PRN #30 tab 12/27/24 [Rx] Follow up Appointment(s)/Referral(s): Kevin Gorman MD [Medical Doctor] - 1 Week Nik Mosquera MD [Primary Care Provider] - 1-2 days Patient Instructions/Handouts: Low Fat Diet (DC), Laparoscopic Cholecystectomy (DC), ERCP (Endoscopic Retrograde Cholangiopancreatography) (DC) Activity/Diet/Wound Care/Special Instructions: low fat diet No lifting over 10 pounds You may shower. No soaking or tub baths for 2 weeks Very light activity until you are reevaluated at your follow up appointment with your surgeon Discharge/Stand Alone Forms: Work/Release Restrictions Form Discharge Disposition: HOME SELF-CARE
--- NOTE | 2024-12-27 12:19 | P.PN ---
Subjective Progress Note Date: 12/27/24 SURGICAL PROGRESS NOTE CHIEF COMPLAINT: Choledocholithiasis HISTORY OF PRESENT ILLNESS: Patient postop day 1 status post laparoscopic cholecystectomy. She is tolerating diet. Pain is controlled. Denies any nausea or vomiting. She did complain of gas pains. Afebrile. WBC 9.57 total bilirubin down from 2-1.7 LFTs trending down PHYSICAL EXAM: VITAL SIGNS: Reviewed. GENERAL: Well-developed in no acute distress. HEENT: No sclera icterus. Extraocular movements grossly intact. Moist buccal mucosa. Head is atraumatic, normocephalic. ABDOMEN: Soft. Nondistended. Incision sites clean dry and intact NEUROLOGIC: Alert and oriented. Cranial nerves II through XII grossly intact. ASSESSMENT: 1. Choledocholithiasis status post laparoscopic cholecystectomy PLAN: -Patient can be discharged in surgical standpoint -Prescription for Tylenol Motrin given for pain -No further antibiotics required after discharge Physician Gerontology Aide note has been reviewed by physician. Signing provider agrees with the documented findings, assessment, and plan of care. Objective - Vital Signs Vital signs: Vital Signs Temp 98.0 F 12/27/24 11:17 Pulse 71 12/27/24 11:17 Resp 17 12/27/24 11:17 BP 123/83 12/27/24 11:17 Pulse Ox 99 12/27/24 11:17 FiO2 Intake & Output 12/26/24 12/27/24 12/27/24 18:59 06:59 18:59 Intake Total 1500 540 290 Output Total 5 Balance 1495 540 290 Weight 65 kg Intake: IV 1500 Intake, IV Titration 50 Amount cefTRIAXone 1 gm In 50 Sodium Chloride 0.9% 50 ml @ 100 mls/hr IVPB DAILY [facility] Rx#:[id number] Oral 540 240 Output: Estimated Blood Loss 5 Other: Voiding Method Toilet Toilet Toilet # Voids 3 1 - Labs CBC & Chem 7: 12/27/24 07:17 12/27/24 07:17 Labs: Abnormal Lab Results - Last 24 Hours (Table) 12/27/24 12/27/24 Range/Units 07:17 07:17 MPV 9.1 L (9.5-12.2) fL Sodium 136 L (137-145) mmol/L Total Bilirubin 1.7 H (0.2-1.3) mg/dL AST 40 H (14-36) U/L ALT 263 H (4-34) U/L Alkaline Phosphatase 232 H (38-126) U/L Total Protein 6.1 L (6.3-8.2) g/dL Microbiology - Last 24 Hours (Table) 12/23/24 08:18 Blood Culture - Preliminary Blood
[2024-12-27] MEDS ORDERED: IOPAMIDOL-300 30ML BTL MISCELLANE ONE (12:40)
== END 2024-12-27 12:41 | disposition home or self-care (01) | DRG 419 ==
LOC: EC 07:38 → 6NMEDSUR 10:07 → OBSVTOIN 10:08 → 6NMEDSUR 12:11 → 3SCARD 14:14
PROVIDERS: ADMIT Internal Medicine; ATTEND Internal Medicine
PROC: 0F798ZZ Dilation of Common Bile Duct, Via Natural or Artificial Opening Endoscopic (ICD-10-PCS; 2024-12-25 08:40)
PROC: 0FT44ZZ Resection of Gallbladder, Percutaneous Endoscopic Approach (ICD-10-PCS; principal; 2024-12-26 12:00)
DX: K80.64 Calculus of gallbladder and bile duct with chronic cholecystitis without obstruction (principal); R16.0 Hepatomegaly, not elsewhere classified; I10 Essential (primary) hypertension; E03.9 Hypothyroidism, unspecified; Z79.890 Hormone replacement therapy; K21.9 Gastro-esophageal reflux disease without esophagitis; E87.6 Hypokalemia; R74.01 Elevation of levels of liver transaminase levels; E55.9 Vitamin D deficiency, unspecified; Z86.32 Personal history of gestational diabetes; Z82.49 Family history of ischemic heart disease and other diseases of the circulatory system; Z87.442 Personal history of urinary calculi; Z88.1 Allergy status to other antibiotic agents
CPT/HCPCS: 36415; 43262; 43277; 71045; 74330; 76705; 80048; 80053; 80076; 82150; 83605; 83690; 84703; 85025; 85027; 85610; 85730; 87040; 88304; 93005; 96361; 96365; 96375; 96376; 99285

== ENCOUNTER → 2024-12-30 | Outpatient (CLI) | payer MEDICAID ==
[2024-12-30 13:27] LABS: ALT 123 U/L (8-44); AST 25 U/L (13-35); Albumin 4.4 g/dL (3.8-4.9); Albumin/Globulin Ratio 1.69 Ratio (1.60-3.17); Alkaline Phosphatase 164 U/L (41-126); Blood Urea Nitrogen 18.9 mg/dL (9.0-27.0); Calcium 9.9 mg/dL (8.7-10.3); Carbon Dioxide 25.6 mmol/L (21.6-31.8); Chloride 105 mmol/L (96-109); Globulin 2.6 g/dL (1.6-3.3); Glucose 88 mg/dL (70-110); Potassium 4.4 mmol/L (3.5-5.5); Sodium 143 mmol/L (135-145); Total Bilirubin 0.8 mg/dL (0.3-1.2)
== END | disposition home or self-care (01) ==
LOC: LABWHC1 08:37
PROVIDERS: ATTEND Registered Nurse
DX: K81.9 Cholecystitis, unspecified (principal)
CPT/HCPCS: 36415; 80053